=== PATIENT | female | born 1970 | race Caucasian/White ===

== ENCOUNTER → 2017-05-08 | Outpatient (CLI) | payer OTHER ==
[~2017-05-08] VITALS: Ht 167.6 cm; Wt 83.9 kg
[~2017-05-08] MED LIST: BUPROPION HCL150 M1 PO; DICLOFENAC-MIS1 EAC1 PO; HYDROCODONE-APA1 TA1 PO; HYSINGLA ER30 MG PO; MELATONIN5 M1 PO; NEURONTIN 300300 M1 PO; PEPCID20 MG PO; PRILOSEC 20 MG20 MG PO; VITAMIN D1000 UNI1 PO; XANAX 0.5 MG0.5 MG PO
[2017-05-08 08:46] VITALS: BP 133/94
== END | disposition home or self-care (01) ==
LOC: PAIN 06:49
DX: M25.561 Pain in right knee (principal); M25.562 Pain in left knee; K92.89 Other specified diseases of the digestive system; F32.89 Other specified depressive episodes; F11.20 Opioid dependence, uncomplicated; Z98.890 Other specified postprocedural states

== ENCOUNTER → 2017-06-05 | Outpatient (CLI) | payer OTHER ==
[~2017-06-05] VITALS: Ht 165.1 cm; Wt 80.7 kg
--- NOTE | ~2017-06-05 | HPC ---
[facility] [address] PAIN MANAGEMENT CONSULTATION Name: FREDERIC CA Room #: REG NIYAH Vitale.#: [id number] Admission: 06/05/17 Attend Phys: Angela Cardoza MD Discharge: Date of : 74 Report #: [id number] THIS REPORT FOR: //name// CC: HENNY Knight DATE OF SERVICE: 06/05/2017 FOLLOWUP COMPLAINT: The Hysingla is helpful. FOLLOWUP HISTORY: The patient is a 46-year-old female who has been seen in the pain clinic because of bilateral knee pain. She has seen her orthopedic surgeon. He does not feel that a knee replacement is in order given the patient's young age. She states she indicates the pain is because of the bone around the knee, but not the knee joint itself. She is scheduling a visit to the [facility] for evaluation and possible treatment. She has found the Hysingla (slow release hydrocodone) helpful. She is happy with the once a day dosing. She does still feel that there is some residual pain, which is there particularly after work. This limits her ability to engage in activities she would like to. She does not have any significant bowel or bladder dysfunction. IMPRESSION: 1. Knee pain bilaterally -- the patient will go to [place] for evaluation. 2. Chronic colon problems, stomach problems, and emotional problems, stable at this juncture. RECOMMENDATION: A renewal of her script for Hysingla has been written, 30 mg 1 p.o. every day. We may consider increasing the dose at the next visit if her pain continues to be problematic. We discussed tolerance with opioid medications as well as the possibility of dependence and addiction. The patient feels that things are going reasonably well, this medication has enabled her to engage in activities she would not be able to. She is able to continue with her job. She would like to continue with her current medical regimen. Her is in attendance today. We would like to thank you for letting us participate in her care. We hope she continues to improve. By: [id number] Angela Cardoza MD /nt
[2017-06-05 08:07] VITALS: BP 127/88
== END | disposition home or self-care (01) ==
LOC: PAIN 06:54
DX: M25.562 Pain in left knee (principal); M25.561 Pain in right knee; Z87.891 Personal history of nicotine dependence

== ENCOUNTER → 2017-06-19 | Outpatient (CLI) | payer OTHER ==
[~2017-06-19] VITALS: Ht 165.1 cm; Wt 80.9 kg
[~2017-06-19] MED LIST changes: +AMITRIPTYLINE H10 M3 PO; +HYSINGLA ER40 MG PO
--- NOTE | ~2017-06-19 | HPC ---
[facility] [place] [address] PAIN MANAGEMENT CONSULTATION Name: FREDERIC CA Room #: REG NIYAH MominEulaliaMary.#: [id number] Admission: 06/19/17 Attend Phys: Angela Cardoza MD Discharge: Date of : 74 Report #: [id number] THIS REPORT FOR: //name// CC: JEFFERY White Nurse Practitioner Angela Cardoza DATE OF SERVICE: 06/19/2017 FOLLOWUP COMPLAINT: The medicine is not working very well. FOLLOWUP HISTORY: The patient is a 46-year-old female who has pain and discomfort involving her knees bilaterally. She is awaiting evaluation and possible treatment at the [facility]. She works for [employer]. She finds that hydrocodone 30 mg times, using Hysingla which is a slow release hydrocodone is not as effective. She rates her pain as 8 out of 10. Notes pain is worse with walking, sitting and it is more problematic for her to engage in activities of daily living and maintain her job. She would like to have her medications evaluated and has returned to the pain clinic. PHYSICAL EXAMINATION: Height 5 feet 5 inches, weight 170 pounds, BMI is 29, blood pressure 128/86, pulse 84, respirations 16, room air saturation is 99%. IMPRESSION: 1. Knee pain -- the patient has pain and discomfort in her knees. She is experiencing pain bilaterally. 2. Chronic colon problems, stomach problems, and emotional problems, stable. RECOMMENDATIONS: We discussed the treatment options. We will increase her Hysingla from 30 mg daily to the next dose which is 40 mg 1 p.o. every day. She will also try Elavil 10 mg at bedtime. She has been having quite a bit of difficulty in sleeping. Hopefully, this medication in conjunction with the change in Hysingla will help and provide more comfort as well as improved sleep and mood. We would like to thank you for letting us participate in her care. We hope she continues to improve. By: [id number] Angela Cardoza MD /
[2017-06-19 08:27] VITALS: BP 128/86
== END ==
LOC: PAIN 06:58
DX: M25.562 Pain in left knee (principal); M25.561 Pain in right knee

== ENCOUNTER → 2017-07-17 | Outpatient (CLI) | payer OTHER ==
[~2017-07-17] VITALS: Ht 165.1 cm; Wt 80.7 kg
[~2017-07-17] MED LIST changes: +AMITRIPTYLINE H25 M2 PO; +MOBIC15 MG PO; +NEXIUM40 MG PO
--- NOTE | ~2017-07-17 | HPC ---
[facility] [place] [place] [address] PAIN MANAGEMENT CONSULTATION Name: FREDERIC CA Room #: REG NIYAH Mazariegos#: [id number] Admission: 07/17/17 Attend Phys: Angela Cardoza MD Discharge: Date of : 74 Report #: [id number] THIS REPORT FOR: //name// CC: JEFFERY Cardoza DATE OF SERVICE: 07/17/2017 FOLLOWUP COMPLAINT: I am doing okay. FOLLOWUP HISTORY: The patient is a 46-year-old female. As you recall, she has pain and discomfort which is quite problematic in both knees. She has had radicular genicular neurotomy on her knees. She felt that these had been beneficial, but feels that the affect is beginning to wane at this juncture. She is hopefully to go to the [facility] for evaluation. She has sent her information to them and awaiting response. She feels that sleep is still somewhat problematic. She has had no problems with use of Elavil and finds that this medication is helpful. She feels that the slow release hydrocodone remains helpful, albeit it does not alleviate all of her pain. She continues to work. PHYSICAL EXAMINATION: Blood pressure 126/87, pulse 99, respiratory rate 14, room air saturation 100, height 5 feet 5 inches, weight 178 pounds, BMI 29. She has not fallen since we saw her last. She continues to remain gainfully employed. IMPRESSION: 1. Chronic knee pain, status post bilateral genicular neurotomy. 2. History of stomach problems. 3. History of emotional problems, stable. RECOMMENDATIONS: We discussed treatment options with the patient. We will continue with her current medical regimen of Hysingla ER 40 mg daily. She will also try Mobic 15 mg 1 p.o. every day. She will be mindful of the GI effects. She will try Elavil 25 mg at bedtime and if her pain and sleep remained problematic, she will increase this to 50 mg nightly. She will call us if she has any problems with her medications. We would like to thank you for letting us participate in her care. We hope she continues to improve. By: [id number] Angela Cardoza MD /RASHARD
[2017-07-17 08:14] VITALS: BP 126/87
== END | disposition home or self-care (01) ==
LOC: PAIN 06:53
DX: M25.569 Pain in unspecified knee (principal); Z87.891 Personal history of nicotine dependence

== ENCOUNTER → 2017-11-06 | Outpatient (CLI) | payer OTHER ==
[~2017-11-06] VITALS: Ht 167.6 cm; Wt 85.3 kg
[~2017-11-06] MED LIST changes: +AMITRIPTYLINE H75 M1 PO; +AMITRIPTYLINE100 MG PO; +HYDROCODONE-AP1 EAC6 PO; +HYSINGLA ER60 MG PO; +MAGOX 400400 MG PO; +OXYCODONE HCL10 MG PO; +PERCOCET 10-321 EACH PO; +TOPICAL CREAM TOP; +VITAMIN C1000 MG PO
--- NOTE | ~2017-11-06 | HPC ---
[facility] [address] [address] PAIN MANAGEMENT CONSULTATION Name: FREDERIC CA Room #: REG NIYAH Delilah#: [id number] Admission: 11/06/17 Attend Phys: Angela Cardoza MD Discharge: Date of : 74 Report #: [id number] THIS REPORT FOR: //name// CC: JEFFERY Cardoza ____ ____ DATE OF SERVICE: 11/06/2017 CHIEF COMPLAINT: "Pain in both knees when walking. I went to the [facility] and they think they could be helpful." FOLLOWUP HISTORY: The patient is a 47-year-old female who has been seen in the pain clinic because of chronic pain and discomfort involving her knees bilaterally. She finds that ambulation during the course of the day is quite problematic. She worked for the [employer]. There is a significant amount of walking involved. She finds at end of the day, her pain is quite problematic. She looked into treatment options. She was granted a visit to the [facility]. She recently went to the [facility]. She saw one of the orthopedic physicians. They stated that they have seen patients with pain condition similar to hers. They have a procedure where they drill holes into the affected bones. This has improved treatment in a number of patients. She states that 3 out of 4 patients have improved from this procedure. She feels that this might be a reasonable alternative. She would like to lessen the use of chronic medications. They stated that this is not a cure, but can be helpful in decreasing the chronic pain, which she continues to experience. ALLERGIES: No known drug allergies. CURRENT MEDICATIONS: Nexium 40 mg daily, melatonin 5 mg at bedtime, vitamin D, alprazolam 0.5 mg p.r.n. anxiety, bupropion 150 mg b.i.d., gabapentin 300 mg b.i.d., meloxicam 15 mg, Elavil 75 mg daily, Hysingla 40 mg daily. PHYSICAL EXAMINATION: VITAL SIGNS: Blood pressure 137/95, pulse 98, respiratory rate 14, room air saturation 100%. Height 5 feet 6 inches, weight 188 pounds, BMI is 30. The patient has not fallen since we saw her last. She is continuing to stay as active as possible. HEENT: Nontraumatic ear, eyes and nose unremarkable. Buccal membranes wet/moist. NECK: Nontender. CHEST: Clear. Nonlabored. ABDOMEN: Not problematic. BACK: No complaints. EXTREMITIES: The patient continues to have pain and discomfort in her knees bilaterally. Describes it as a pressure sensation, stabbing sensation, some [address] [address] PAIN MANAGEMENT CONSULTATION Name: FREDERIC CA Room #: REG CL Winifred.#: [id number] Admission: 11/06/17 Attend Phys: Angela Cardoza MD Discharge: Date of : 74 Report #: [id number] aching, rates it as a 2-3 with her current medical regimen. Exacerbated with walking, sitting and tripping. Muscle strength is judged to be 5/5 for the major muscle groups of lower extremities. ASSESSMENT: 1. Chronic bilateral knee pains, status post bilateral genicular neurotomy. 2. Chronic treatment with opioid therapy and gabapentin, which is helpful. 3. History of stomach problems. The patient is taking Mobic. She will monitor GI system for complications associated with nonsteroidals. 4. History of emotional problems, stable at this juncture. Orientation: Alert and oriented. Affect seems appropriate. RECOMMENDATIONS: We will continue with the patient's current medical regimen. She seems a bit more at ease today. She is hopeful that a treatment at the [facility] would be helpful. She states that the outcome looks promising. They have not promise or any unreal expectations. She and her are happy that there are options. They states that the folks at the [facility] said that this is the only option that they know of. They are contemplating taking it. They are trying to figure out when it would be most convenient for them to undergo the treatment given his and her work schedule. We would like to thank you for letting us participate in her care. She has noticed that her pain still is present. Feels that she is sleeping a little less at night and feels that an increase in her Elavil might be helpful. We will increase her Elavil from 75 mg per night to 100. We will continue with Mobic 15 mg daily. We will continue with Hysingla 40 mg daily. We would like to thank you for letting us participate in her care. We hope she continues to improve. <ELECTRONICALLY SIGNED> By: Angela Cardoza MD 11/27/17 1332 [id number] Angela Cardoza MD /RASHARD
[2017-11-06 08:33] VITALS: BP 137/95
== END ==
LOC: PAIN 06:53
DX: G89.29 Other chronic pain (principal); M25.561 Pain in right knee; M25.562 Pain in left knee; F11.90 Opioid use, unspecified, uncomplicated

== ENCOUNTER → 2018-02-10 | Outpatient (CLI) | payer OTHER ==
[~2018-02-10] VITALS: Ht 165.1 cm; Wt 85.7 kg
[~2018-02-10] MED LIST changes: -HYSINGLA ER60 MG PO; -OXYCODONE HCL10 MG PO; -PERCOCET 10-321 EACH PO; -TOPICAL CREAM TOP; -VITAMIN C1000 MG PO
--- NOTE | ~2018-02-10 | HPC ---
[facility] [address] [place] [address] PAIN MANAGEMENT CONSULTATION Name: FREDERIC CA Room #: REG NIYAH Winifred.#: [id number] Admission: 02/10/18 Attend Phys: Angela Cardoza MD Discharge: Date of : 74 Report #: [id number] THIS REPORT FOR: //name// CC: JEFFERY Cardoza DATE OF SERVICE: 02/10/2018 FOLLOWUP COMPLAINT: Here for medications. FOLLOWUP HISTORY: The patient is a 47-year-old female who has been seen in the pain clinic because of pain. As you recall, she has pain and discomfort involving her knees. This has been problematic for the past few years. She was walking and fell and injured her knee a few years ago. Since that time, she has seen a number of orthopedic physicians. She has been seen at the [facility]. 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 She has had injections in her knees. She has had nerve procedures around her need to help decrease the pain, but finds that it continues to be problematic. At this juncture, she is slated to go on vacation. After she goes on vacation, she will go to the [facility] at which time she will undergo a special procedure to help with her pain. She states that they will drill holes in the affected bones with a hope that as things continue to improve. This pain would help. States that there has been about 3 x 75% likelihood of improvement. She is going to go on vacation at this juncture. She has elected to go on vacation before trying this procedure. I would like to have her medications renewed at this juncture. She has had no complication from their use. Finds that they continue to be helpful. Continues to work at [employer] and her capacity with use of these medications. There is no confusing or confusion or alteration in her sensorium. She finds that she is able to work with good vigor using these medications. ALLERGIES: No known drug allergies. MEDICATIONS: Nexium 40 mg, melatonin 5 mg at bedtime, vitamin D, alprazolam 0.5 mg p.r.n. anxiety, bupropion 150 mg b.i.d., gabapentin 300 mg b.i.d., Meloxicam 15 mg, Elavil 75 mg, Hysingla 40 mg daily (slow release fentanyl). PAIN CLINIC ASSESSMENT: 1. History of osteoarthritis involving her knees. 2. Height 5 feet 5 inches, weight 189 pounds, BMI is 31.5. 3. Vital Signs: Blood pressure 158/89. Pulse 88, respiratory rate 16, room air saturation 98%. 4. Pain intensity /10. 5. Fall risk. The patient has not fallen in the last 3 months. 6. Blood thinner. The patient is [place] [address] PAIN MANAGEMENT CONSULTATION Name: FREDERIC CA Room #: REG NIYAH Mazariegos#: [id number] Admission: 02/10/18 Attend Phys: Angela Cardoza MD Discharge: Date of : 74 Report #: [id number] 7. Hypertension. The patient has not been treated for hypertension. 8. Opioid therapy. The patient is receiving her opioid medications through one source here at the pain clinic. 9. Risk assessment tool . 10. Functional assessment tool. 11. Recreational drug use. The patient denies use of recreational drug use. 12. Former tobacco smoker. 13. The patient denies use of alcoholic beverages. PHYSICAL EXAMINATION: GENERAL: The patient is a well-developed white female, appears her stated age. She is alert and oriented x 3. Affect is appropriate. Speech is fluent. HEENT: Normocephalic, atraumatic. Extraocular muscles intact. Sclerae nonicteric. Hearing is within normal limits. Mucous membranes are moist. NECK: Good range of motion in her neck, nontender. CHEST: Clear to auscultation without rhonchi or rales. HEART: Regular rate with normal S1, S2. ABDOMEN: Nontender. BACK: Without significant kyphosis, scoliosis, lordosis. EXTREMITIES: The patient has upper extremities, which are 5/5 with some symmetry without sensory changes. Muscle strength is judged to be 5/5. Lower extremities, the patient has some pain and discomfort with stabbing sensation in the area of her knees. Rates it as a 2-3. Exacerbated by walking, standing. Muscle strength is judged to be 5/5, but has pain and discomfort in the knee areas. IMPRESSION: 1. Chronic bilateral knee pain, status post genicular neurotomy. 2. Chronic treatment of opioid therapy and gabapentin, which is helpful. 3. History of stomach problems. 4. The patient is on Mobic. She will continue to monitor her GI tract because of use of nonsteroidals. 5. History of emotional problems, stable at this juncture. Alert, oriented. Mood and affect is appropriate. RECOMMENDATIONS: We discussed treatment options with the patient. A script for her medications of hydrocodone 5/325 mg one p.o. b.i.d. and hydrocodone using Hysingla has been released. The patient states that she is going to go to [place]. Hopefully, she has a great time. After she returned. She will then schedule her appointment and procedure at [facility]. She will call us if she has any problems with her medications. We would like to thank you for letting us participate in her care. We hope she continues to improve. <ELECTRONICALLY SIGNED> By: Angela Cardoza MD 02/16/18 0823 1420 51 Angela Cardoza MD /[facility]
[2018-02-10 12:32] VITALS: BP 158/89
== END ==
LOC: PAIN 07:11
DX: G89.29 Other chronic pain (principal); M25.562 Pain in left knee; M25.561 Pain in right knee; Z79.899 Other long term (current) drug therapy

== ENCOUNTER → 2018-04-07 | Outpatient (CLI) | payer OTHER ==
[~2018-04-07] VITALS: Ht 167.6 cm; Wt 84.4 kg
[~2018-04-07] MED LIST changes: +VITAMIN C1000 MG PO
--- NOTE | ~2018-04-07 | HPC ---
[facility] [place] [address] PAIN MANAGEMENT CONSULTATION Name: FREDERIC CA Room #: REG NIYAH Winifred.#: [id number] Admission: 04/07/18 Attend Phys: Angela Cardoza MD Discharge: Date of : 74 Report #: [id number] THIS REPORT FOR: //name// CC: JEFFERY Cardoza Physician staff DATE OF SERVICE: 04/07/2018 FOLLOWUP COMPLAINT: "I am going to [place] and I going consider having my knee surgery. When I get back. FOLLOWUP HISTORY: The patient is a 47-year-old female who has been seen in the pain clinic because of chronic pain. As you know, she has pain and discomfort involving her knees. She has been to the [facility]. They have given her the option of surgery that might be helpful in decreasing the pain and discomfort she is experiencing. She is using opioid medications to help with her pain. She has some avascular changes in her knee. She has undergone injections as well as some ablations of nerves around her knee without any long-term benefit. States that she is going to go to [facility]. She states that there is a procedure where they will do some drilling of holes in her knee with a hope that this will improve the pain. She is going on a vacation to [facility]. She would like to have her medications release prior to going to [facility]. She has had no complications with use of her medications. Feels that her sensorium stays clear. Finds that these medications are efficacious. Has heard of the problems with opioid medications that in 2016 about 45,000 people as a result of opioid medications. She feels her medications are helpful, takes them as prescribed. Keeps them in a guarded area. ALLERGIES: No known drug allergies. MEDICATIONS: Nexium 40 mg, melatonin 5 mg at bedtime, vitamin D, alprazolam 0.5 mg p.r.n. anxiety, buspirone 150 mg b.i.d., gabapentin 300 mg b.i.d., Meloxicam 15 mg, Elavil 75 mg, slow release hydrocodone 40 mg, Hysingla daily, hydrocodone 5 mg 1 p.o. t.i.d. PAIN CLINIC ASSESSMENT: 1. History of osteoarthritis involving her knees bilaterally. The patient is not being treated for rheumatoid arthritis. 2. Height 5 feet 6 inches, weight 186 pounds, BMI is 30. 3. Vital signs: Blood pressure 135/83, pulse 94, respiratory rate 16, room air saturation is 98%. 4. Pain intensity 7/10. 5. Fall risk. The patient has not fallen in the last 3 months. 6. Blood thinner. The patient is not on a blood thinning medication. [address] [address] PAIN MANAGEMENT CONSULTATION Name: FREDERIC CA [facility] #[facility] [id number] Admission: 04/07/18 Attend Phys: Angela Cardoza MD Discharge: Date of : 74 Report #: [id number] 7. History of hypertension. The patient is not being treated for hypertension. 8. Opioid therapy greater than 6 weeks. The patient gets her medications from 1 pain source. 9. Risk assessment tool is low for opioid use. 10. Functional assessment tool 40/70 showing moderate problems with activities of daily living secondary to pain. 11. Recreational drug use, greater than 3 months. The patient denies use of opioid medications or recreational drugs other than those prescribed by her physicians. 12. Tobacco: The patient is a former smoker. 13. Alcohol. The patient has used alcohol in the past that was not drink on a regular basis. PHYSICAL EXAMINATION: GENERAL: The patient is a well-developed white female. She appears her stated age. She is alert and oriented x 3. Affect is appropriate. Speech is fluent. HEENT: Normocephalic, atraumatic. Extraocular eye muscles intact. Sclerae nonicteric. Mucous membranes are moist. NECK: Without adenopathy or JVD. Good range of motion, nontender. CHEST: Clear to auscultation without rhonchi or rales. HEART: Regular rate, normal S1, S2. ABDOMEN: Nontender. BACK: Without significant kyphosis, scoliosis, or lordosis. EXTREMITIES: The upper area judged to be 5/5 with symmetry without sensory changes. Muscular strength is judged to be 5/5. Lower extremity muscle strength judged to be 5/5 with the patient having pain and discomfort in her knees bilaterally. Pain is exacerbated with walking and standing. The patient has some discomfort in her knees and rates it as a 7/10. IMPRESSION: 1. Chronic bilateral knee pain status post genicular neurotomy. 2. Chronic opioid therapy and gabapentin helpful for pain. 3. History of stomach problems. 4. Continues to use Mobic and monitors her GI tract regarding use of nonsteroidal anti-inflammatory medication. 5. History of emotional problems -- stable at this point. Alert and oriented. Mood and affect is appropriate. The patient is excited about going to [place]. RECOMMENDATIONS: We discussed treatment options with the patient. Risks and benefits of hydrocodone were again discussed. She feels that these medications are helpful. She is going to [place]. They are going to leave in April on about . We will make her medications available on 05/04/2018, so she can take them with her. She will call us if she has any problems with her medications. Hopefully, things continue to improve. States that she is going to [facility] for her surgery after return from her vacation in [place]. Hopefully, things [facility] [address] [place] [address] PAIN MANAGEMENT CONSULTATION Name: FREDERIC CA Room #: REG [facility] Lon.#: [id number] Admission: 04/07/18 Attend Phys: Angela Cardoza MD Discharge: Date of : 74 Report #: [id number] will continue to improve. We would like to thank you for letting us participate in her care. We hope she continues to improve. By: [id number] Angela Cardoza MD /RASHARD
[2018-04-07 08:27] VITALS: BP 135/83
== END ==
LOC: PAIN 07:07
DX: M25.561 Pain in right knee (principal); M25.562 Pain in left knee; G89.29 Other chronic pain; Z79.891 Long term (current) use of opiate analgesic

== ENCOUNTER → 2018-06-09 | Outpatient (CLI) | payer OTHER ==
[~2018-06-09] VITALS: Ht 165.1 cm; Wt 81.6 kg
[~2018-06-09] MED LIST changes: +PERCOCET 10-321 EACH PO
--- NOTE | ~2018-06-09 | HPC ---
[facility] [place] [address] PAIN MANAGEMENT CONSULTATION Name: FREDERIC CA Room #: REG NIYAH Winifred.#: [id number] Admission: 06/09/18 Attend Phys: Angela Cardoza MD Discharge: Date of : 74 Report #: [id number] THIS REPORT FOR: //name// CC: JEFFERY Cardoza Physician staff DATE OF SERVICE: 06/09/2018 FOLLOWUP COMPLAINT: Here for followup. "I had my surgery. Things are going well." FOLLOWUP HISTORY: The patient is a 47-year-old female who has been followed in the pain clinic because of chronic pain involving her knees bilaterally. She has a unique pain syndrome. She has gone to [facility]. She underwent a special procedure to try to improve the pain in her knees. States there was a number of holes drilled. Bone marrow was placed. She has been feeling reasonably well. Still has her sites covered and stitches are in. The patient was told that she should come to a physician in another week and have the stitches removed. She is not having any signs of infection. No real concerns. She is feeling that there may be some improvements in her knees at this juncture. She is still completely nonweightbearing for a number of months. She did go on her trip to [place] with her family. They had a great time. ALLERGIES: No known drug allergies. MEDICATIONS: Nexium 40 mg, melatonin 5 mg at bedtime, vitamin D, alprazolam 0.5 mg, buspirone 150 mg b.i.d., gabapentin 300 mg b.i.d., Meloxicam 15 mg, Elavil 75 mg slow release, hydrocodone (Hysingla) 5 mg t.i.d. PAIN CLINIC ASSESSMENT: 1. The patient does have osteoarthritic changes involving her knees and she has not been treated for rheumatoid arthritis. 2. Height 5 feet 5 inches, weight 180 pounds, BMI is 30. 3. Vital signs: Blood pressure 122/73, pulse 95, respiratory rate 16, room air saturation 97%. Pain intensity 04/04. 4. Fall risk. The patient has not fallen, but is unable to weightbear for the next number of months. 5. Blood thinner. The patient is not on blood thinning medication. 6. Hypertension. The patient is not be true for hypertension. 7. Opioid therapy greater than 6 weeks. The patient is on opioid therapy through the pain clinic. 8. Risk assessment tool, low for opioid use. 9. Functional assessment tool 40/70. 10. Recreational drug use. The patient denies use of recreational drugs. 11. Tobacco: The [place] [address] PAIN MANAGEMENT CONSULTATION Name: FREDERIC CA Room #: REG CLElise Vitale.#: [id number] Admission: 06/09/18 Attend Phys: Angela Cardoza MD Discharge: Date of : 74 Report #: [id number] 12. Alcohol: The patient denies frequent alcohol use. PHYSICAL EXAMINATION: GENERAL: The patient is a well-developed, well-nourished white female, appears her stated age. She is alert and oriented x 3. Affect is appropriate. Speech is fluent. HEENT: Normocephalic, atraumatic. Extraocular muscles intact. Sclerae nonicteric. Mucous membranes are moist. NECK: Without adenopathy or JVD. Good range of motion, nontender. CHEST: Clear to auscultation without rhonchi or rales. HEART: Regular rate. S1, S2. ABDOMEN: Nontender. BACK: Without significant scoliosis, kyphosis or lordosis. EXTREMITIES: Upper extremities strength is judged to be 5/5 with symmetry and without sensory changes. Strength is judged to be 5/5. Lower extremity muscle strength is difficult to assess secondary to patient's recent surgery. There is some swelling in the lower extremity as one would expect because of the patient constantly being in a dependent position. The patient has not noticed any signs of infection. She still has bandages still in place. IMPRESSION: 1. Chronic bilateral knee pain status post surgery at [facility] with bandages still in place. 2. Chronic opioid therapy and gabapentin, helpful. 3. History of stomach problems. 4. The patient will continue to monitor use of anti-inflammatory medications. The patient will continue with aspirin to lessen the chance of a DVT. 5. Emotional problems. The patient is stable at this juncture. Mood and affect is appropriate. RECOMMENDATIONS: We discussed treatment options with the patient. We will continue with her current medical regimen. She will return in the pain clinic in a week. At that time, we will remove the bandages. We will then continue to direct her pain medications. She will call us if she has any concerns. We would like to thank you for letting us participate in her care. We hope she continues to improve. By: [id number] Angela Cardoza MD /niya
[2018-06-09 08:17] VITALS: BP 122/73
== END ==
LOC: PAIN 06:51
DX: M25.561 Pain in right knee (principal); M25.562 Pain in left knee; G89.29 Other chronic pain; F98.9 Unspecified behavioral and emotional disorders with onset usually occurring in childhood and adolescence; Z79.891 Long term (current) use of opiate analgesic

== ENCOUNTER → 2018-06-16 | Outpatient (CLI) | payer OTHER ==
[~2018-06-16] VITALS: Ht 165.1 cm; Wt 81.6 kg
[~2018-06-16] MED LIST changes: +TOPICAL CREAM TOP
--- NOTE | ~2018-06-16 | HPC ---
[facility] [place] [address] PAIN MANAGEMENT CONSULTATION Name: FREDERIC CA Room #: REG NIYAH Delilah#: [id number] Admission: 06/16/18 Attend Phys: Angela Cardoza MD Discharge: Date of : 74 Report #: [id number] THIS REPORT FOR: //name// CC: JEFFERY Cardoza Physician staff DATE OF SERVICE: 06/16/2018 CHIEF COMPLAINT: "I am here to have the stitches taken out of my knees and sides. FOLLOWUP HISTORY: The patient is a 47-year-old female who has been followed in the pain clinic because of chronic pain. She has had pain, which involves her knees bilaterally. She has a unique pain syndrome, which is quite problematic. It is difficult to treat. The patient was seen at the [facility]. A series of drilling areas in her knees were performed. This was then filled with bone marrow. The patient is unable to bear weight for the next number of months. She returns today to have the stitches removed. Overall, things are going well. Has not had any problems with fevers or chills. No signs of swelling in the knees, left or right hip area. Overall, things are going reasonably well. She does note some increased pain. The patient did reflex least start to stand last night after she hurt her dogs barking. ALLERGIES: No known drug allergies. MEDICATIONS: Nexium 40 mg, melatonin 5 mg at bedtime, vitamin D, alprazolam 0.5 mg, buspirone 150 mg b.i.d., gabapentin 300 mg b.i.d., Meloxicam 15 mg, Elavil 75 mg slow release, hydrocodone (Hysingla) 5 mg t.i.d. PAIN CLINIC ASSESSMENT: 1. The patient does have osteoarthritic changes involving her knees. She has been treated by orthopedic doctors in the [facility]. 2. Height 5 feet 5 inches, weight 180 pounds, BMI is 30. 3. Vital signs: Blood pressure 144/95, pulse 100, respiratory rate 16, room air saturation 97%. Pain intensity 04/04. 4. Fall risk. The patient has not fallen. She does need assistance with standing. She is not to weightbear for the next couple of months. 5. Blood thinner. The patient is on a blood thinning medication. 6. History of hypertension. The patient has not been treated for hypertension. 7. Opiate therapy greater than 6 weeks. The patient is on a chronic opioid medication because of her chronic pain. 8. Risk assessment tool, low for use of opioid medication. 9. Functional assessment tool 40/70. 10. Recreational drug use. The patient denies use of recreational drugs over the last [address] [address] PAIN MANAGEMENT CONSULTATION Name: FREDERIC CA Room #: REG CL Delilah#: [id number] Admission: 06/16/18 Attend Phys: Angela Cardoza MD Discharge: Date of : 74 Report #: [id number] 11. Tobacco: The patient is a former smoker. 12. Alcohol: The patient denies use of alcoholic beverages. PHYSICAL EXAMINATION: GENERAL: The patient is a well-developed, well-nourished white female. She is alert and oriented x 3. Affect is appropriate. Mucous membranes are moist. HEENT: Normocephalic, atraumatic. Extraocular eye muscles intact. Sclerae nonicteric. Mucous membranes are moist. NECK: With good range of motion without JVD or bruits. HEART: Regular rate. S1, S2. LUNGS: Clear to auscultation without rhonchi or rales. ABDOMEN: Nontender. The patient is without significant scoliosis, kyphosis or lordosis. The patient has a well-healed areas on the left than the right iliac crest area in the anterior portion. Sutures are in place on both sides. Lower extremity, the patient has some pain in her knees bilaterally. Notes some swelling. Her sites were covered with bandages. IMPRESSION: Chronic knee pain status post surgery at [facility] to improve pain. RECOMMENDATION: 1. We discussed treatment options with the patient. We will remove the sutures. The patient has had no problems with signs of infection. 2. Chronic opioid use and gabapentin. 3. History of stomach problems. 4. Aspirin medications paperwork, the patient will continue this to decrease the chance of deep venous thrombosis. 5. Emotional problems. We discussed at our intentions. They are to remove the sutures. PROCEDURE NOTE: The patient was in a wheelchair. Left and right iliac areas were sterilely prepped with a chlorhexidine solution. Left and right knees were both sterilely prepped at the sites in the medial as well as lateral areas. This was allowed to dry. A sterile technique was used to remove the sutures on the left iliac area, right iliac area, right lateral knee, left medial sutures right sutures. Total of 10 sutures were removed, none had signs of infection. The patient will continue with her treatment, advise provided by the doctors at the [facility]. She will follow up with us as needed to renew her opioid medications. We would like to thank you for letting us participate in her care. We hope she continues to improve. By: [id number] Angela Cardoza MD /niya
[2018-06-16 14:15] VITALS: BP 144/95
== END ==
LOC: PAIN 08:01
DX: M25.561 Pain in right knee (principal); M25.562 Pain in left knee; G89.29 Other chronic pain; Z79.899 Other long term (current) drug therapy

== ENCOUNTER → 2018-07-16 | Outpatient (CLI) | payer OTHER ==
[~2018-07-16] VITALS: Ht 165.1 cm; Wt 85.8 kg
[~2018-07-16] MED LIST changes: +HYSINGLA ER60 MG PO; +OXYCODONE HCL10 MG PO
[2018-07-16 08:57] VITALS: BP 131/84
== END ==
LOC: PAIN 07:03
DX: M17.0 Bilateral primary osteoarthritis of knee (principal); Z79.899 Other long term (current) drug therapy

== ENCOUNTER → 2018-08-13 | Outpatient (CLI) | payer OTHER ==
[~2018-08-13] VITALS: Ht 165.1 cm; Wt 87.2 kg
[2018-08-13 08:26] VITALS: BP 145/97
== END ==
LOC: PAIN 06:46
DX: M25.561 Pain in right knee (principal); M25.562 Pain in left knee; Z79.891 Long term (current) use of opiate analgesic; Z79.899 Other long term (current) drug therapy; Z87.891 Personal history of nicotine dependence; Z72.89 Other problems related to lifestyle

== ENCOUNTER → 2018-09-10 | Outpatient (CLI) | payer OTHER ==
[~2018-09-10] VITALS: Ht 165.1 cm; Wt 83.9 kg
--- NOTE | ~2018-09-10 | HPC ---
[facility] [place] [address] [place] [address] PAIN MANAGEMENT CONSULTATION Name: FREDERIC CA Room #: REG NIYAH Winifred.#: [id number] Admission: 09/10/18 Attend Phys: Angela Cardoza MD Discharge: Date of : 74 Report #: [id number] THIS REPORT FOR: //name// CC: JEFFERY Cardoza Physician staff DATE OF SERVICE: 09/10/2018 FOLLOWUP COMPLAINT: The pain is better, I am back to work. FOLLOWUP HISTORY: The patient is a 47-year-old female who has been followed in the pain clinic. As you recall, she has a unique condition involving her knees. She has been seen in the past by the [facility]. She underwent a special surgery where her knees were prepared and bone marrow stem cells were injected. Overall, she feels that things are improving. She is up and walking now, she has returned to work. She feels that her pain is somewhat problematic, but states that she went to the zoo, walks about 5 mL. Notes some increased pain for about for a couple of days. Overall, things are going reasonably well, has not have any problem with her medications. She would like to continue with the Hysingla and oxycodone. She states that she is working with physical therapy. They are trying to strengthen her knee, her patellar area as well as the muscles around her kneecaps. MEDICATIONS: Nexium 40 mg, Meloxicam 15 mg at bedtime, vitamin D, alprazolam 0.5 mg, buspirone 150 mg b.i.d., gabapentin 300 mg b.i.d., Elavil 75 mg, hydrocodone/Hysingla 40 mg t.i.d. ALLERGIES: No known drug allergies. PAIN CLINIC ASSESSMENT/PQRS: 1. The patient does have osteoarthritic changes involving her knees. She is status post orthopedic surgery at [place]. 2. Rheumatoid arthritis. The patient has not been treated for rheumatoid arthritis. 3. Pain intensity 04/04. 4. Vital signs: Blood pressure 148/104, pulse 95, respiratory rate 14, room air saturation is 97%. 5. Height 5 feet 5 inches, weight 185 pounds, BMI is 30. 6. Fall risk. The patient has not fallen in the last 3 months. 7. Blood thinner. The patient is not on a blood thinning medication. 8. History of hypertension. The patient is not being treated for hypertension. 9. Opioid therapy for greater than 6 weeks. The patient receives her medication from one source, the pain clinic. 10. Risk assessment tool, low for opioid use. 11. [place] [address] PAIN MANAGEMENT CONSULTATION Name: FREDERIC CA KAREN Room #: REG NIYAH Mazariegos#: [id number] Admission: 09/10/18 Attend Phys: Angela Cardoza MD Discharge: Date of : 74 Report #: [id number] 12. Recreational drug use. The patient denies use of recreational drugs. 13. Tobacco. The patient is a former smoker. 14. Alcohol: The patient denies frequent use of alcoholic beverages. PHYSICAL EXAMINATION: GENERAL: The patient is a well-developed, well-nourished white female. Appears her stated age. She is alert and oriented x 3. Her affect is appropriate. Speech is fluent. HEENT: Normocephalic, atraumatic. Extraocular eye muscles intact. The patient's is with her. NECK: Good range of motion without JVD or bruits. HEART: Regular rate. S1, S2. LUNGS: Clear to auscultation without rhonchi or rales. ABDOMEN: Nontender. Bowel sounds are present. EXTREMITIES: The patient has with healing knees. She does have some pain and discomfort in the area of the patella bilaterally. States that there is some increased laxity secondary to decreased movement or use of them over the weeks where she was wheelchair bound. IMPRESSION: 1. Chronic knee pain, status post stem cell placement at [place]. 2. Depression. 3. Anxiety. RECOMMENDATIONS: We discussed treatment options with the patient. At this juncture, we will continue with her current medical regimen of oxycodone 1 p.o. q.i.d., total of 120 mg tablets have been provided. Hysingla 60 mg extended release 30 tablets. We would like to thank you for letting us participate in her care. We hope she continues to improve. By: [id number] Angela Cardoza MD /nt
[2018-09-10 08:13] VITALS: BP 148/104
== END ==
LOC: PAIN 07:09
DX: M25.569 Pain in unspecified knee (principal); G89.29 Other chronic pain; F32.9 Major depressive disorder, single episode, unspecified; F41.9 Anxiety disorder, unspecified

== ENCOUNTER → 2018-10-08 | Outpatient (CLI) | payer OTHER ==
[~2018-10-08] VITALS: Ht 165.1 cm; Wt 85.0 kg
--- NOTE | ~2018-10-08 | HPC ---
[facility] [place] [place] [address] PAIN MANAGEMENT CONSULTATION Name: FREDERIC CA Room #: REG NIYAH Winifred.#: [id number] Admission: 10/08/18 Attend Phys: Angela Cardoza MD Discharge: Date of : 74 Report #: [id number] THIS REPORT FOR: //name// CC: JEFFERY Cardoza Physician staff DATE OF SERVICE: 10/08/2018 FOLLOWUP HISTORY: "Things are going pretty well, I'm still working out in physical therapy." HISTORY: The patient is a 48-year-old female who has been followed in the pain clinic. As you recall, she has had a unique condition involving her knees. She has had pain and discomfort and has undergone special treatment at [facility]. She feels that things are going reasonably well. She has increase in the range of motion. She continues to exercise and is on a weightlifting program through the Physical Therapy Department. Overall, things are going reasonably well and she feels that her medications are helpful. She feels at this juncture, she is ready to decrease the opioid medications. She would like to continue to wean off of this medication that she is able to tolerate it. She has had no complications with the medications. She had no problems with GI upset as a result of the nonsteroidal anti-inflammatory medication. She feels that the Hysingla (hydrocodone), oxycodone are helpful. She has returned today for renewal for her medications. MEDICATIONS: Nexium 40 mg, Meloxicam 15 mg at bedtime, vitamin D, alprazolam 0.5 mg, buspirone 150 mg b.i.d., gabapentin 300 mg b.i.d., Elavil 75 mg, hydrocodone/Hysingla 40 mg t.i.d. ALLERGIES: No known drug allergies. PAIN CLINIC ASSESSMENT/PQRS: 1. The patient does have arthritic changes involving her knee. She is status post orthopedic surgery at the [facility]. She is not being treated for rheumatoid arthritis. 2. Pain intensity 02/02. 3. Fall history: The patient has not fallen. 4. Vital Signs: Blood pressure is 150/106, height 5 feet 5 inches, weight 187 pounds, BMI is 31. Room air saturation is 96%, pulse 88, respiratory rate 16. 5. Fall risk. The patient has not fallen in the last 3 months. 6. Blood thinner. The patient is not on a blood thinning medication. 7. Hypertension. The patient is hypertensive and is being evaluated by her primary for appropriate medications. 8. Opioid greater than 6 weeks. The patient is receiving opioid medications. 9. Risk assessment tool, low for opioid use. [address] [address] PAIN MANAGEMENT CONSULTATION Name: FREDERIC CA Room #: REG CLI [facility]#: [id number] Admission: 10/08/18 Attend Phys: Angela Cardoza MD Discharge: Date of : 74 Report #: [id number] 10. Functional assessment tool 40/70. 11. Recreational drug use. The patient denies use of recreational drugs. 12. Tobacco: The patient is a former smoker. Alcohol: The patient denies frequent use of alcoholic beverages. PHYSICAL EXAMINATION: GENERAL: The patient is a well-developed, well-nourished white female. Appears her stated age. She is alert and oriented x 3. Affect is appropriate. Speech is fluent. HEENT: Normocephalic, atraumatic. Extraocular eye muscles intact. Sclerae nonicteric. NECK: With good range of motion. HEART: Regular rate. S1, S2. LUNGS: Clear to auscultation without rales or rhonchi. ABDOMEN: Nontender. Bowel sounds are present. EXTREMITIES: Upper extremity muscle strength is 5/5 for the major muscle groups. Lower extremity muscle strength is increasing as the patient continues with physical therapy. The patient has some increased pain on the right side as opposed to the left. ASSESSMENT: 1. Chronic knee pain status post stem cell placement at [place]. 2. Depression. 3. Anxiety. RECOMMENDATIONS: We discussed treatment options with the patient. At this point, she has asked that we decrease her opioid medication somewhat. Feels that she is taking a bit more medication that she needs at this juncture and is interested in trying as she is able to decrease her medications and get off the medications. We will decrease her oxycodone from 4 times daily to 3 times daily. A script for 90 mg tablets have been written. She will also continue with the Hysingla and Mobic. She will call us if she has any concerns. We would like to thank you for letting us participate in her care. We hope she continues to improve. By: [id number] Angela Cardoza MD /niya
[2018-10-08 08:01] VITALS: BP 150/101
== END ==
LOC: PAIN 05:48
DX: G89.29 Other chronic pain (principal); M25.561 Pain in right knee; M25.562 Pain in left knee; I10 Essential (primary) hypertension; Z79.899 Other long term (current) drug therapy; Z87.891 Personal history of nicotine dependence

== ENCOUNTER → 2018-11-05 | Outpatient (CLI) | payer OTHER ==
[~2018-11-05] VITALS: Ht 165.1 cm; Wt 85.0 kg
--- NOTE | ~2018-11-05 | HPC ---
[facility] [address] [place] [address] PAIN MANAGEMENT CONSULTATION Name: FREDERIC CA Room #: REG NIYAH Winifred.#: [id number] Admission: 11/05/18 Attend Phys: Angela Cardoza MD Discharge: Date of : 74 Report #: [id number] THIS REPORT FOR: //name// CC: JEFFERY Cardoza Physician staff DATE OF SERVICE: 11/05/2018 CHIEF COMPLAINT: "Things are going pretty well. ____ to start decreasing the opioid medication." HISTORY: The patient is a 48-year-old female who has been followed in the pain clinic. As you recall, she has a unique problem with her knees. She was treated with stem cell placement at the [facility]. She has noticed that things have improved. She is up and able to exercise and do more weightbearing at this juncture. Overall, she feels that her procedure has been beneficial. She still does have pain and discomfort. Overall, she feels that at this time she is ready to start weaning from her medications. She has been using Elavil medication. She thought it was only for sleep. She has not been taking at night to help with the pain. We have explained the benefits of that to her. The patient does not have any GI problems with her nonsteroidal anti-inflammatory medications. Feels the Hysingla is helpful. Feels the oxycodone is helpful as well. We will consider a decrease of her medications at the next visit. MEDICATIONS: Nexium 40 mg, Meloxicam 15 mg at bedtime, vitamin D, alprazolam 0.5 mg, buspirone 150 mg b.i.d., gabapentin 300 mg b.i.d., Elavil 75 mg, hydrocodone/Hysingla 40 one p.o. t.i.d. ALLERGIES: No known drug allergies. PAIN CLINIC ASSESSMENT/PQRS: 1. The patient is not being treated for rheumatoid arthritis. She does have orthopaedic problems and has had special knee surgery at [facility] to help with the chronic knee pain. 2. Height 5 feet 5 inches, weight 187 pounds, BMI is 31.2. 3. Vital signs: Blood pressure 146/94, pulse 96, respiratory rate 16, room air saturation is 100%. 4. Pain intensity 12/05. 5. Fall risk. The patient has not fallen in the last 3 months. 6. Blood thinner. The patient is not on a blood thinning medication. 7. Hypertension. The patient is not being treated for hypertension. 8. Opioid greater than 6 weeks. The patient is receiving her medications from [facility] [place] [address] PAIN MANAGEMENT CONSULTATION Name: FREDERIC CA KAREN Room #: REG NIYAH Mazariegos#: [id number] Admission: 11/05/18 Attend Phys: Angela Cardoza MD Discharge: Date of : 74 Report #: [id number] 9. Risk assessment tool, low for opioid use. 10. Functional assessment tool 40/70. 11. Recreational drug use. The patient denies use of recreational drugs. 12. Tobacco: The patient denies use of tobacco. 13. Alcohol: The patient denies regular use of alcoholic beverages. PHYSICAL EXAMINATION: GENERAL: The patient is a well-developed, well-nourished white female. Appears her stated age. She is alert and oriented x 3. Affect is appropriate. Speech is fluent. HEENT: Normocephalic, atraumatic. Extraocular eye muscles intact. Sclerae nonicteric. The patient is wearing glasses. NECK: With good range of motion. HEART: Regular rate. S1, S2. LUNGS: Clear to auscultation without rhonchi or rales. ABDOMEN: Nontender. Bowel sounds present. EXTREMITIES: Upper extremity muscle strength 5/5 for the major muscle groups. Lower extremity muscle strength 5-/5 for the lower extremity. The patient does walk with caution because of her knee problems. ASSESSMENT: 1. Chronic knee pain status post stem cell replacement at the [facility], improved. 2. Depression. 3. Anxiety. RECOMMENDATIONS: We discussed treatment options with the patient. At this juncture, we will continue with her current medical regimen. A script for her medications of OxyIR 10 mg 1 p.o. t.i.d. have been written. When she returns, we will decrease the patient's dose to OxyIR 1 p.o. b.i.d. down from t.i.d. The risks and benefits of opioid medications were again discussed with the patient. They include possibility of dependence as well as possibility of less effectiveness secondary to tolerance. She is aware of that. Overall, things are going reasonably well. She will call us if she has any concerns. A script for meloxicam and Hysingla 60 mg have been written. By: [id number] Angela Cardoza MD /RASHARD
[2018-11-05 08:02] VITALS: BP 146/94
--- NOTE | 2018-11-05 08:09 | NUR ---
Pain Clinic Assessment: 1. History of Osteoarthritis: YES History of Rheumatoid Arthritis: Not Applicable 2. Height: 5 ft. 5 in. 165.1 cm. Weight: 187.4 lb. oz. 85.004 kg. Patient's BMI: 31.2 3. Vital Signs: BP: 146/94 Pulse: 96 Resp: 16 Temp: 02 Sat: 100 ECG Mon: 4. Pain Intensity: 4 5. Fall Risk: Dizziness: N Needs help standing or walking: N Fallen in the last 3 months: N Fall risk comments: 6. Patient on Blood Thinner: None 7. History of Hypertension: N 8. Opioid Therapy greater than 6 weeks: Y Opiate Contract Signed: 06/19/17 9. Risk Assessment Tool Provided: LOW 10. Functional Assessment Tool: 11. Recreational Drug Use: Past greater than 3 mos Drug Type: Tobacco Use: Former Smoker Tobacco Type: Amount or Packs/day: How Many Years: Alcohol Use: Past use Frequency: Quant:
== END ==
LOC: PAIN 06:44
DX: M25.561 Pain in right knee (principal); M25.562 Pain in left knee; F32.9 Major depressive disorder, single episode, unspecified; F41.9 Anxiety disorder, unspecified; Z79.899 Other long term (current) drug therapy

== ENCOUNTER → 2018-12-03 | Outpatient (CLI) | payer OTHER ==
[~2018-12-03] VITALS: Ht 165.1 cm; Wt 85.5 kg
[~2018-12-03] MED LIST changes: +COZAAR 25 MG TA25 M1 PO
[2018-12-03 08:05] VITALS: BP 133/85
--- NOTE | 2018-12-03 08:13 | NUR ---
Pain Clinic Assessment: 1. History of Osteoarthritis: YES History of Rheumatoid Arthritis: Not Applicable 2. Height: 5 ft. 5 in. 165.1 cm. Weight: 188.6 lb. oz. 85.548 kg. Patient's BMI: 31.4 3. Vital Signs: BP: 133/85 Pulse: 94 Resp: 14 Temp: 02 Sat: 98 ECG Mon: 4. Pain Intensity: 3 5. Fall Risk: Dizziness: N Needs help standing or walking: N Fallen in the last 3 months: Y Fall risk comments: 6. Patient on Blood Thinner: None 7. History of Hypertension: N 8. Opioid Therapy greater than 6 weeks: Y Opiate Contract Signed: 06/19/17 9. Risk Assessment Tool Provided: LOW 10. Functional Assessment Tool: 11. Recreational Drug Use: Past greater than 3 mos Drug Type: Tobacco Use: Former Smoker Tobacco Type: Amount or Packs/day: How Many Years: Alcohol Use: Past use Frequency: Quant:
--- NOTE | 2018-12-06 07:25 | HPC ---
[facility] [address] [address] PAIN MANAGEMENT CONSULTATION Name: FREDERIC CA Room #: REG NIYAH Vitale.#: [id number] Admission: 12/03/18 Attend Phys: Radha Sorensen Discharge: Date of : 74 Report #: [id number] THIS REPORT FOR: //name// CC: Radha HENDERSON Physician staff DATE OF SERVICE: 12/03/2018 CHIEF COMPLAINT: Left knee pain. HISTORY OF PRESENT ILLNESS: This is a 48-year-old female who is followed in the pain clinic for knee pain. Today, she states that she is slowly getting better. Her pain score today is 3/10. Most recently, she had 2 falls from this snowy weather and complaining of pain right below her kneecap today. She tells me that her medications are very helpful. She has been trying to wean down on these medicines and would like to continue to decrease them today. She would like to be off as soon as she is able. She does tell me that the pharmacy did not have her Hysingla and she did not have that for about 4 days. She tells me that she suffered from diarrhea and other flu-like symptoms during those 4 days, though she was able to take her short-acting oxycodone. Today, she feels that she is able to decrease some more on her medications. She had not been having any problems with constipation or daytime sleepiness. ALLERGIES: No known drug allergies. CURRENT LIST OF MEDICATIONS: Cozaar 25 mg daily, amitriptyline 100 mg at bedtime as needed, OxyIR 10 mg up to 3 times a day, Hysingla ER 60 mg tablets daily, meloxicam 15 mg daily, ascorbic acid daily, Mag-Ox 400 daily, Nexium 40 mg tablets daily, melatonin 5 mg at bedtime, vitamin D 1000 units daily, Xanax as needed, bupropion 150 mg twice a day and gabapentin 600 mg twice a day. PQRS: She is being treated for arthritic knee issues for bilateral knees. She does not have any rheumatoid arthritis. Height is 5 feet 5 inches, weight 188, BMI is 31.4. Vital signs 123/85, pulse is 94, respirations 14, oxygen sat is 98. Pain score is 3/10. Fall risk: She denies dizziness, does not need help walking and standing, but has fallen in the last 3 months. The patient is not on any blood thinners nor hypertensive medicines. She does take opioids greater than 6 weeks; therefore, no opiate signed contract is on the chart. Her risk assessment tool is low. Her functional assessment is 40/70. Recreational drug use in the past. She is a former smoker and does not drink alcohol. Did check the prescription monitoring system. The patient is filling appropriately home medications, only they are off slightly on dates due to her fill times. The pharmacy not having her medications. She does get her alprazolam from her other provider. [address] [address] PAIN MANAGEMENT CONSULTATION Name: ROBYFREDERIC KAREN Room #: REG NIYAH Mazariegos#: [id number] Admission: 12/03/18 Attend Phys: Radha Sorensen Discharge: Date of : 74 Report #: [id number] PHYSICAL EXAMINATION: GENERAL: This is a well-developed, well-nourished, well-hydrated female, who appears her stated age. She is alert and orientated. Affect is appropriate. HEENT: Normocephalic, atraumatic. Extraocular eye muscles are intact. EXTREMITIES: Upper extremity strength judged to be 5/5 in the major muscle groups. Lower extremity judged to be 5/5 in the lower extremities. Does complain of left knee pain. Ecchymosis area noted on her left knee today. ASSESSMENT: 1. Chronic knee pain status post stem cell replacement at [facility]. 2. Depression. 3. Anxiety. We reviewed the fact that opiate medications are being used to provide analgesia adequate to support activities of daily living, not attempting to achieve a specific pain score on the 0-10 Visual Analog Scale. The current opiate medications are providing sufficient analgesia to allow the patient to participate in activities of daily living. The patient is not exhibiting any aberrant behavior suggestive of drug diversion. The patient is not having any adverse reactions to medications. The patient is not suffering from daytime somnolence or mental acuity changes. The patient is managing opiate-induced constipation with appropriate jfom-ftk-kzgagrs agents and dietary considerations. The patient was counseled on concern for caution with operating a motor vehicle while using opiate medications. A physical exam was performed and the patient's functional status was evaluated. All patients with back pain were advised against the bed rest greater than 4 days and were advised to return to normal activities. Pain score assessment was noted and the treatment plan was reviewed with the patient. All current medications, both prescribed and OTC were reviewed and reconciled on the electronic medical record. Tobacco screening was accomplished and smoking cessation was advised when indicated. BMI was noted and diet/exercise modification was recommended for all patients following outside normal parameters. I reviewed with the patient today their responsibilities to safeguard prescription medications, reviewed their responsibility to utilize medications only as prescribed by the physician. They are to seek and receive pain medications only from 1 physician group ([facility]). They are to use 1 pharmacy and keep the clinic informed if they change pharmacies. Their responsibilities include making followup visits in a timely fashion and to avoid abrupt discontinuation of medication usage. Their responsibilities further include bringing their medications (bottles from the pharmacy with residual pills) to the visit for possible confirmation of pill counts and the patient understands it is their responsibility to submit to random drug screens to ensure both that the medications prescribed are present, and that no other [facility] [address] [place] [address] PAIN MANAGEMENT CONSULTATION Name: ROBYFREDERIC KAREN Room #: REG NIYAH Mazariegos#: [id number] Admission: 12/03/18 Attend Phys: Radha Sorensen Discharge: Date of : 74 Report #: [id number] controlled substances are present. All prescriptions provided today were generated electronically. PLAN: 1. We discussed treatment options. Today, the patient tells me overall she is doing well. Her pain score is a 3. She would like to continue to try and decrease her medications. She tells me that she has been taking her Hysingla and about 2 of her breakthrough pain pills a day. It was originally planned to decrease her breakthrough, but the patient is willing to try to decrease her long-acting and continue at about her 2 to 3 of her breakthrough. 2. Scripts given today for Hysingla 40 mg 1 p.o. daily for 1 month, second medication is OxyIR 10 mg. The patient was given quantity 90 to try to decrease and take only 2 a day and if need be on bad days to take 3. 3. The patient will return in 5 weeks for an appointment. The patient has enough medicines to last this long and will bring her oxycodone scripts and pills with her, so we are able to simulation developer how many we should give her for the next month after that. At that time, we will consider decreasing again to Hysingla 30s or decreasing her breakthrough medicine. The patient is agreeable with this plan of care. This patient is seen today in collaboration with Dr. Ralph Cardoza. <ELECTRONICALLY SIGNED> By: Radha Sorensen 12/06/18 0725 [id number] Radha Sorensen /nt
== END ==
LOC: PAIN 07:09
DX: M25.562 Pain in left knee (principal); F32.9 Major depressive disorder, single episode, unspecified; F41.9 Anxiety disorder, unspecified; Z79.899 Other long term (current) drug therapy

== ENCOUNTER → 2019-02-04 | Outpatient (CLI) | payer OTHER ==
[~2019-02-04] VITALS: Ht 167.6 cm; Wt 84.0 kg
[~2019-02-04] MED LIST changes: +MEDROLDOSEPACK PO; +OMEPRAZOLE40 MG PO
[2019-02-04 08:00] VITALS: BP 131/79
--- NOTE | 2019-02-04 08:09 | NUR ---
Pain Clinic Assessment: 1. History of Osteoarthritis: YES History of Rheumatoid Arthritis: Not Applicable 2. Height: 5 ft. 6 in. 167.6 cm. Weight: 185.2 lb. oz. 84.006 kg. Patient's BMI: 29.9 3. Vital Signs: BP: 131/79 Pulse: 99 Resp: 16 Temp: 02 Sat: 97 ECG Mon: 4. Pain Intensity: 5-6 5. Fall Risk: Dizziness: N Needs help standing or walking: N Fallen in the last 3 months: N Fall risk comments: 6. Patient on Blood Thinner: None 7. History of Hypertension: Y 8. Opioid Therapy greater than 6 weeks: Y Opiate Contract Signed: 06/19/17 9. Risk Assessment Tool Provided: mod-5 10. Functional Assessment Tool: 11. Recreational Drug Use: Past greater than 3 mos Drug Type: Tobacco Use: Former Smoker Tobacco Type: Amount or Packs/day: How Many Years: Alcohol Use: Past use Frequency: Quant:
--- NOTE | 2019-02-07 07:15 | HPC ---
[facility] [address] [place] [address] PAIN MANAGEMENT CONSULTATION Name: FREDERIC CA Room #: REG Elise Vitale.#: [id number] Admission: 02/04/19 ������������������ Attend Phys: Radha Sorensen Discharge: ������������������ Date of : 74 Report #: [id number] THIS REPORT FOR: //name// CC: Radha HENDERSON Physician staff DATE OF SERVICE: 02/04/2019 CHIEF COMPLAINT: Bilateral knee pain. HISTORY OF PRESENT ILLNESS: The patient returns to the pain clinic today very tearful telling me that her pain is getting worse in her knees. She feels like the procedure that she had done was not helpful. She said she was better initially after her procedure at [facility], but now, she is back to where she was before. She is wondering if she could go back to Hysingla 60 mg tablets. She said she is not sleeping at night. She does not feel that the Elavil is helping her. She has been taking her Xanax that her primary care doctor gives her to help her sleep, but she knows she should not take that every day. She rates her pain score at 5-6 today, mostly an achy, tender, sore, throbbing feeling, worse when she is walking. She tells me that she has been trying to get ready for her daughter's graduation and helping out in the yard, but she can only do that 1 day before then she is at home with her legs elevated trying to decrease her pain. She has had another recent MRI. She has sent that to [facility], but has not heard back from them. She would like changes in her medicine or something to help her. ALLERGIES: No known drug allergies. MEDICATIONS: Amitriptyline 100 mg at bedtime, meloxicam 15 mg daily, OxyIR 10 mg p.r.n., Hysingla 40 mg daily, omeprazole 40 mg daily, losartan 25 mg 1-2 daily, ascorbic acid 1000 mg daily, Mag-Ox 400 daily, melatonin 5 at bedtime, vitamin D daily, Xanax 0.5 mg b.i.d. p.r.n., bupropion 150 mg b.i.d., gabapentin 600 mg b.i.d. PQRS: 1. She is treated for arthritic knees bilaterally. Denies any rheumatoid arthritis. 2. Height is 5 feet 6 inches, weight is 185, BMI is 29. 3. Vital signs: Blood pressure 131/79, pulse is 99, respirations 16, oxygen sat is 97%. 4. Pain score is 5-6. 5. Does not have any dizziness, does not need help walking, has not fallen in the last 3 months. 6. The patient is not on any blood thinners. Does have a history of hypertension. [address] [address] PAIN MANAGEMENT CONSULTATION Name: FREDERIC CA [id number] Admission: 02/04/19 ������������������ Attend Phys: Radha Sorensen Discharge: ������������������ Date of : 74 Report #: [id number] 7. Opiate therapy is greater than 6 weeks, therefore, an opioid signed contract is on the chart. Risk assessment tool is moderate. Her functional assessment is 42/70. 8. Recreational drug use, she denies. She is not a smoker and does not drink alcohol. We did check the prescription monitoring system. The patient is not due for her fills today, did bring in her pain medicine bottles and appears to have greater than half a month left of that. Breakthrough medicine, I explained that we need to keep her closer to her time for appointments and to make her next visit closer to the time she will be out of her oxycodone. PHYSICAL EXAMINATION: GENERAL: This is a well-developed, well-nourished, well-hydrated female who appears her stated age. She is tearful and depressed today. She is alert and oriented. HEENT: Normocephalic, atraumatic. Extraocular eye muscles are intact. EXTREMITIES: Upper extremity strength judged to be 5/5 in all major muscle groups. Lower extremity judged to be 5/5 bilaterally. She complains of knee achy pain, especially in her left leg today. No swelling noted. She does walk with a slightly antalgic gait. ASSESSMENT: 1. Knee pain, status post stem cell replacement done at [facility]. 2. Depression. 3. Anxiety. 4. Complex medication management under terms of written opioid agreement. We reviewed the fact that opiate medications are being used to provide analgesia adequate to support activities of daily living, not attempting to achieve a specific pain score on the 0-10 Visual Analog Scale. The current opiate medications are providing sufficient analgesia to allow the patient to participate in activities of daily living. The patient is not exhibiting any aberrant behavior suggestive of drug diversion. The patient is not having any adverse reactions to medications. The patient is not suffering from daytime somnolence or mental acuity changes. The patient is managing opiate-induced constipation with appropriate cjzt-tsm-amhskml agents and dietary considerations. The patient was counseled on concern for caution with operating a motor vehicle while using opiate medications. A physical exam was performed and the patient's functional status was evaluated. All patients with back pain were advised against the bed rest greater than 4 days and were advised to return to normal activities. Pain score assessment was noted and the treatment plan was reviewed with the patient. All current medications, both prescribed and OTC were reviewed and reconciled on the electronic medical record. Tobacco screening was accomplished and smoking cessation was advised when indicated. BMI was noted and diet/exercise [facility] [address] [place] [address] PAIN MANAGEMENT CONSULTATION Name: FREDERIC CA Room #: REG [facility] M..#: [id number] Admission: 02/04/19 ������������������ Attend Phys: Radha Sorensen Discharge: ������������������ Date of : 74 Report #: [id number] modification was recommended for all patients following outside normal parameters. I reviewed with the patient today their responsibilities to safeguard prescription medications, reviewed their responsibility to utilize medications only as prescribed by the physician. They are to seek and receive pain medications only from 1 physician group ( [facility]). They are to use 1 pharmacy and keep the clinic informed if they change pharmacies. Their responsibilities include making followup visits in a timely fashion and to avoid abrupt discontinuation of medication usage. Their responsibilities further include bringing their medications (bottles from the pharmacy with residual pills) to the visit for possible confirmation of pill counts and the patient understands it is their responsibility to submit to random drug screens to ensure both that the medications prescribed are present, and that no other controlled substances are present. All prescriptions provided today were generated electronically. PLAN: 1. I discussed treatment options with the patient and Dr. Cardoza today. Since the patient is having increased pain, we decided to keep her Hysingla at 40 mg daily, prescriptions given for that of #30 and we decided to increase her OxyIR 10 mg to take q.i.d. I encouraged the patient to take this medicine as needed allowing up to at least 4 times a day. 2. We will see what the [facility] says about her recent MRI. We do not have those reports in front of us today. 3. We did talk about her inability to sleep at night. She does complain of some dry mouth. Dr. Cardoza decided to increase her Elavil to 125 mg. If this is not helpful, after 2 weeks, she could increase it to 150 mg at bedtime. The patient tells me that she has not seen her psychologist or psychiatrist that we asked her to go see for her depression. I encouraged her to do that this month. 4. The patient tells me also that her Medrol Dosepak did help that we gave her to help reduce some of her pain at the last visit, but I explained to her that we cannot keep her on that medication halfway. 5. Dr. Cardoza collaborated on care today. We will see the patient in 1-month time. ��������������������������������������������� <ELECTRONICALLY SIGNED> ���������������������������������������� By: Radha Sorensen ��������������������������������������������� 02/07/19 0715 58 Radha Sorensen /niya
== END ==
LOC: PAIN 06:43
DX: M25.561 Pain in right knee (principal); M25.562 Pain in left knee; F41.9 Anxiety disorder, unspecified; F32.9 Major depressive disorder, single episode, unspecified; Z79.891 Long term (current) use of opiate analgesic; Z79.899 Other long term (current) drug therapy

== ENCOUNTER → 2019-03-11 | Outpatient (CLI) | payer OTHER ==
[~2019-03-11] VITALS: Ht 167.6 cm; Wt 83.6 kg
[2019-03-11 08:17] VITALS: BP 112/78
--- NOTE | 2019-03-11 08:44 | NUR ---
Pain Clinic Assessment: 1. History of Osteoarthritis: YES History of Rheumatoid Arthritis: Not Applicable 2. Height: 5 ft. 6 in. 167.6 cm. Weight: 184.2 lb. oz. 83.553 kg. Patient's BMI: 29.7 3. Vital Signs: BP: 112/78 Pulse: 89 Resp: 16 Temp: 02 Sat: 97 ECG Mon: 4. Pain Intensity: 8-9 5. Fall Risk: Dizziness: N Needs help standing or walking: N Fallen in the last 3 months: N Fall risk comments: 6. Patient on Blood Thinner: None 7. History of Hypertension: Y 8. Opioid Therapy greater than 6 weeks: Y Opiate Contract Signed: 06/19/17 9. Risk Assessment Tool Provided: mod-5 10. Functional Assessment Tool: 11. Recreational Drug Use: Past greater than 3 mos Drug Type: Tobacco Use: Former Smoker Tobacco Type: Amount or Packs/day: How Many Years: Alcohol Use: Past use Frequency: Quant:
--- NOTE | 2019-03-14 12:46 | HPC ---
[facility] [place] [address] PAIN MANAGEMENT CONSULTATION Name: FREDERIC CA Room #: REG [facility] Winifred.#: [id number] Admission: 03/11/19 ������������������ Attend Phys: Radha Sorensen Discharge: ������������������ Date of : 74 Report #: [id number] THIS REPORT FOR: //name// CC: Radha HENDERSON Physician staff DATE OF SERVICE: 03/11/2019 CHIEF COMPLAINT: Bilateral knee pain. HISTORY OF PRESENT ILLNESS: This is a pleasant 48-year-old female who returned to the pain clinic for a refill of her medications for her ongoing bilateral knee pain. She is tearful through part of this visit today. She tells me that her pain score is an 8 or 9. Yesterday, she was up on a chair, cleaning, working with drapes where she stepped down hard on her left knee, which caused increased pain. She tells me that some days, she has better pain control days than others and she keeps doing things to flare it up. Her medication has been helpful, though she does not take all of her oxycodone that is allowed to her in the day. The patient tells me that she did talk to the [facility] doctors regarding her previous MRI. They told her there were no significant changes that her knees were stable. As far as that goes, but they wanted her to see an tractor drill operator at [facility], named Dr. Andre Padilla. The patient has not made an appointment at this time. It takes about a month to get in and she needs to build up some vacation time before she can travel to [place] to make that appointment. He believes that there may be some endocrine system issues that are causing her avascular necrosis issues and degeneration, so he would like the patient to see this specialist that is at [facility]. ALLERGIES: No known drug allergies. MEDICATIONS: Amitriptyline 100 mg at night, oxycodone IR 10 mg p.r.n., Hysingla 40 mg daily, meloxicam 15 mg daily, omeprazole 40 mg daily, losartan 25 mg daily, topical cream as needed, vitamin C daily, Mag-Ox 400 daily, melatonin 5 mg at bedtime, vitamin D, Xanax p.r.n., bupropion 150 twice a day, Neurontin 600 mg twice a day. PQRS: She has osteoarthritis in her knees bilaterally. She denies any rheumatoid arthritis. Her height is 5 feet 6 inches, her weight is 184 pounds, BMI is 29. Vital signs: Blood pressure 112/78, pulse is 89, respirations 16, oxygen sat is 97, pain score is 8-9. Fall risk: Denies dizziness. Does not need help walking or standing. Has not fallen in the last 3 months. The patient is not on any blood thinners, but does take medicine for hypertension. Her opioid therapy is greater than six weeks; therefore, an opioid signed [address] [address] PAIN MANAGEMENT CONSULTATION Name: ROBYFREDERIC KAREN Room #: REG NIYAH Mazariegos#: [id number] Admission: 03/11/19 ������������������ Attend Phys: Radha Sorensen Discharge: ������������������ Date of : 74 Report #: [id number] contract is on the chart. Risk assessment tool is moderate. Functional assessment is 42/70. She states recreational drug use in the past. She is a former smoker and does not drink alcohol. We did check the prescription monitoring system. The patient is filling appropriately for her medications, though they were off about a week and a half for fills with no apparent abuse. She does fill them and keep them safeguarded and locked up. PHYSICAL EXAMINATION: GENERAL: This is a well-developed, well-nourished, well-hydrated female who appears her stated age. She is tearful and depressed again today. She is alert, placing her pain score at 8-9/10 today. HEENT: Normocephalic, atraumatic. Extraocular eye muscles are intact. Mucous membranes are moist. EXTREMITIES: Lower extremity strength judged to be 5/5 bilaterally. She does complain of knee achy pain, left knee is greater than the right of a throbbing. No swelling noted in her knees today. She walks with an antalgic gait. ASSESSMENT: 1. Knee pain, status post stem cell replacement done at [place]. 2. Depression. 3. Anxiety. 4. Complex medical management in terms of an opioid agreement. We reviewed the fact that opiate medications are being used to provide analgesia adequate to support activities of daily living, not attempting to achieve a specific pain score on the 0-10 Visual Analog Scale. The current opiate medications are providing sufficient analgesia to allow the patient to participate in activities of daily living. The patient is not exhibiting any aberrant behavior suggestive of drug diversion. The patient is not having any adverse reactions to medications. The patient is not suffering from daytime somnolence or mental acuity changes. The patient is managing opiate-induced constipation with appropriate kbrz-zgv-[id number] agents and dietary considerations. The patient was counseled on concern for caution with operating a motor vehicle while using opiate medications. A physical exam was performed and the patient's functional status was evaluated. All patients with back pain were advised against the bed rest greater than 4 days and were advised to return to normal activities. Pain score assessment was noted and the treatment plan was reviewed with the patient. All current medications, both prescribed and OTC were reviewed and reconciled on the electronic medical record. Tobacco screening was accomplished and smoking cessation was advised when indicated. BMI was noted and diet/exercise modification was recommended for all patients following outside normal parameters. [facility] [address] [place] [address] PAIN MANAGEMENT CONSULTATION Name: FREDERIC CA Room #: REG [facility]..#: [id number] Admission: 03/11/19 ������������������ Attend Phys: Radha Sorensen Discharge: ������������������ Date of : 74 Report #: [id number] I reviewed with the patient today their responsibilities to safeguard prescription medications, reviewed their responsibility to utilize medications only as prescribed by the physician. They are to seek and receive pain medications only from 1 physician group ( [facility]). They are to use 1 pharmacy and keep the clinic informed if they change pharmacies. Their responsibilities include making followup visits in a timely fashion and to avoid abrupt discontinuation of medication usage. Their responsibilities further include bringing their medications (bottles from the pharmacy with residual pills) to the visit for possible confirmation of pill counts and the patient understands it is their responsibility to submit to random drug screens to ensure both that the medications prescribed are present, and that no other controlled substances are present. All prescriptions provided today were generated electronically. PLAN: 1. We discussed treatment options with the patient today. The patient has been very active, getting ready for her daughter's graduation. She has had several recent flares when she has overdone her work getting ready for graduation. I encouraged her to use her tools that we have given her that are in her toolbox. She has not been utilizing her pain medicine as she is able. She does take the Hysingla every day with the OxyIR, she tries to limit it to 2-[address] Cardoza has enabled her to take 4 a day if she needs to. I encouraged the patient to do that, especially over the weekend while she will be more active and being on her feet with graduation exercises and family in time. We want her to be able to enjoy it and not suffer because she does not want to take her pain pills. 2. The patient will be seeing an tractor drill operator at [facility]. Appointment has not been set up yet to discuss if there is something going on within her body that is increasing this knee pain since the [place] doctors told her that per the MRI, nothing had changed or gotten worse since her surgery. 3. The patient denies any constipation or daytime sleepiness. She tells me she does sometimes have problems sleeping at night. She takes Elavil 100 mg, I encouraged her to take the [address] Cardoza had given her last month as well as her melatonin. She is allowed to take all those at one time. Script is given today for Hysingla 40 mg daily, #30 and OxyIR 10 mg q.i.d. This places the patient's morphine milliequivalent at 100 if she takes all of her oxycodone in a day. 4. Dr. Cardoza collaborated care today and saw the patient. The patient will return in 1 month for followup. ��������������������������������������������� <ELECTRONICALLY SIGNED> ���������������������������������������� By: Radha Sorensen ��������������������������������������������� 03/14/19 1246 41 Radha Sorensen /niya
== END ==
LOC: PAIN 06:52
DX: M17.0 Bilateral primary osteoarthritis of knee (principal); F32.9 Major depressive disorder, single episode, unspecified; F41.9 Anxiety disorder, unspecified; Z79.899 Other long term (current) drug therapy; Z79.891 Long term (current) use of opiate analgesic; Z87.891 Personal history of nicotine dependence

== ENCOUNTER → 2019-04-08 | Outpatient (CLI) | payer OTHER ==
[~2019-04-08] VITALS: Ht 167.6 cm; Wt 81.5 kg
[2019-04-08 08:18] VITALS: BP 117/78
--- NOTE | 2019-04-08 08:37 | NUR ---
Pain Clinic Assessment: 1. History of Osteoarthritis: YES History of Rheumatoid Arthritis: Not Applicable 2. Height: 5 ft. 6 in. 167.6 cm. Weight: 179.6 lb. oz. 81.466 kg. Patient's BMI: 29.0 3. Vital Signs: BP: 117/78 Pulse: 95 Resp: 16 Temp: 02 Sat: 97 ECG Mon: 4. Pain Intensity: 4-5 5. Fall Risk: Dizziness: N Needs help standing or walking: N Fallen in the last 3 months: N Fall risk comments: 6. Patient on Blood Thinner: None 7. History of Hypertension: Y 8. Opioid Therapy greater than 6 weeks: Y Opiate Contract Signed: 06/19/17 9. Risk Assessment Tool Provided: mod-5 10. Functional Assessment Tool: 11. Recreational Drug Use: Past greater than 3 mos Drug Type: Tobacco Use: Former Smoker Tobacco Type: Amount or Packs/day: How Many Years: Alcohol Use: Past use Frequency: Quant:
--- NOTE | 2019-04-11 09:27 | HPC ---
[facility] [place] [address] PAIN MANAGEMENT CONSULTATION Name: FREDERIC CA Room #: REG NIYAH Mazariegos#: [id number] Admission: 04/08/19 ������������������ Attend Phys: Radha Sorensen Discharge: ������������������ Date of : 74 Report #: [id number] THIS REPORT FOR: //name// CC: Radha HENDERSON Physician staff DATE OF SERVICE: 04/08/2019 CHIEF COMPLAINT: Bilateral knee pain. HISTORY OF PRESENT ILLNESS: This is a very pleasant 48-year-old female who returns to the pain clinic today for refill of her medications for her ongoing knee pain. She tells me overall, she feels like she is doing quite well, rating her pain at 4/5 today. She tells me she is finally learning to realize what she can and cannot do that causes an increase in her knee pain as a result of her avascular necrosis. She tells me it is an aching, tender pain in her left knee, especially though she does have some pain in her right as well. It is worse usually after walking or prolonged activity. The medications are very helpful. She denies any problems with constipation or daytime sleepiness. The patient tells the nurse and myself that she has had to pay out of pocket quite a bit for her Hysingla that the savings cards are no longer working and that her oxycodone she is having to pay wolf at the insurance is not covering. We did not receive any phone calls from her insurance company. We will attempt to get new savings cards to pass on to her. She does not want to change her medications. She tells me that she is able to pay out of pocket for these, though she wishes she did not have to pay quite as much for her Hysingla. ALLERGIES: No known drug allergies. CURRENT LIST OF MEDICATIONS: OxyIR 10 mg up to 4 times a day, Hysingla 40 mg daily, amitriptyline 125 mg daily, meloxicam 15 mg daily, omeprazole 40 mg daily, losartan 25 mg daily, vitamin C, magnesium, melatonin, vitamin D, Xanax p.r.n., bupropion 150 mg b.i.d. and Neurontin 600 mg b.i.d. PQRS: 1. She has osteoarthritis in her knees bilaterally. Denies any rheumatoid arthritis. 2. Height is 5 feet 6 inches, weight is 179, BMI is 29. 3. Vital signs: Blood pressure 117/78, pulse is 95, respirations 16, oxygen sat is 97%. Pain score is 4/5. 4. Fall risk. Denies dizziness. Does not need help walking or standing. Has not fallen in the last 3 months. The patient is not on any blood thinners, but does take medication for hypertension. Opioid therapy is greater than 6 weeks; therefore, an opiate signed contract is on the chart[place] [address] PAIN MANAGEMENT CONSULTATION Name: FREDERIC CA Room #: REG NIYAH Mazariegos#: [id number] Admission: 04/08/19 ������������������ Attend Phys: Radha Sorensen Discharge: ������������������ Date of : 74 Report #: [id number] is moderate. Functional assessment is 42/70. 5. Recreational drug use in the past. She denies smoking and does not drink alcohol. 6. We did check the prescription monitoring system. The patient is filling appropriately for her medications. We will check a drug screen on her in her next visit. She tells me she does safeguard her medications since she does have teenagers in the home. PHYSICAL EXAMINATION: GENERAL: This is a well-developed, well-nourished female who appears her stated age. She is alert and orientated, placing her pain score today at 4/5, appears less depressed today and tells me that she does not feel as depressed that she has in the past. HEENT: Normocephalic, atraumatic. Extraocular eye muscles are intact. Mucous membranes are moist. EXTREMITIES: Lower extremity strength judged to be 5/5 bilaterally. She has left knee tenderness below her patella that radiates into her right hawkins. No swelling noted in her leg today. She does walk with an antalgic gait. ASSESSMENT: 1. Knee pain, status post stem cell replacement at [facility] due to avascular necrosis. 2. Depression. 3. Anxiety. 4. Complex medical management under terms of written opioid agreement. We reviewed the fact that opiate medications are being used to provide analgesia adequate to support activities of daily living, not attempting to achieve a specific pain score on the 0-10 Visual Analog Scale. The current opiate medications are providing sufficient analgesia to allow the patient to participate in activities of daily living. The patient is not exhibiting any aberrant behavior suggestive of drug diversion. The patient is not having any adverse reactions to medications. The patient is not suffering from daytime somnolence or mental acuity changes. The patient is managing opiate-induced constipation with appropriate kect-qjb-gefbwwa agents and dietary considerations. The patient was counseled on concern for caution with operating a motor vehicle while using opiate medications. A physical exam was performed and the patient's functional status was evaluated. All patients with back pain were advised against the bed rest greater than 4 days and were advised to return to normal activities. Pain score assessment was noted and the treatment plan was reviewed with the patient. All current medications, both prescribed and OTC were reviewed and reconciled on the electronic medical record. Tobacco screening was accomplished and smoking cessation was advised when indicated. BMI was noted and diet/exercise modification was recommended for all patients following outside normal [facility] [address] [place] [address] PAIN MANAGEMENT CONSULTATION Name: FREDERIC CA Room #: REG [facility] M..#: [id number] Admission: 04/08/19 ������������������ Attend Phys: Radha Sorensen Discharge: ������������������ Date of : 74 Report #: [id number] parameters. I reviewed with the patient today their responsibilities to safeguard prescription medications, reviewed their responsibility to utilize medications only as prescribed by the physician. They are to seek and receive pain medications only from 1 physician group ( [facility]). They are to use 1 pharmacy and keep the clinic informed if they change pharmacies. Their responsibilities include making followup visits in a timely fashion and to avoid abrupt discontinuation of medication usage. Their responsibilities further include bringing their medications (bottles from the pharmacy with residual pills) to the visit for possible confirmation of pill counts and the patient understands it is their responsibility to submit to random drug screens to ensure both that the medications prescribed are present, and that no other controlled substances are present. All prescriptions provided today were generated electronically. PLAN: 1. We discussed treatment options with the patient today. The patient informed us that she has been having to pay out of pocket quite a large sum for her Hysingla since her saving cards are no longer working. We told her we will try to call our claims customer service representative and find out if we can help get a new card for her. She tells me that she wants to stay on her current medication and is able to pay the difference right now for her Hysingla out of pocket. Insurance does cover a portion of this. Prescription given today for her Hysingla 40 mg once a day, #30 and OxyIR 10 mg, #120 as well as meloxicam 15 mg, #30 with 2 additional refills. 2. The patient tells me she has not seen a psychologist yet, not able to get in to ones on her list. I encouraged her to check with her insurance company and see if there is one on her insurance that was closer to her house that she would be able to see to help her just talk through some issues she is having though she is feeling less depressed. I believe it is still a good thing to her to see a psychologist. 3. She is also trying to see property disposal manager at [facility]. She had called earlier this week to make an appointment there and she is waiting for a return phone call. 5. The patient will return in 1 month for followup. The patient seen in collaboration today with Dr. Eddi Arredondo who I discussed this case with and he is available by phone if I needed any further collaboration. ��������������������������������������������� <ELECTRONICALLY SIGNED> ���������������������������������������� By: Radha Sorensen ��������������������������������������������� 04/11/19 0927 [id number] Radha Sorensen /nt
== END ==
LOC: PAIN 06:47
DX: M25.561 Pain in right knee (principal); M25.562 Pain in left knee; F32.9 Major depressive disorder, single episode, unspecified; R41.9 Unspecified symptoms and signs involving cognitive functions and awareness; Z79.891 Long term (current) use of opiate analgesic

== ENCOUNTER → 2019-05-06 | Outpatient (CLI) | payer OTHER ==
[~2019-05-06] VITALS: Ht 167.6 cm; Wt 81.7 kg
--- NOTE | ~2019-05-06 | HPC ---
[facility] [place] [address] PAIN MANAGEMENT CONSULTATION Name: FREDERIC CA Room #: REG SARAHElise Mazariegos#: [id number] Admission: 05/06/19 ������������������ Attend Phys: Angela Cardoza MD Discharge: ������������������ Date of : 74 Report #: [id number] THIS REPORT FOR: //name// CC: Jaden Cardoza DATE OF SERVICE: 05/06/2019 CHIEF COMPLAINT: The pain has gotten worse. HISTORY: The patient is a pleasant 48-year-old female who has been followed in the pain clinic. As you recall, she has a very difficult situation. She has bilateral knee pain thought to be secondary to avascular necrosis. She has undergone treatment for this at the [facility]. Her pain continues to be problematic. She recently received a call from the surgeon at the [facility]. Maybe in the future there might a opportunity to perform the surgery again. At this juncture, he has asked that she see an imagery intelligence. It is felt that this imagery intelligence is one of the best in the field at this point. They reside in [place], [place]. She and her family are planning a vacation, visit to [place] [facility]. She has a cousin who is about to get . States that her pain is a 6-7. Left knee appears worse. 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 She has noticed worsening of her pain also associated with the 10-hour days, which she has been required to work. ALLERGIES: No known drug allergies. CURRENT MEDICATIONS: Oxy IR 10 mg up to 4 times daily, Hysingla 40 mg daily, amitriptyline 125 mg, meloxicam 15 mg, omeprazole 40 mg, losartan 25 mg, vitamin C, magnesium, melatonin, vitamin D, Xanax p.r.n., bupropion 150 mg b.i.d., and Neurontin 600 mg b.i.d. PAIN CLINIC ASSESSMENT AND PQRS: 1. The patient has osteoarthritic changes in her knees bilaterally. She is not being treated for rheumatoid arthritis. 2. Height 5 feet 6 inches, weight 180 pounds, BMI is 29.1. 3. Vital signs: Blood pressure 137/91, pulse 95, respiratory rate 16, saturation 95%. 4. Pain intensity 05/04. 5. Fall risk. The patient has not fallen in the last 3 months. 6. Blood thinner. The patient is not on a blood thinning medication. 7. Hypertension. The patient is being treated for hypertension. 8. Opioids greater than 6 weeks. The patient receives her medication from one source, the pain clinic. 9. Risk assessment tool, moderate for pain for opioid use ____. 10. Functional assessment tool 42/70. [address] [address] PAIN MANAGEMENT CONSULTATION Name: FREDERIC CA Room #: REG CL Delilah#: [id number] Admission: 05/06/19 ������������������ Attend Phys: Angela Cardoza MD Discharge: ������������������ Date of : 74 Report #: [id number] 11. Recreational drug use. The patient denies use of recreational drugs. 12. The patient is a former smoker. Alcohol: The patient denies frequent use of alcoholic beverages. PHYSICAL EXAMINATION: GENERAL: The patient is a well-developed, well-nourished white female. Appears her stated age. She is alert and oriented x 3. Affect is appropriate. Speech is fluent. HEENT: Normocephalic, atraumatic. Extraocular eye muscles intact. Sclerae nonicteric. Mucous membranes are moist. NECK: Without adenopathy or JVD. HEART: Regular rate. S1, S2. LUNGS: Clear to auscultation without rhonchi or rales. ABDOMEN: Nontender. Bowel sounds present. EXTREMITIES: Upper extremity muscle strength judged to be 5/5 for the major muscle groups in the upper extremity. The patient has pain and discomfort in her knees bilaterally, left more problematic than the right. Movement is problematic. The patient notes increased pain with prolonged standing. ASSESSMENT: 1. Chronic knee pain, status post stem cell replacement at [place]. 2. Avascular necrosis of the knees. 3. Depression. 4. Anxiety. RECOMMENDATIONS: We discussed treatment options with the patient. She is continuing to work. Finds her pain level has increased. We have discussed the risks and benefits of opioid medications. At this juncture, the patient is going on vacation. Feels that her pain is quite problematic and that her medications are not working as well as she would like. We will make adjustments to the patient's medication. She would like to go to her relatives wedding in [facility]. We will increase her OxyIR by 15 tablets. She will therefore use one tablet 4 times daily and a half tablet at bedtime. She feels that this is the time when her pain becomes "quite unrelenting." A script for Hysingla 40 mg has been rewritten. The patient will also continue with Mobic 15 mg every day. She will monitor her GI tract. Amitriptyline at 125 mg will be continued. The patient is trying to schedule an appointment to see the avascular necrosis specialist in [place]. She will call us if she has any pain concerns. We had conversation with the patient on numerous occasions the benefits and complications of opioid medication. She continues to be gainfully employed. She states she is taking the medications as prescribed. Her pain has increased. It initially improved after the surgery where as she was unable to walk and bear weight for a number of weeks. She is contemplating options. [address] [place] [address] PAIN MANAGEMENT CONSULTATION Name: FREDERIC CA Room #: REG [facility].#: [id number] Admission: 05/06/19 ������������������ Attend Phys: Angela Cardoza MD Discharge: ������������������ Date of : 74 Report #: [id number] We would like to thank you for letting us participate in her care. We hope she continues to improve. ��������������������������������������������� ���������������������������������������� By: ��������������������������������������������� [id number] Angela Cardoza MD /nt
[2019-05-06 08:20] VITALS: BP 137/91
--- NOTE | 2019-05-06 08:27 | NUR ---
Pain Clinic Assessment: 1. History of Osteoarthritis: YES History of Rheumatoid Arthritis: Not Applicable 2. Height: 5 ft. 6 in. 167.6 cm. Weight: 180.2 lb. oz. 81.738 kg. Patient's BMI: 29.1 3. Vital Signs: BP: 137/91 Pulse: 95 Resp: 16 Temp: 02 Sat: 95 ECG Mon: 4. Pain Intensity: 7 5. Fall Risk: Dizziness: N Needs help standing or walking: N Fallen in the last 3 months: N Fall risk comments: 6. Patient on Blood Thinner: None 7. History of Hypertension: Y 8. Opioid Therapy greater than 6 weeks: Y Opiate Contract Signed: 06/19/17 9. Risk Assessment Tool Provided: mod-5 10. Functional Assessment Tool: 11. Recreational Drug Use: Past greater than 3 mos Drug Type: Tobacco Use: Former Smoker Tobacco Type: Amount or Packs/day: How Many Years: Alcohol Use: Past use Frequency: Quant:
== END ==
LOC: PAIN 06:39
DX: M17.0 Bilateral primary osteoarthritis of knee (principal); M87.059 Idiopathic aseptic necrosis of unspecified femur; F32.9 Major depressive disorder, single episode, unspecified; F41.9 Anxiety disorder, unspecified; Z79.899 Other long term (current) drug therapy; I10 Essential (primary) hypertension; Z79.891 Long term (current) use of opiate analgesic

== ENCOUNTER → 2019-06-08 | Outpatient (CLI) | payer OTHER ==
[~2019-06-08] VITALS: Ht 167.6 cm; Wt 80.8 kg
[~2019-06-08] MED LIST changes: +VASCEPA1 GM PO
--- NOTE | ~2019-06-08 | HPC ---
[facility] [place] [address] [place] [address] PAIN MANAGEMENT CONSULTATION Name: FREDERIC CA Room #: REG NIYAH Vitale.#: [id number] Admission: 06/08/19 Attend Phys: Angela Cardoza MD Discharge: Date of : 74 Report #: [id number] THIS REPORT FOR: //name// CC: Sheridan Cardoza DATE OF SERVICE: 06/08/2019 CHIEF COMPLAINT: Here for medication renewal and I am scheduled to have a conference with the physician from [place]. HISTORY: The patient is a 48-year-old female who has been followed in the Pain Clinic because of chronic pain. As you may recall, she has bilateral knee pain thought to be secondary to avascular necrosis. She has been treated in the [facility]. She has recently gone to [place] to see a specialist. The specialists has come up with some ideas for treatment. The patient and her feel somewhat encouraged that there might be something that can be done to help her with her current situation. She has returned today for renewal of her medications. She is scheduled to interview with the physician from [place] on 06/17/2019, by [place]. ALLERGIES: No known drug allergies. CURRENT MEDICATIONS: OxyIR up to 4 times daily, Hysingla 40 mg, amitriptyline 125 mg, meloxicam 15 mg, omeprazole 40 mg, losartan 25 mg, vitamin C, magnesium, melatonin, vitamin D, Xanax p.r.n., bupropion 150 mg b.i.d., Neurontin 600 mg b.i.d. Pain CLINIC ASSESSMENT/PQRS: 1. The patient has osteoarthritic changes in her knees bilaterally. She is not being treated for rheumatoid arthritis. 2. Height 5 feet 6 inches, weight 178 pounds, BMI is 28.8. 3. Vital signs: Blood pressure 120/80, heart rate is 102, respiratory rate 14, room air saturations 100%. 4. Pain intensity, 4/10. 5. Fall history: The patient has not fallen in the last 3 months. 6. Blood thinner. The patient is not on a blood thinning medication. 7. Hypertension. The patient is being treated for hypertension. 8. Opioids greater than 6 weeks. The patient receives medication from one source, the Pain Clinic. 9. Risk assessment tool, moderate/5. 10. Functional assessment tool 42/70. 11. Recreational drug use. The patient denies use of recreational drugs. 12. Tobacco: The patient is a former smoker. 13. Alcohol: The patient [place] [address] PAIN MANAGEMENT CONSULTATION Name: FREDERIC CA Room #: REG [facility]#: [id number] Admission: 06/08/19 Attend Phys: Angela Cardoza MD Discharge: Date of : 74 Report #: [id number] PHYSICAL EXAMINATION: GENERAL: The patient is a well-developed, well-nourished white female. Appears her stated age. She is alert and oriented x 3. Affect is appropriate. Speech is fluent. HEENT: Normocephalic, atraumatic. Extraocular eye muscles intact. Sclerae nonicteric. The patient is wearing glasses. HEART: Regular rate. S1, S2. LUNGS: Clear to auscultation without rhonchi or rales. ABDOMEN: Nontender. Bowel sounds present. EXTREMITIES: Upper extremity muscle strength is judged to be 5/5 for the major muscle groups in the upper extremity. Lower extremity, the patient has pain in her knees bilaterally. Rates it as a 4/10 today. Movement somewhat decreased because of the pain, increases with prolonged standing. ASSESSMENT: 1. Chronic pain, status post stem cell replacement at [place]. 2. Avascular necrosis of the knees. 3. Depression. 4. Anxiety. 5. New items are options being suggested by her physician. RECOMMENDATIONS: A script for her medications of oxycodone 10 mg 1 p.o. q.i.d., a total of 135 tablets have been written. The patient will continue with the Hysingla/hydrocodone slow release 40 mg dosage once daily, amitriptyline 125 mg total with a 25 mg tablet and 100 mg tablets of Elavil at bedtime. She also will continue with the meloxicam. She will call us if she has any concerns. We would like to thank you for letting us participate in her care. We hope she continues to improve. By: [id number] Angela Cardoza MD /nt
[2019-06-08 08:34] VITALS: BP 120/80
--- NOTE | 2019-06-08 08:49 | NUR ---
Pain Clinic Assessment: 1. History of Osteoarthritis: YES History of Rheumatoid Arthritis: Not Applicable 2. Height: 5 ft. 6 in. 167.6 cm. Weight: 178.2 lb. oz. 80.831 kg. Patient's BMI: 28.8 3. Vital Signs: BP: 120/80 Pulse: 102 Resp: 14 Temp: 02 Sat: 100 ECG Mon: 4. Pain Intensity: 4 5. Fall Risk: Dizziness: Y Needs help standing or walking: N Fallen in the last 3 months: N Fall risk comments: 6. Patient on Blood Thinner: None 7. History of Hypertension: Y 8. Opioid Therapy greater than 6 weeks: Y Opiate Contract Signed: 06/19/17 9. Risk Assessment Tool Provided: mod-5 10. Functional Assessment Tool: 11. Recreational Drug Use: Past greater than 3 mos Drug Type: Tobacco Use: Former Smoker Tobacco Type: Amount or Packs/day: How Many Years: Alcohol Use: Past use Frequency: Quant:
== END ==
LOC: PAIN 06-03 06:38
DX: G89.29 Other chronic pain (principal); F32.9 Major depressive disorder, single episode, unspecified; F41.9 Anxiety disorder, unspecified; Z79.899 Other long term (current) drug therapy

== ENCOUNTER → 2019-07-06 | Outpatient (CLI) | payer OTHER ==
[~2019-07-06] VITALS: Ht 167.6 cm; Wt 81.9 kg
[~2019-07-06] MED LIST changes: +LIPITOR40 MG PO; +XARELTO15 MG PO
[2019-07-06 08:36] VITALS: BP 144/98
--- NOTE | 2019-07-06 08:56 | NUR ---
Pain Clinic Assessment: 1. History of Osteoarthritis: KNEES History of Rheumatoid Arthritis: Not Applicable 2. Height: 5 ft. 6 in. 167.6 cm. Weight: 180.6 lb. oz. 81.920 kg. Patient's BMI: 29.2 3. Vital Signs: BP: 144/98 Pulse: 90 Resp: 16 Temp: 02 Sat: 97 ECG Mon: 4. Pain Intensity: 5 5. Fall Risk: Dizziness: N Needs help standing or walking: N Fallen in the last 3 months: N Fall risk comments: 6. Patient on Blood Thinner: XERALTO 7. History of Hypertension: Y 8. Opioid Therapy greater than 6 weeks: Y Opiate Contract Signed: 06/19/17 9. Risk Assessment Tool Provided: mod-5Y 10. Functional Assessment Tool: 11. Recreational Drug Use: Past greater than 3 mos Drug Type: Tobacco Use: Former Smoker Tobacco Type: Amount or Packs/day: How Many Years: Alcohol Use: Past use Frequency: Quant:
--- NOTE | 2019-07-07 13:25 | HPC ---
[facility] [address] [place] [address] PAIN MANAGEMENT CONSULTATION Name: FREDERIC CA Room #: REG [facility] Winifred.#: [id number] Admission: 07/06/19 ������������������ Attend Phys: Radha Sorensen Discharge: ������������������ Date of : 74 Report #: [id number] THIS REPORT FOR: //name// CC: Radha Singhdy Foreignrenzo DATE OF SERVICE: 07/06/2019 CHIEF COMPLAINT: Bilateral knee pain secondary to avascular necrosis. HISTORY OF PRESENT ILLNESS: This is a very pleasant 48-year-old female who returns to the pain clinic today for a refill of her medications. She does report a pain score of 5/10 today, again in her bilateral knees. It is a throbbing pain, worse with standing. Her medications are helpful and as well as staying off of her feet. The patient did see her doctor from [place] via telephone conference and was told that she has factor V Leiden mutation and was started on Xarelto 15 mg b.i.d. as well as Lipitor 40 mg daily. She is to continue this medication regimen for several months and hope that they will dissolve some clots that are affecting her knee pain and hopefully, her pain will be decreased. The patient is very encouraged by this and hopeful. She has been on her medicine for 13 days currently. The patient is reporting that she is not sleeping as well. She does have panic attacks and has had her bupropion increased as well and has not been able to have her alprazolam filled the last week. She is wondering about a change in her amitriptyline to help her sleep and wondering if we would be willing to write her alprazolam. CURRENT ALLERGIES: No known drug allergies. CURRENT LIST OF MEDICATIONS: Xarelto 15 mg b.i.d., Lipitor 40 mg daily, oxycodone IR 4-1/2 tablets a day, Hysingla 40 mg daily, amitriptyline 125 mg, Vascepa, omeprazole, Cozaar, vitamin C, Mag-Ox, melatonin, vitamin D, bupropion 300 mg b.i.d., gabapentin 300 mg b.i.d., and Xanax 0.5 two times a day. PQRS: 1. She has arthritic changes in her knees bilaterally. She is not being treated for rheumatoid arthritis. 2. Height is 5 feet 6 inches, weight is 180, BMI is 29. 3. Vital signs 144/98, pulse is 90, respirations 16, oxygen sat is 97. 4. Pain score is 5/10. 5. Denies dizziness, does not need help walking or standing, has not fallen in the last 3 months. 6. The patient is on Xarelto and [place] [address] PAIN MANAGEMENT CONSULTATION Name: FREDERIC CA KAREN Room #: REG NIYAH Mazariegos#: [id number] Admission: 07/06/19 ������������������ Attend Phys: Radha Sorensen Discharge: ������������������ Date of : 74 Report #: [id number] 7. Opiate therapy is greater than 6 weeks; therefore, an opioid signed contract is on the chart. Risk assessment is moderate. Functional assessment is 42/70. 8. Recreational drug use in the past: She is a former smoker and has had alcohol use in the past, none currently. According to the prescription monitoring system, the patient is filling appropriately for her medications and is due for those medicines this week. We will check a random drug screen on this patient as well in the next visit. PHYSICAL EXAMINATION: GENERAL: This is a well-developed, well-nourished female who appears her stated age, placing her current pain score today at 5/10. Her affect is appropriate and her speech is fluent. HEENT: Normocephalic, atraumatic. Extraocular eye muscles are intact. HEART: Regular rate. LUNGS: Clear to auscultation without rhonchi. EXTREMITIES: Upper extremity strength judged to be 5/5 in all major muscle groups. She complains of tenderness in her bilateral knees. This is increased with prolonged standing. Her lower extremity strength judged to be 5/5. ASSESSMENT: 1. Chronic pain, status post stem cell replacement at [place]. 2. Avascular necrosis of the bilateral knees. 3. Factor V Leiden mutation. 4. Depression. 5. Anxiety. 6. Complex medical management under terms of written opioid agreement. We reviewed the fact that opiate medications are being used to provide analgesia adequate to support activities of daily living, not attempting to achieve a specific pain score on the 0-10 Visual Analog Scale. The current opiate medications are providing sufficient analgesia to allow the patient to participate in activities of daily living. The patient is not exhibiting any aberrant behavior suggestive of drug diversion. The patient is not having any adverse reactions to medications. The patient is not suffering from daytime somnolence or mental acuity changes. The patient is managing opiate-induced constipation with appropriate [id number] agents and dietary considerations. The patient was counseled on concern for caution with operating a motor vehicle while using opiate medications. A physical exam was performed and the patient's functional status was evaluated. All patients with back pain were advised against the bed rest greater than 4 days and were advised to return to normal activities. Pain score assessment was noted and the treatment plan was reviewed with the patient. All current medications, both prescribed and OTC were reviewed and reconciled on the electronic medical record. Tobacco screening was accomplished and smoking [facility] [address] [place] [address] PAIN MANAGEMENT CONSULTATION Name: FREDERIC CA Room #: REG [facility]..#: [id number] Admission: 07/06/19 ������������������ Attend Phys: Radha Sorensen Discharge: ������������������ Date of : 74 Report #: [id number] cessation was advised when indicated. BMI was noted and diet/exercise modification was recommended for all patients following outside normal parameters. I reviewed with the patient today their responsibilities to safeguard prescription medications, reviewed their responsibility to utilize medications only as prescribed by the physician. They are to seek and receive pain medications only from 1 physician group ( [facility]). They are to use 1 pharmacy and keep the clinic informed if they change pharmacies. Their responsibilities include making followup visits in a timely fashion and to avoid abrupt discontinuation of medication usage. Their responsibilities further include bringing their medications (bottles from the pharmacy with residual pills) to the visit for possible confirmation of pill counts and the patient understands it is their responsibility to submit to random drug screens to ensure both that the medications prescribed are present, and that no other controlled substances are present. All prescriptions provided today were generated electronically. PLAN: 1. We discussed treatment options with the patient today. We reminded the patient since now she is on a blood thinner, she is not to take any nonsteroidal anti-inflammatories, so we will no longer be prescribing her meloxicam, which she had already stopped, but we reminded her not to take ibuprofen, Aleve, naproxen, any [id number] anti-inflammatories as well. The patient verbalizes understanding. 2. I explained to the patient that we are not able to take over writing her alprazolam that needs to come from her doctor that has been continuing to write for this. Since they have not been returning her phone calls, I encouraged her to go by the office today to see if she was able to get a prescription. 3. The patient does complain that she has not been sleeping as well. I consulted with Dr. Cardoza. He encouraged her to take Elavil 150 mg, which is a slight increase, to try this for 2-3 weeks. If this is still not helpful, we will rotate the patient to Remeron 7.5 mg at bedtime with the possibility of increasing to 15 mg. No scripts needed for her increase in amitriptyline today due to the patient having significant amount at home. 4. Scripts given for Hysingla 40 mg, #30 and OxyIR 10 mg, #135. 5. The patient is seen in collaboration with Dr. Ralph Cardoza today. The patient will return in 1 month. ��������������������������������������������� <ELECTRONICALLY SIGNED> ���������������������������������������� By: Radha Sorensen ��������������������������������������������� 07/07/19 1325 [id number] Radha Sorensen /nt
== END ==
LOC: PAIN 06:48
DX: M25.562 Pain in left knee (principal); M25.561 Pain in right knee; F32.9 Major depressive disorder, single episode, unspecified; F41.9 Anxiety disorder, unspecified; G89.29 Other chronic pain; D68.51 Activated protein C resistance; Z79.899 Other long term (current) drug therapy; Z79.891 Long term (current) use of opiate analgesic

== ENCOUNTER → 2019-08-03 | Outpatient (CLI) | payer OTHER ==
[~2019-08-03] VITALS: Ht 167.6 cm; Wt 83.9 kg
[~2019-08-03] MED LIST changes: +AMITRIPTYLINE150 MG PO; +NARCAN4 MG NARES; +XARELTO20 MG PO
[2019-08-03 08:22] VITALS: BP 141/88
--- NOTE | 2019-08-03 08:38 | NUR ---
Pain Clinic Assessment: 1. History of Osteoarthritis: PILAR MORTENSEN SAYS NONE IN KNEES History of Rheumatoid Arthritis: Not Applicable 2. Height: 5 ft. 6 in. 167.6 cm. Weight: 185.0 lb. oz. 83.916 kg. Patient's BMI: 29.9 3. Vital Signs: BP: 141/88 Pulse: 104 Resp: 16 Temp: 02 Sat: 97 ECG Mon: 4. Pain Intensity: 5 5. Fall Risk: Dizziness: N Needs help standing or walking: N Fallen in the last 3 months: N Fall risk comments: 6. Patient on Blood Thinner: XERALTO 7. History of Hypertension: Y 8. Opioid Therapy greater than 6 weeks: Y Opiate Contract Signed: 06/19/17 9. Risk Assessment Tool Provided: mod-5Y 10. Functional Assessment Tool: 11. Recreational Drug Use: Never Drug Type: Tobacco Use: Current Every Day Smoker Tobacco Type: E-Cigarettes Amount or Packs/day: 1/2 PACK How Many Years: Alcohol Use: No Frequency: Quant:
--- NOTE | 2019-09-12 19:25 | HPC ---
[facility] [place] [address] PAIN MANAGEMENT CONSULTATION Name: FREDERIC CA Room #: REG NIYAH Delilah#: [id number] Admission: 08/03/19 Attend Phys: Angela Cardoza MD Discharge: Date of : 74 Report #: [id number] THIS REPORT FOR: //name// CC: Sheridan Cardoza DATE OF SERVICE: 08/03/2019 CHIEF COMPLAINT: Here for evaluation. HISTORY: The patient is a 48-year-old female who has been followed in the pain clinic because of chronic pain. She has chronic knee pain. She has been found to have avascular necrosis of the knees. She has been seen at the [facility]. She is also being followed by a specialist in [place]. She feels that her pain overall is a little bit better, but not moving at the rate that she would like. She feels that the current medical regimen is helpful. She is able to stay gainfully employed. She does do a lot of walking and standing at her job. She has returned today for renewal of her medications. She rates her pain as a 5/10. Finds that her left leg is most uncomfortable today. ALLERGIES: No known drug allergies. CURRENT MEDICATIONS: Xarelto 20 mg, amitriptyline 100 mg total of 150 mg daily, Lipitor 40 mg, OxyIR 10 mg tablets q.i.d., hydrocodone/Hysingla ER 40 mg daily, omeprazole 40 mg, losartan 25 mg, ascorbic acid 100 mg, magnesium 400 mg, vitamin D 1000 mg, Xanax 0.5 mg b.i.d. p.r.n., bupropion SR 150 mg b.i.d., and gabapentin 600 mg b.i.d. PAIN CLINIC ASSESSMENT AND PQRS: 1. The patient has pain in her knees. She is not being treated for rheumatoid arthritis. 2. Height 5 feet 6 inches, weight 185 pounds, BMI is 29.9. 3. Vital signs: Blood pressure 141/88, pulse 104, respiratory rate 16, and room air saturation 97%. 4. Pain intensity 5/10. 5. Fall history: The patient has not fallen in the last 3 months. 6. Blood thinner. The patient is on Xarelto. 7. Hypotension. The patient is being treated for hypertension. 8. Opioids greater than 6 weeks. The patient received medication from one source the pain clinic. 9. Risks assessment tool 5/moderate. 10. Functional assessment tool 42/70. 11. Recreational drug use: The patient denies. 12. Tobacco: The patient does smoke E-cigarettes/vapes. 13. History of one-half pack of cigarettes for many years. 14. Alcohol. The patient denies. [address] [address] PAIN MANAGEMENT CONSULTATION Name: FREDERIC CA Room #: [facility]alia[facility]ul[facility] [id number] Admission: 08/03/19 Attend Phys: Angela Cardoza MD Discharge: Date of : 74 Report #: [id number] PHYSICAL EXAMINATION: GENERAL: The patient is a well-developed, well-nourished white female. Appears her stated age. She is alert and oriented x 3. Her affect is appropriate. Speech is fluent. She is unaccompanied. HEENT: Normocephalic, atraumatic. Extraocular eye muscles intact. Sclerae nonicteric. Mucous membranes are moist. NECK: Without adenopathy or JVD. HEART: Regular rate. S1, S2. LUNGS: Clear to auscultation without rales or rhonchi. ABDOMEN: Nontender. EXTREMITIES: Upper extremity muscle strength judged to be 5/5 for the major muscle groups in the upper extremity. The patient has pain and discomfort in her knees bilaterally. Notes that movement and prolonged standing exacerbates her discomfort. IMPRESSION: 1. Chronic knee pain, status post stem cell replacement at [place]. 2. History of avascular necrosis of the knees. 3. Depression. 4. Anxiety. RECOMMENDATIONS: We discussed treatment options with the patient. At this juncture, we will continue with her medications. We have rewritten her medications. She feels that the medications are helpful. She is aware that opioid medications can become less effective over time because of the tolerance, which could develop. She is keeping her medications in a guarded area. Overall, she feels that the Mobic medicine, amitriptyline and her other medications all come together to help with her pain control. She will follow up in the near future. She continues to work. We would like to thank you for letting us participate in her care. A script for her medications of hydrocodone/Hysingla ER 40 mg has been rewritten. She will continue with naloxone spray at home for emergencies. She will continue with OxyIR 10 mg 1 p.o. q.i.d. She will also continue with amitriptyline to help with pain as well as help augment sleep. <ELECTRONICALLY SIGNED> By: Angela Cardoza MD 09/12/19 1925 [id number] Alberto Cardoza MD /nt
== END ==
LOC: PAIN 06:56
DX: G89.29 Other chronic pain (principal); M25.561 Pain in right knee; M25.562 Pain in left knee; F32.9 Major depressive disorder, single episode, unspecified; F41.9 Anxiety disorder, unspecified; Z79.899 Other long term (current) drug therapy

== ENCOUNTER → 2019-09-02 | Outpatient (CLI) | payer OTHER ==
[~2019-09-02] VITALS: Ht 167.6 cm; Wt 81.6 kg
[2019-09-02 14:10] VITALS: BP 149/95
--- NOTE | 2019-09-02 14:13 | NUR ---
Pain Clinic Assessment: 1. History of Osteoarthritis: PILAR MORTENSEN SAYS NONE IN KNEES History of Rheumatoid Arthritis: DENIES 2. Height: 5 ft. 6 in. 167.6 cm. Weight: 180.0 lb. oz. 81.648 kg. Patient's BMI: 29.1 3. Vital Signs: BP: 149/95 Pulse: 110 Resp: 16 Temp: 02 Sat: 95 ECG Mon: 4. Pain Intensity: 3 5. Fall Risk: Dizziness: N Needs help standing or walking: N Fallen in the last 3 months: N Fall risk comments: 6. Patient on Blood Thinner: XERALTO 7. History of Hypertension: Y 8. Opioid Therapy greater than 6 weeks: Y Opiate Contract Signed: 06/19/17 9. Risk Assessment Tool Provided: mod-5Y 10. Functional Assessment Tool: 11. Recreational Drug Use: Never Drug Type: Tobacco Use: Former Smoker Tobacco Type: Amount or Packs/day: How Many Years: Alcohol Use: No Frequency: Quant:
--- NOTE | 2019-09-12 19:26 | HPC ---
[facility] [place] [address] PAIN MANAGEMENT CONSULTATION Name: FREDERIC CA Room #: REG NIYAH MominEulaliaMaryEulalia#: [id number] Admission: 09/02/19 Attend Phys: Angela Cardoza MD Discharge: Date of : 74 Report #: [id number] THIS REPORT FOR: //name// CC: Sheridan Cardoza DATE OF SERVICE: 09/02/2019 CHIEF COMPLAINT: Here for evaluation. HISTORY: The patient is a 48-year-old female who has been followed in the pain clinic. As you recall, she has a complicated history. She has been to the [facility]. She was found to have what appeared to be avascular necrosis involving her knees. She is being followed by a specialist in [place]. It is felt that there might be some blood clotting issues in her knees. She is being treated with Xarelto. She feels that her medications continued to be helpful. Again, they are not as helpful as she would like, but they do help decrease her pain and discomfort. She rates her pain today as a 3/10. She notes that walking, standing, and other activities can exacerbate her pain. Does work for the [employer]. There is quite a bit of walking involved in her job. She has returned today with the hopes of having a renewal of her medication. She has had no complications from their use. ALLERGIES: No known drug allergies. CURRENT MEDICATIONS: OxyIR 4 times daily, Hysingla 40 mg, amitriptyline 150 mg, Meloxicam 15 mg, omeprazole 40 mg, losartan 25 mg, vitamin C, magnesium, melatonin, vitamin D, Xanax, bupropion 150 mg, Neurontin 600 mg b.i.d., and Xarelto 20 mg daily. PAIN CLINIC ASSESSMENT/PQRS: 1. History of osteoarthritis with changes in her knees bilaterally. 2. Rheumatoid arthritis. The patient is not being treated for rheumatoid arthritis. 3. Height 5 feet 6 inches, weight 180 pounds, BMI is 29.1. 4. Vital signs: Blood pressure 149/95, pulse 110, respiratory rate 16, room air saturation is 95%. 5. Pain intensity 01/02. 6. Fall history: The patient has not fallen in the last 3 months. 7. Blood thinner. The patient is on a blood thinning medication, Xarelto. 8. Hypertension. The patient is being treated for hypertension. 9. Opioids greater than 6 weeks. The patient received medication from one source, pain clinic. 10. Risk assessment tool felt to be 5/moderate for opioid use. 11. Functional assessment tool 42/70. [place] [address] PAIN MANAGEMENT CONSULTATION Name: FREDERIC CA KAREN Room #: REG CL Winifred.#: [id number] Admission: 09/02/19 Attend Phys: Angela Cardoza MD Discharge: Date of : 74 Report #: [id number] 12. Recreational drug use: The patient denies. 13. Tobacco: The patient is a former smoker, does vaping at this juncture. Has smoked one-half pack of cigarettes per day in the past. 14. Alcohol. The patient denies frequent use of alcoholic beverages. PHYSICAL EXAMINATION: GENERAL: The patient is a well-developed, well-nourished white female. Appears her stated age. She is alert and oriented x 3. Her affect is appropriate. Speech is fluent. HEENT: Normocephalic, atraumatic. Extraocular eye muscles intact. Sclerae nonicteric. Mucous membranes are moist. NECK: Without adenopathy or JVD. HEART: Regular rate. LUNGS: Clear, without rhonchi. ABDOMEN: Nontender. Bowel sounds present. EXTREMITIES: Upper extremity muscle strength judged to be 5/5 for the major muscle groups in the upper extremity. Lower extremity muscle strength judged to be 5-/5 for the major muscle groups. The patient has pain and discomfort in this area secondary to chronic knee pain. Notes increased pain with prolonged standing. ASSESSMENT: 1. Chronic pain, status post stem cell replacement at [place]. 2. Avascular necrosis of the knees. 3. Use of Xarelto to help with the avascular necrosis per her physician in [place]. 4. Depression. 5. Anxiety. RECOMMENDATIONS: We discussed treatment options with the patient. At this juncture, we will continue with her current medical regimen. She feels that the medications are helpful. We have rewritten her medications. She will continue with the Hysingla ER 40 mg 1 p.o. daily. She also will continue with naloxone at home p.r.n. for emergency use. The patient will continue with OxyIR ____ daily to max 1 tablet q.4-6 hours p.r.n., and amitriptyline 150 mg daily. The patient will call us if she has any concerns. We would like to thank you for letting us participate in her care. We hope she continues to improve. <ELECTRONICALLY SIGNED> By: Angela Cardoza MD 09/12/19 1926 [id number] Angela Cardoza MD /PMT
== END ==
LOC: PAIN 08-31 06:48
DX: Z09 Encounter for follow-up examination after completed treatment for conditions other than malignant neoplasm (principal); G89.29 Other chronic pain; F41.9 Anxiety disorder, unspecified; F32.9 Major depressive disorder, single episode, unspecified

== ENCOUNTER → 2019-09-30 | Outpatient (CLI) | payer OTHER ==
[~2019-09-30] VITALS: Ht 165.1 cm; Wt 83.7 kg
[2019-09-30 08:31] VITALS: BP 149/83
--- NOTE | 2019-09-30 08:35 | NUR ---
Pain Clinic Assessment: 1. History of Osteoarthritis: PILAR MORTENSEN SAYS NONE IN KNEES History of Rheumatoid Arthritis: DENIES 2. Height: 5 ft. 5 in. 165.1 cm. Weight: 184.6 lb. oz. 83.734 kg. Patient's BMI: 30.7 3. Vital Signs: BP: 149/83 Pulse: 99 Resp: 16 Temp: 02 Sat: 98 ECG Mon: 4. Pain Intensity: 8-9 5. Fall Risk: Dizziness: N Needs help standing or walking: N Fallen in the last 3 months: N Fall risk comments: 6. Patient on Blood Thinner: XERALTO 7. History of Hypertension: Y 8. Opioid Therapy greater than 6 weeks: Y Opiate Contract Signed: 06/19/17 9. Risk Assessment Tool Provided: mod-5 10. Functional Assessment Tool: 11. Recreational Drug Use: Never Drug Type: Tobacco Use: Former Smoker Tobacco Type: Cigarettes Amount or Packs/day: 1 PPD How Many Years: 25 Alcohol Use: No Frequency: Quant:
--- NOTE | 2019-10-25 14:24 | HPC ---
[facility] [place] [place] [address] PAIN MANAGEMENT CONSULTATION Name: FREDERIC CA Room #: REG NIYAH LonMary.#: [id number] Admission: 09/30/19 Attend Phys: Angela Cardoza MD Discharge: Date of : 74 Report #: [id number] THIS REPORT FOR: //name// CC: Sheridan Cardoza DATE OF SERVICE: 09/30/2019 CHIEF COMPLAINT: Here for medications. HISTORY: The patient is a 49-year-old female who has been followed in the Pain Clinic. She has a history of chronic pain. Follow up in the [facility] indicated some possibility of avascular necrosis process is ongoing. This involves her knee. She also states it involves her hip. She has been placed on an anticlotting agent by a specialist in [place]. The hope is that the Xarelto would decrease the problem. She thought that there might be development of some blood clotting affecting the vasculature of the knee. She rates her pain today as an 8-9. Weather has changed. It has made walking more problematic and bit more difficult. ALLERGIES: No known drug allergies. CURRENT MEDICATIONS: OxyIR 10 mg 4 times daily, Hysingla 40 mg, amitriptyline 150 mg, meloxicam 15 mg, omeprazole 40 mg, losartan 25 mg, vitamin C, magnesium, melatonin, vitamin D, Xanax, bupropion 150 mg, Neurontin 600 mg b.i.d., and Xarelto 20 mg daily. PAIN CLINIC ASSESSMENT/PQRS: 1. The patient does have some arthritic changes involving her knees. She states that she is having some discomfort in her hips as well. The patient is not being treated for rheumatoid arthritis. 2. Height 5 feet 6 inches, weight 184 pounds, BMI 30, blood pressure 149/83, pulse 99, respiratory rate 16, room air saturation 98%. 3. Pain intensity 7-8/10. 4. Fall history: The patient has not fallen in the last 3 months. 5. Blood thinner. The patient is on Xarelto. 6. Hypertension. The patient is being treated for hypertension. 7. Opioids greater than 6 weeks. The patient received medication from [facility]. 8. Risk assessment tool, moderate for opioid use. 9. Functional assessment tool 42/. 10. Recreational drug use: The patient denies. 11. Tobacco: The patient is a former smoker. She does vape. 12. Alcohol. The patient denies frequent use of alcoholic beverages. [address] [address] PAIN MANAGEMENT CONSULTATION Name: FERDERIC CA Room #: REG [facility]#: [id number] Admission: 09/30/19 Attend Phys: Angela Cardoza MD Discharge: Date of : 74 Report #: [id number] PHYSICAL EXAMINATION: GENERAL: The patient is a well-developed, well-nourished white female. Appears her stated age. She is alert and oriented x 3. Her affect is appropriate. Speech is fluent. HEENT: Normocephalic, atraumatic. Extraocular eye muscles intact. Sclerae nonicteric. Mucous membranes are moist. NECK: Without adenopathy or JVD. HEART: Regular rate. LUNGS: Clear to auscultation. ABDOMEN: Nontender. Bowel sounds present. EXTREMITIES: Upper extremity muscle strength judged to be 5/5 for the major muscle groups in the upper extremity. Lower extremity muscle strength judged to be 5-/5. The patient complains of pain and discomfort in her knees, left and right. Also, complains of some pain and discomfort in her hips. The left hip is more problematic than the right. IMPRESSION: 1. Chronic pain, status post stem cell replacement at [place]. 2. Thought of avascular necrosis of the knees. 3. Use of Xarelto to help with the avascular necrosis prescribed by her physician in [place]. 4. Depression. 5. Anxiety. RECOMMENDATIONS: We discussed treatment options with the patient. At this juncture, we will continue with her medications. It occurred to us that she was vaping. She has been using nicotine. We explained the problems with the nicotine causing vasoconstriction. We would recommend that she stop vaping with the hopes that this would continue to improve her treatment with the Xarelto. The patient has been given naloxone to keep at home for emergency. She will continue with her medications of OxyIR 10 mg q. 4-6 hours p.r.n. She will also continue with amitriptyline 150 mg daily. The patient will call us if she has any concerns. Hopefully, she will continue to improve as time goes on. We would like to thank you for letting us participate in her care. We hope she continues to improve. <ELECTRONICALLY SIGNED> By: Angela Cardoza MD 10/25/19 1424 [id number] [id number] Angela Cardoza MD /nt
== END ==
LOC: PAIN 06:49
DX: Z76.0 Encounter for issue of repeat prescription (principal); G89.29 Other chronic pain; F32.9 Major depressive disorder, single episode, unspecified; F41.9 Anxiety disorder, unspecified; Z79.891 Long term (current) use of opiate analgesic; Z79.899 Other long term (current) drug therapy

== ENCOUNTER → 2019-10-28 | Outpatient (CLI) | payer OTHER ==
[~2019-10-28] VITALS: Ht 167.6 cm; Wt 84.8 kg
--- NOTE | ~2019-10-28 | HPC ---
[facility] [address] [place] [address] PAIN MANAGEMENT CONSULTATION Name: FREDERIC CA Room #: REG NIYAH Delilah#: [id number] Admission: 10/28/19 Attend Phys: Angela Cardoza MD Discharge: Date of : 74 Report #: [id number] THIS REPORT FOR: //name// CC: Sheridan Cardoza DATE OF SERVICE: 10/28/2019 CHIEF COMPLAINT: The pain is still bad. The Medrol Dosepak helped. HISTORY: The patient is a 49-year-old female who has been followed in the pain clinic. As you may recall, she has a history of pain in her knees. It is presumed to be avascular necrosis in etiology. She has been treated with an anticoagulant Xarelto. She feels that her pain is helped with the Medrol Dosepak. She notes that her pain has somewhat controlled, has somewhat plateaued. She has spoken with her surgeon at the [facility]. There is possibility of her having to undergo the process again. She does not want to. She hopes that things will continue to improve as time goes on. She has found the use of opioid medications continue to be helpful. She is aware that opioid medications as time goes on can become less effective secondary to development of tolerance. ALLERGIES: No known drug allergies. CURRENT MEDICATIONS: OxyIR 10 mg 4 times daily, Hysingla 40 mg, amitriptyline 150 mg, meloxicam 15 mg, omeprazole 40 mg, losartan 25 mg, vitamin C, magnesium, melatonin, vitamin D, Xanax, bupropion 150 mg, Neurontin 600 mg b.i.d., Xarelto 20 mg daily. PAIN CLINIC ASSESSMENT/PQRS: 1. The patient does have some arthritic changes involving her knees. She states that she is having some discomfort in her hips as well. The patient is not being treated for rheumatoid arthritis. 2. Height 5 feet 6 inches, weight 187 pounds, BMI is 30. 3. Vital signs: Blood pressure 129/80, pulse 89, respiratory rate 18, room air saturation is 96%. 4. Pain intensity: 5-6/10. 5. Fall history: The patient has not fallen in the last 3 months. 6. Blood thinner: The patient is on Xarelto. 7. Hypertension: The patient is being treated for hypertension. 8. Opioids greater than 6 weeks: The patient received medication from [facility]. 9. Risk assessment tool: Moderate for opioid use. 10. Functional assessment tool: 42/70. 11. Recreational drug use: The patient denies. 12. The patient states that she is no longer using [place] [address] PAIN MANAGEMENT CONSULTATION Name: FREDERIC CA KAREN Room #: REG CL Delilah#: [id number] Admission: 10/28/19 Attend Phys: Angela Cardoza MD Discharge: Date of : 74 Report #: [id number] 13. Alcohol: The patient denies frequent use of alcoholic beverages. PHYSICAL EXAMINATION: GENERAL: The patient is a well-developed, well-nourished white female. She appears her stated age. She is alert and oriented x 3. Affect is appropriate. Speech is fluent. She is accompanied by her . HEENT: Normocephalic, atraumatic. Extraocular eye muscles intact. Sclerae nonicteric. The patient is wearing glasses. NECK: Without adenopathy or JVD. HEART: Regular rate. ABDOMEN: Nontender. LUNGS: Generally clear to auscultation. EXTREMITIES: Upper extremity muscle strength judged to be 5/5 for the major muscle groups in the upper extremity. The patient has some pain and discomfort in her hips bilaterally. Has some pain and discomfort in her knees. Movement is somewhat problematic. The patient notes increased pain with prolonged standing. ASSESSMENT: 1. Chronic pain status post stem cell placement at [facility]. 2. Avascular necrosis in the knees. 3. Left and right hip pain. 4. Depression. 5. Anxiety. RECOMMENDATIONS: We discussed treatment options with the patient. At this juncture, we will continue with her medications. She feels that she would like to try the Hysingla 60 mg daily. She would like to limit the amount of opioid medication that she is taking. She is aware that the use of opioid medications can become less fruitful as time goes on secondary to development of tolerance. She has taken her medication as prescribed. She has not shown any signs of addiction. She keeps her medications in a guarded area. She is hopeful that she will not have to undergo the procedure again. It involves 6-8 weeks of nonweightbearing. She was in a wheelchair. She is also under the auspices of the physician in [place]. She has monitored her regarding the avascular necrosis component of her pain. A script for a Medrol Dosepak has been provided. The patient will take this should her pain become quite problematic. She will also continue with her Xarelto. She will continue with Hysingla 60 mg daily up from 40 mg daily. Hope is that she can decrease the amount of OxyIR medication that she is taking. [address] [address] PAIN MANAGEMENT CONSULTATION Name: FREDERIC CA Room #: REG NIYAH Vitale.#: [id number] Admission: 10/28/19 Attend Phys: Angela Cardoza MD Discharge: Date of : 74 Report #: [id number] We would like to thank you for letting us participate in her care. We hope she continues to improve. By: [id number] Angela Cardoza MD /RASHARD
[2019-10-28 08:18] VITALS: BP 129/80
== END ==
LOC: PAIN 06:47
DX: G89.29 Other chronic pain (principal); M25.551 Pain in right hip; M25.552 Pain in left hip; F41.9 Anxiety disorder, unspecified; F32.9 Major depressive disorder, single episode, unspecified

== ENCOUNTER → 2019-11-25 | Outpatient (CLI) | payer OTHER ==
[~2019-11-25] VITALS: Ht 167.6 cm; Wt 85.7 kg
[2019-11-25 08:33] VITALS: BP 159/90
--- NOTE | 2019-11-25 08:38 | NUR ---
Pain Clinic Assessment: 1. History of Osteoarthritis: PILAR MORTENSEN SAYS NONE IN KNEES History of Rheumatoid Arthritis: DENIES 2. Height: 5 ft. 6 in. 167.6 cm. Weight: 189.0 lb. oz. 85.730 kg. Patient's BMI: 30.5 3. Vital Signs: BP: 159/90 Pulse: 97 Resp: 18 Temp: 02 Sat: 99 ECG Mon: 4. Pain Intensity: 5 5. Fall Risk: Dizziness: N Needs help standing or walking: N Fallen in the last 3 months: N Fall risk comments: 6. Patient on Blood Thinner: XERALTO 7. History of Hypertension: Y 8. Opioid Therapy greater than 6 weeks: Y Opiate Contract Signed: 06/19/17 9. Risk Assessment Tool Provided: mod-5 10. Functional Assessment Tool: 11. Recreational Drug Use: Never Drug Type: Tobacco Use: Current Every Day Smoker Tobacco Type: Cigarettes Amount or Packs/day: How Many Years: Alcohol Use: No Frequency: Quant:
--- NOTE | 2019-11-28 16:09 | HPC ---
[facility] [place] [address] PAIN MANAGEMENT CONSULTATION Name: FREDERIC CA Room #: REG NIYAH Vitale.#: [id number] Admission: 11/25/19 Attend Phys: Radha Sorensen Discharge: Date of : 74 Report #: [id number] THIS REPORT FOR: cc: Sheridan White Cindy RNP Hocker, Radha MALLORY ~ THIS REPORT FOR: //name// DATE OF SERVICE: 11/25/2019 CHIEF COMPLAINT: Chronic pain as a result of avascular necrosis in her knee. HISTORY OF PRESENT ILLNESS: This is a very pleasant 49-year-old female who returns to the pain clinic today for a refill of her Hysingla that she uses to help treat her avascular necrosis in her knees. She reports that her left knee is the worst pain, though she has been trying to be more active and started walking in a resistance swimming pool. She feels that this has been beneficial. She also does experience some left hip pain, rating her pain score today at 5/10. It is an achy, sharp pain, but occasionally she does have some tingly in her thighs. She feels that the increase in her Hysingla was slightly beneficial, she is unsure at this point how beneficial, she was able to decrease her short acting medicine from 1-1/2 pills to 1 pill at a time and she has also recently stopped her gabapentin, though she reports she does have some increased pain since stopping that. ALLERGIES: No known drug allergies. CURRENT LIST OF MEDICATIONS: Hysingla 60 mg daily, OxyIR 10 mg q.i.d., amitriptyline 150 mg at bedtime, Narcan as needed, Xarelto 20 mg daily, Lipitor, Vascepa, omeprazole, vitamin C, Mag-Ox, melatonin, vitamin D, alprazolam p.r.n., and bupropion. PQRS: 1. She does have arthritic changes involving her knees and hips. Denies any rheumatoid arthritis. 2. Height is 5 feet 6 inches, weight is 189, BMI is 30. 3. Vital signs 159/90, pulse is 97, respirations 18, oxygen sat is 99. 4. Pain score is 5/10. 5. Denies dizziness, does not need help walking, has not fallen in the last 3 months. The patient is on Xarelto as well as taking medicines for hypertension. 6. Her opioid therapy is greater than 6 weeks; therefore, an opioid signed contract is on the chart. Risk assessment is moderate. Functional assessment is 42/70. 7. Recreational drug use, she denies. She is a current smoker and does not drink alcohol. [address] [address] PAIN MANAGEMENT CONSULTATION Name: ROBYFREDERIC KAREN Room #: REG NIYAH Mazariegos#: [id number] Admission: 11/25/19 Attend Phys: Radha Sorensen Discharge: Date of : 74 Report #: [id number] According to the prescription monitoring system, the patient is filling appropriately for her medications. She is due to fill those early next week. Her morphine mEq per day is 120, therefore she does have a prescription of Narcan that is available in case of an emergency though we do not forsee this patient of having issues with an overdose. PHYSICAL EXAMINATION: GENERAL: This is a well-developed, well-nourished white female who appears her stated age. She is alert and orientated. Her pain score today she rates as 5/10. HEENT: Normocephalic, atraumatic. Extraocular eye muscles are intact. She is wearing glasses. NECK: Without adenopathy or JVD. MUSCULOSKELETAL: The patient has discomfort in her knees bilaterally, greater on the left than the right, complains of numbness and tingling in her bilateral thighs, movement increases her pain. Lower extremity strength judged to be 5/5 in all major muscle groups. ASSESSMENT: 1. Chronic pain, status post stem cell placement at [place]. 2. Avascular necrosis in her bilateral knees. 3. Bilateral hip pain. 4. Depression. 5. Anxiety. We reviewed the fact that opiate medications are being used to provide analgesia adequate to support activities of daily living, not attempting to achieve a specific pain score on the 0-10 Visual Analog Scale. The current opiate medications are providing sufficient analgesia to allow the patient to participate in activities of daily living. The patient is not exhibiting any aberrant behavior suggestive of drug diversion. The patient is not having any adverse reactions to medications. The patient is not suffering from daytime somnolence or mental acuity changes. The patient is managing opiate-induced constipation with appropriate vsgn-sus-wgglonu agents and dietary considerations. The patient was counseled on concern for caution with operating a motor vehicle while using opiate medications. PLAN: 1. We discussed treatment options with the patient today. The patient is unsure how much pain relief she received from increasing Hysingla from 40 to 60 mg. We will trial this 1 more month. If she does not notice any significant improvement in her pain, we will decrease her back to 40 mg of Hysingla and we discussed lowest most effective dose. We will rewrite that medicine for 1 month today. 2. The patient has been able to decrease her OxyIR to 4 tablets a day, down [address] [address] PAIN MANAGEMENT CONSULTATION Name: FREDERIC CA Room #: REG [facility]#: [id number] Admission: 11/25/19 Attend Phys: Radha Sorensen Discharge: Date of : 74 Report #: [id number] from . We will write a prescription for 120 pills for this medication. 3. The patient reports that she recently stopped her gabapentin though she has been complaining of some numbness and tingling in her bilateral thighs. We encouraged her to restart 1 gabapentin in the morning. If this is beneficial in decreasing that feeling, she is to continue it; if it does make no difference, she may continue to 2 a day. If again no difference, then she may stop this medicine altogether. The patient verbalizes understanding. 4. The patient will return in 1 month for an appointment. The patient denies any problems with constipation or daytime sleepiness from her medicines. <ELECTRONICALLY SIGNED> By: Radha Sorensen 11/28/19 1609 [id number] [id number] Radha Sorensen /niya
== END ==
LOC: PAIN 06:45
DX: G89.4 Chronic pain syndrome (principal); M25.552 Pain in left hip; M25.551 Pain in right hip; F41.9 Anxiety disorder, unspecified; F32.9 Major depressive disorder, single episode, unspecified; Z79.891 Long term (current) use of opiate analgesic

== ENCOUNTER → 2019-12-23 | Outpatient (CLI) | payer OTHER ==
[~2019-12-23] VITALS: Ht 167.6 cm; Wt 84.0 kg
[~2019-12-23] MED LIST changes: +FLEXERIL PO
[2019-12-23 08:37] VITALS: BP 134/87
--- NOTE | 2019-12-23 08:43 | NUR ---
Pain Clinic Assessment: 1. History of Osteoarthritis: KNEES History of Rheumatoid Arthritis: DENIES 2. Height: 5 ft. 6 in. 167.6 cm. Weight: 185.2 lb. oz. 84.006 kg. Patient's BMI: 29.9 3. Vital Signs: BP: 134/87 Pulse: 94 Resp: 16 Temp: 02 Sat: 97 ECG Mon: 4. Pain Intensity: 4 5. Fall Risk: Dizziness: N Needs help standing or walking: N Fallen in the last 3 months: N Fall risk comments: 6. Patient on Blood Thinner: XARELTO 7. History of Hypertension: Y 8. Opioid Therapy greater than 6 weeks: Y Opiate Contract Signed: 06/19/17 9. Risk Assessment Tool Provided: mod-5 10. Functional Assessment Tool: 11. Recreational Drug Use: Never Drug Type: Tobacco Use: Former Smoker Tobacco Type: Amount or Packs/day: How Many Years: Alcohol Use: No Frequency: Quant:
--- NOTE | 2019-12-23 10:48 | HPC ---
[facility] [address] [place] [address] PAIN MANAGEMENT CONSULTATION Name: FREDERIC CA Room #: REG Elise M.Mary.#: [id number] Admission: 12/23/19 Attend Phys: Radha Sorensen Discharge: Date of : 74 Report #: [id number] THIS REPORT FOR: cc: Sheridan White Cindy RNP Hocker,Radha MALLORY ~ DATE OF SERVICE: 12/23/2019 CHIEF COMPLAINT: Chronic pain as a result of avascular necrosis of her knee. HISTORY OF PRESENT ILLNESS: This is a pleasant 49-year-old female who returns to the pain clinic today for refill of her medications. She takes Hysingla as her baseline medication and OxyIR for her short-acting medication. Last month, we decreased this medication by half a pill a day, decreasing her monthly usage from 135-120. The patient is here requesting to go back up slightly on this medication, feels that some days she is having significant pain and needing that extra half a pill. The patient does report a pain score 4/10 today in her knees, is worse with standing and walking, especially after a day of work. She does report that she recently restarted her gabapentin and feels that has been beneficial in some nerve pain that she was experiencing in her thighs. She also reports that she has been walking in the pool 3 times a week against resistance. She feels that this has been beneficial and has actually lost 4 pounds since our last visit. Today, she would like refills of her medications. ALLERGIES: No known drug allergies. CURRENT LIST OF MEDICATIONS: Flexeril, OxyIR, Hysingla 60, Elavil, Xarelto, Lipitor, Vascepa, omeprazole, vitamin C, Mag-Ox, melatonin, vitamin D, alprazolam and bupropion. PQRS: 1. She has osteoarthritis in her bilateral knees. Denies rheumatoid arthritis. 2. Height is 5 feet 6 inches, weight is 185, BMI is 29. 3. Vital signs 134/87, pulse is 94, respirations 16, oxygen sat is 97. 4. Pain score is 4/10. 5. Denies dizziness, does not need any help walking or standing, has not fallen in the last 3 months. The patient is on Xarelto as well as medicines for hypertension. Opioid therapy is greater than 6 weeks; therefore, opioid signed contract is on the chart. Risk assessment tool is moderate. Functional assessment is 42/70. 6. Recreational drug use, she denies. She is not a smoker and does not drink alcohol. According to the prescription monitoring system, the patient is filling appropriately. She is not due to fill her medications for about 10 [place] [address] PAIN MANAGEMENT CONSULTATION Name: FREDERIC CA Room #: REG CLElies Mazariegos#: [id number] Admission: 12/23/19 Attend Phys: Radha Sorensen Discharge: Date of : 74 Report #: [id number] has had an issue with the pharmacy not having her medications in a timely fashion. Her current morphine mEq per day is 112. There is a recent drug screen on the chart. PHYSICAL EXAMINATION: GENERAL: This is alert and orientated, well-developed, well-nourished female who appears her stated age, placing her current pain score at 4/10. HEENT: Normocephalic, atraumatic. Extraocular eye muscles are intact. Mucous membranes are moist. She does wear glasses. MUSCULOSKELETAL: She has discomfort in her knees bilaterally, greater on the left than the right. Numbness and tingling in her bilateral thighs. Lower extremity strength judged to be 5/5 in all major muscle groups. IMPRESSION: 1. Chronic pain, status post stem cell replacement at [place]. 2. Avascular necrosis of the bilateral knees. 3. Bilateral hip pain. 4. Depression. 5. Anxiety. We reviewed the fact that opiate medications are being used to provide analgesia adequate to support activities of daily living, not attempting to achieve a specific pain score on the 0-10 Visual Analog Scale. The current opiate medications are providing sufficient analgesia to allow the patient to participate in activities of daily living. The patient is not exhibiting any aberrant behavior suggestive of drug diversion. The patient is not having any adverse reactions to medications. The patient is not suffering from daytime somnolence or mental acuity changes. The patient is managing opiate-induced constipation with appropriate enlr-qlv-bzhlhkt agents and dietary considerations. The patient was counseled on concern for caution with operating a motor vehicle while using opiate medications. A physical exam was performed and the patient's functional status was evaluated. All patients with back pain were advised against the bed rest greater than 4 days and were advised to return to normal activities. Pain score assessment was noted and the treatment plan was reviewed with the patient. All current medications, both prescribed and OTC were reviewed and reconciled on the electronic medical record. Tobacco screening was accomplished and smoking cessation was advised when indicated. BMI was noted and diet/exercise modification was recommended for all patients following outside normal parameters. I reviewed with the patient today their responsibilities to safeguard prescription medications, reviewed their responsibility to utilize medications only as prescribed by the physician. They are to seek and receive pain medications only from 1 physician group ([facility]). They are to use [address] [address] PAIN MANAGEMENT CONSULTATION Name: FREDERIC CA Room #: REG [facility]#: [id number] Admission: 12/23/19 Attend Phys: Radha Sorensen Discharge: Date of : 74 Report #: [id number] pharmacy and keep the clinic informed if they change pharmacies. Their responsibilities include making followup visits in a timely fashion and to avoid abrupt discontinuation of medication usage. Their responsibilities further include bringing their medications (bottles from the pharmacy with residual pills) to the visit for possible confirmation of pill counts and the patient understands it is their responsibility to submit to random drug screens to ensure both that the medications prescribed are present, and that no other controlled substances are present. All prescriptions provided today were generated electronically. PLAN: 1. We discussed treatment options with the patient today. The patient has been exercising, walking against resistance in the pool 3 times a week. She has decreased her weight by 4 pounds since our last visit a month ago. She reports that she does feel better after she has exercised but then later in the day, she has increased pain after working and standing on concrete. 2. Last month, we did decrease her short-actings by 15 pills a month. She is wondering if we are able to increase this slightly. After much discussion, we decided to allow her to have her OxyIR 10 mg #125. This allows her to take 5 extra pills a month for the next month and hopefully will be able to decrease this back to 120 at her next visit. She verbalizes understanding. She will work towards that goal. 3. We will refill her Hysingla ER 60 mg, #30. These were written by Dr. Ralph Cardoza who saw the patient in collaboration today. The patient will return in 1 month for an appointment. The patient denies any problems with constipation or daytime sleepiness as a result of her medications. <ELECTRONICALLY SIGNED> By: Radha Sorensen 12/23/19 1048 [id number] [id number] Radha Sorensen /nt
== END ==
LOC: PAIN 06:47
DX: G89.29 Other chronic pain (principal); M25.551 Pain in right hip; M25.552 Pain in left hip; F32.9 Major depressive disorder, single episode, unspecified; F41.9 Anxiety disorder, unspecified

== ENCOUNTER → 2020-01-18 | Outpatient (CLI) | payer OTHER ==
[~2020-01-18] VITALS: Ht 167.6 cm; Wt 83.2 kg
[~2020-01-18] MED LIST changes: +METHADONE HCL 110 M1 PO; +NEURONTIN 300M300 M2 PO
[2020-01-18 08:03] VITALS: BP 114/90
--- NOTE | 2020-01-18 08:08 | NUR ---
Pain Clinic Assessment: 1. History of Osteoarthritis: KNEES HIP History of Rheumatoid Arthritis: DENIES 2. Height: 5 ft. 6 in. 167.6 cm. Weight: 183.4 lb. oz. 83.190 kg. Patient's BMI: 29.6 3. Vital Signs: BP: 114/90 Pulse: 97 Resp: 16 Temp: 02 Sat: 97 ECG Mon: 4. Pain Intensity: 8 5. Fall Risk: Dizziness: N Needs help standing or walking: N Fallen in the last 3 months: N Fall risk comments: 6. Patient on Blood Thinner: XARELTO 7. History of Hypertension: Y 8. Opioid Therapy greater than 6 weeks: Y Opiate Contract Signed: 06/19/17 9. Risk Assessment Tool Provided: mod-5 10. Functional Assessment Tool: 11. Recreational Drug Use: Never Drug Type: Tobacco Use: Former Smoker Tobacco Type: Amount or Packs/day: How Many Years: Alcohol Use: No Frequency: Quant:
--- NOTE | 2020-01-19 09:09 | HPC ---
[facility] [place] [address] PAIN MANAGEMENT CONSULTATION Name: FREDERIC CA Room #: REG [facility] M.Mary.#: [id number] Admission: 01/18/20 Attend Phys: Radha Sorensen Discharge: Date of : 74 Report #: [id number] THIS REPORT FOR: cc: Sheridan White Cindy RNP Hocker,Radha MALLORY ~ DATE OF SERVICE: 01/18/2020 CHIEF COMPLAINT: Chronic pain as a result of avascular necrosis of her knee. HISTORY OF PRESENT ILLNESS: This is a 49-year-old female who returns today to discuss her chronic knee pain. She has avascular necrosis of her left knee. She has been having ongoing treatment at [facility] as well as taking chronic pain medicines from Dr. Cardoza. She is here for her monthly refill. She is reporting that her pain continues to increase, rating at 8/10 today, it is a sharp, aching tenderness feeling in her left hip and left knee, worse with any walking, standing or prolonged activity. She feels the medications are not working as effectively as it had in the past. She had been working out at the pool and her nearby center, but since the , has closed all of the recreational centers and gyms. She is not able to exercise. She is here requesting again another increase in her opioid medications. ALLERGIES: No known drug allergies. CURRENT LIST OF MEDICATIONS: OxyIR 10 mg 4-1/2 tablets a day, Hysingla 60 mg daily, Flexeril, amitriptyline 150 mg, Narcan as needed, Xarelto, Lipitor 40 mg, Vascepa, omeprazole 40 mg, gabapentin 300 mg b.i.d., ascorbic acid, Mag-Ox, melatonin, vitamin D, Xanax, and bupropion. PQRS: 1. She has osteoarthritis in bilateral knees. Denies any rheumatoid arthritis. 2. Height is 5 feet 6 inches, weight is 183, BMI is 29. 3. Vital signs 114/90, pulse is 97, respirations 16, oxygen sat is 97. 4. Pain score is 8/10. 5. Denies dizziness, does not need help walking or standing, has not fallen in the last 3 months. 6. The patient is on Xarelto as well as hypertension medicines. 7. Opiate therapy is greater than 6 weeks; therefore, an opioid signed contract is on the chart. Risk assessment tool is moderate. Functional assessment is 42/70. 8. Recreational drug use, she denies. She is a former smoker and does not drink alcohol. According to the prescription monitoring system, the patient is filling in a timely fashion. She is due to fill her medicines in about 2 weeks, according to [address] [address] PAIN MANAGEMENT CONSULTATION Name: FREDERIC CA KAREN Room #: REG CLI Delilah#: [id number] Admission: 01/18/20 Attend Phys: Radha Sorensen Discharge: Date of : 74 Report #: [id number] the PDMP report and her morphine mEq according to the CDC guidelines is 120. There is a drug screen on the chart that is appropriate as well. PHYSICAL EXAMINATION: GENERAL: This is alert and orientated, slightly depressed 49-year-old female who appears her stated age, placing her current pain score at 8/10. HEENT: Normocephalic, atraumatic. Extraocular eye muscles are intact. Mucous membranes are moist. MUSCULOSKELETAL: She walks with a slightly antalgic gait. She has discomfort in her knees bilaterally, greater on the left than the right. Numbness and tingling in her bilateral thighs, worse on the left. IMPRESSION: 1. Chronic pain, status post stem cell replacement at [facility]. 2. Avascular necrosis of the bilateral knees. 3. Bilateral hip pain. 4. Depression. 5. Anxiety. 6. Management of opioid medications under written agreement. We reviewed the fact that opiate medications are being used to provide analgesia adequate to support activities of daily living, not attempting to achieve a specific pain score on the 0-10 Visual Analog Scale. The current opiate medications are providing sufficient analgesia to allow the patient to participate in activities of daily living. The patient is not exhibiting any aberrant behavior suggestive of drug diversion. The patient is not having any adverse reactions to medications. The patient is not suffering from daytime somnolence or mental acuity changes. The patient is managing opiate-induced constipation with appropriate qerc-swt-xwucofm agents and dietary considerations. The patient was counseled on concern for caution with operating a motor vehicle while using opiate medications. PLAN: 1. We discussed treatment options with the patient today. The patient is asking for an increase in her OxyIR tablets back to 135 pills per month. She reports that her pain continues to increase. She has not been able to exercise recently due to the COVID-19 closing all the gyms and she is not seeing her doctors at [facility] since they are no longer seeing patients during this time as well. I explained to the patient according to the CDC guidelines, her morphine mEq is already at 120, which is above the guidelines of 90 or below. We are unable to increase her medications, but we did discuss opioid rotation. The patient had been stable on Hysingla for quite some time. I discussed this case with Dr. Ralph Cardoza and we decided to do an opioid rotation to methadone titrating her slowly starting at 5 mg b.i.d., increasing to a max of 10 mg b.i.d., increasing 5 mg tablet every 5 days. I explained to the patient that she would be at 140 morphine mEq, if she does take a max of methadone at [address] [address] PAIN MANAGEMENT CONSULTATION Name: FREDERIC CA Room #: REG [facility]..#: [id number] Admission: 01/18/20 Attend Phys: Radha Sorensen Discharge: Date of : 74 Report #: [id number] mg per day. This would be an increase over all of her MMEs, if we continue at her OxyIR 4 times a day. The patient is agreeable to try this opioid rotation with the hopes of decreasing her overall pain control. 2. Scripts given for methadone 10 mg, #60 as well as OxyIR 10 mg, #120 and amitriptyline 150 mg at bedtime, quantity 30 with 2 refills. 3. The patient will follow up in 1 month for an appointment, but will call if any problems arise while titrating up on her methadone. The patient is seen today in collaboration with Dr. Ralph Cardoza. <ELECTRONICALLY SIGNED> By: Radha Sorensen 01/19/20 0909 0923 0949 Radha Sorensen /niya
== END ==
LOC: PAIN 06:47
DX: G89.29 Other chronic pain (principal); I96 Gangrene, not elsewhere classified; M25.552 Pain in left hip; M25.551 Pain in right hip; F41.8 Other specified anxiety disorders; F11.20 Opioid dependence, uncomplicated; Z79.84 Long term (current) use of oral hypoglycemic drugs; Z79.899 Other long term (current) drug therapy

== ENCOUNTER → 2020-02-15 | Outpatient (CLI) | payer OTHER ==
[~2020-02-15] VITALS: Ht 165.1 cm; Wt 84.4 kg
[2020-02-15 08:16] VITALS: BP 151/94
--- NOTE | 2020-02-15 08:22 | NUR ---
Pain Clinic Assessment: 1. History of Osteoarthritis: KNEES HIP History of Rheumatoid Arthritis: DENIES 2. Height: 5 ft. 5 in. 165.1 cm. Weight: 186.0 lb. oz. 84.369 kg. Patient's BMI: 31.0 3. Vital Signs: BP: 151/94 Pulse: 101 Resp: 18 Temp: 02 Sat: 96 ECG Mon: 4. Pain Intensity: 3-4 5. Fall Risk: Dizziness: N Needs help standing or walking: N Fallen in the last 3 months: N Fall risk comments: 6. Patient on Blood Thinner: XARELTO 7. History of Hypertension: Y 8. Opioid Therapy greater than 6 weeks: Y Opiate Contract Signed: 06/19/17 9. Risk Assessment Tool Provided: mod-5 10. Functional Assessment Tool: 11. Recreational Drug Use: Never Drug Type: Tobacco Use: Former Smoker Tobacco Type: Amount or Packs/day: How Many Years: Alcohol Use: No Frequency: Quant:
--- NOTE | 2020-02-15 14:28 | HPC ---
[facility] [address] [place] [address] PAIN MANAGEMENT CONSULTATION Name: FREDERIC CA Room #: REG [facility] M..#: [id number] Admission: 02/15/20 Attend Phys: Radha Sorensen Discharge: Date of : 74 Report #: [id number] THIS REPORT FOR: cc: Sheridan White Cindy RNP Hocker,Radha MALLORY ~ CC:Bryson Cardoza MD DATE OF SERVICE: 02/15/2020 CHIEF COMPLAINT: Chronic pain as a result of avascular necrosis of her knee. HISTORY OF PRESENT ILLNESS: This is a 49-year-old female who returns to the pain clinic today for refill of her opioid medications. At her last visit a month ago, we had an opioid rotation from Hysingla to methadone due to the decrease in efficacy of her medications. Today, she is reporting a significant decrease in her pain from a 10-3 today. She feels that the medication has been beneficial in decreasing her pain, though she does complain today of significant constipation that she is having troubles resolving. Today, she reports her pain is an aching tenderness, worse with any ambulation and prolonged standing on concrete. She feels that the medications as well as rest have been beneficial as in regards to her constipation, she has tried Metamucil with no results. Today, she would like refills of her medication and to discuss possible changes in how she is taking the medicines. ALLERGIES: No known drug allergies. CURRENT LIST OF MEDICATIONS: Gabapentin 300 mg b.i.d., amitriptyline 75 mg p.r.n., methadone 10 mg b.i.d., OxyIR 10 mg p.r.n., Flexeril 10 mg at bedtime, Xarelto, Lipitor, Vascepa, ascorbic acid, Mag-Ox, vitamin D, alprazolam and bupropion. PQRS: 1. She has osteoarthritis in her knees and hips. Denies any rheumatoid arthritis. 2. Height is 5 feet 5 inches, weight is 186, BMI is 31. 3. Vital signs 151/94, pulse is 101, respirations 18, oxygen sat is 96. 4. Pain score is 3-4. 5. Denies dizziness, does not need help walking or standing, has not fallen in the last 3 months. 6. The patient is on Xarelto as well as medicine for hypertension. 7. Opioid therapy is greater than 6 weeks; therefore, an opioid signed contract is on the chart. Risk assessment tool is moderate. Functional assessment is 42/70. 8. Recreational drug use, she denies. She is a former smoker [place] [address] PAIN MANAGEMENT CONSULTATION Name: FREDERIC CA AKREN Room #: REG [facility] Mazariegos#: [id number] Admission: 02/15/20 Attend Phys: Radha Sorensen Discharge: Date of : 74 Report #: [id number] drink alcohol. According to the prescription monitoring system, the patient is due to fill her methadone this week and her oxycodone and is due next week. According to the CDC guidelines with the adjustment in her medications, her morphine milliequivalent is 125 according to the CDC guidelines. PHYSICAL EXAMINATION: GENERAL: This is alert and orientated 49-year-old female who appears her stated age, placing her current pain score at 3/10 today. HEENT: Normocephalic, atraumatic. Extraocular eye muscles are intact. Mucous membranes are moist. MUSCULOSKELETAL: She has an antalgic gait. She has discomfort that radiates in her bilateral knees, greater on the left than the right. Numbness and tingling is present in her left thigh. IMPRESSION: 1. Chronic pain, status post stem cell replacement at [place]. 2. Avascular necrosis of her bilateral knees. 3. Bilateral hip pain. 4. Depression. 5. Anxiety. 6. Management of opioid medications. We reviewed the fact that opiate medications are being used to provide analgesia adequate to support activities of daily living, not attempting to achieve a specific pain score on the 0-10 Visual Analog Scale. The current opiate medications are providing sufficient analgesia to allow the patient to participate in activities of daily living. The patient is not exhibiting any aberrant behavior suggestive of drug diversion. The patient is not having any adverse reactions to medications. The patient is not suffering from daytime somnolence or mental acuity changes. The patient is managing opiate-induced constipation with appropriate kksr-uyq-ndepbnl agents and dietary considerations. The patient was counseled on concern for caution with operating a motor vehicle while using opiate medications. A physical exam was performed and the patient's functional status was evaluated. All patients with back pain were advised against the bed rest greater than 4 days and were advised to return to normal activities. Pain score assessment was noted and the treatment plan was reviewed with the patient. All current medications, both prescribed and OTC were reviewed and reconciled on the electronic medical record. Tobacco screening was accomplished and smoking cessation was advised when indicated. BMI was noted and diet/exercise modification was recommended for all patients following outside normal parameters. I reviewed with the patient today their responsibilities to safeguard prescription medications, reviewed their responsibility to utilize medications [address] [address] PAIN MANAGEMENT CONSULTATION Name: FREDERIC CA Room #: REG CLElise Vitale#: [id number] Admission: 02/15/20 Attend Phys: Radha Sorensen Discharge: Date of : 74 Report #: [id number] only as prescribed by the physician. They are to seek and receive pain medications only from 1 physician group ( [facility]). They are to use 1 pharmacy and keep the clinic informed if they change pharmacies. Their responsibilities include making followup visits in a timely fashion and to avoid abrupt discontinuation of medication usage. Their responsibilities further include bringing their medications (bottles from the pharmacy with residual pills) to the visit for possible confirmation of pill counts and the patient understands it is their responsibility to submit to random drug screens to ensure both that the medications prescribed are present, and that no other controlled substances are present. All prescriptions provided today were generated electronically. PLAN: 1. We discussed treatment options with the patient today. The patient feels that the overall rotation from Hysingla to methadone has been beneficial. She has significantly decreased her pain score from 8-3. She currently has been taking 10 mg of methadone in the morning and 5mg at bedtime, but occasionally she does need to take the extra 5 mg tablet. We discussed having her trial 10 mg morning, 5 mg in the middle of the day and 5 mg at night. This will also hopefully enable her to decrease some of her oxycodone use. Someday she is requiring 2 where other day she is requiring 4 tablets. Overall, we will try 3 OxyIR tablets and hopefully, she will find that she is needing less of this medication by using the long-acting medications throughout the day. Scripts given today for 1-month supply of methadone 10 mg #60 and OxyIR 10 mg #90. 2. The patient has been able to decrease her amitriptyline from 150 mg to 75 at bedtime. She feels that she is sleeping much better as a result of taking the methadone. 3. The patient is having significant constipation as a result of the opioid rotation. I explained to her that sometimes this does happen and her body will usually adjust to the new medicine and she will be back to her normal bowel movement regimen. In the meantime, I encouraged her to take MiraLax during the daytime hours and the Senokot in the evening. The patient verbalized understanding. We also encouraged her to drink plenty of liquids. 4. The patient is seen in collaboration today with Dr. Ralph Cardoza. The patient will return in 1 month for medication evaluation. <ELECTRONICALLY SIGNED> By: Radha Sorensen 02/15/20 1428 [id number] [id number] Radha Sorensen /niya
== END ==
LOC: PAIN 06:37
DX: I96 Gangrene, not elsewhere classified (principal); G89.29 Other chronic pain; F32.9 Major depressive disorder, single episode, unspecified; F41.9 Anxiety disorder, unspecified; Z76.0 Encounter for issue of repeat prescription; Z79.891 Long term (current) use of opiate analgesic; Z79.899 Other long term (current) drug therapy

== ENCOUNTER → 2020-03-14 | Outpatient (CLI) | payer OTHER ==
[~2020-03-14] VITALS: Ht 167.6 cm; Wt 84.6 kg
--- NOTE | 2020-03-14 08:13 | NUR ---
Pain Clinic Assessment: 1. History of Osteoarthritis: KNEES HIP History of Rheumatoid Arthritis: DENIES 2. Height: ft. in. cm. Weight: lb. oz. kg. Patient's BMI: 3. Vital Signs: BP: Pulse: Resp: Temp: 02 Sat: ECG Mon: 4. Pain Intensity: 3 5. Fall Risk: Dizziness: Needs help standing or walking: Fallen in the last 3 months: Fall risk comments: 6. Patient on Blood Thinner: XARELTO 7. History of Hypertension: Y 8. Opioid Therapy greater than 6 weeks: Y Opiate Contract Signed: 06/19/17 9. Risk Assessment Tool Provided: mod-5 10. Functional Assessment Tool: 11. Recreational Drug Use: Never Drug Type: Tobacco Use: Former Smoker Tobacco Type: Amount or Packs/day: How Many Years: Alcohol Use: No Frequency: Quant:
[2020-03-14 08:14] VITALS: BP 134/92
--- NOTE | 2020-03-14 08:15 | NUR ---
Pain Clinic Assessment: 1. History of Osteoarthritis: KNEES HIP History of Rheumatoid Arthritis: DENIES 2. Height: 5 ft. 6 in. 167.6 cm. Weight: 186.4 lb. oz. 84.551 kg. Patient's BMI: 30.1 3. Vital Signs: BP: 134/92 Pulse: 102 Resp: 18 Temp: 02 Sat: 99 ECG Mon: 4. Pain Intensity: 3 5. Fall Risk: Dizziness: N Needs help standing or walking: N Fallen in the last 3 months: N Fall risk comments: 6. Patient on Blood Thinner: XARELTO 7. History of Hypertension: Y 8. Opioid Therapy greater than 6 weeks: Y Opiate Contract Signed: 06/19/17 9. Risk Assessment Tool Provided: mod-5 10. Functional Assessment Tool: 11. Recreational Drug Use: Never Drug Type: Tobacco Use: Former Smoker Tobacco Type: Amount or Packs/day: How Many Years: Alcohol Use: No Frequency: Quant:
--- NOTE | 2020-03-14 11:40 | HPC ---
[facility] [address] [place] [address] PAIN MANAGEMENT CONSULTATION Name: FREDERIC CA Room #: REG [facility] M..#: [id number] Admission: 03/14/20 Attend Phys: Radha Sorensen Discharge: Date of : 74 Report #: [id number] THIS REPORT FOR: cc: Sheridan White Cindy RNP Hocker,Radha MALLORY ~ CC: Bryson Cardoza MD DATE OF SERVICE: 03/14/2020 CHIEF COMPLAINT: Avascular necrosis, bilateral knee pain. HISTORY OF PRESENT ILLNESS: This is a very pleasant 49-year-old female who returns to the pain clinic today for her ongoing pain management. She continues to have pain in her hips and left knee. She does report that the methadone has been very beneficial in controlling her pain. She is reporting a pain score of 3/10 today. At times, she is able to take 1-1/2 tablets total per day and less of her OxyIR 10 mg, other days since she is busy at work standing on concrete, which does increase her pain, She does require a total of 20 mg of methadone in all of her breakthrough pain medicine. She does continue to have issues with her constipation. She has been taking a stool softener and MiraLax on an as needed basis. The patient reports that it is an achy, tender feeling in her knee that is worse of course with ambulation. She feels that she has been needing the amitriptyline more at bedtime and has been taking her full dose of 150. This has been causing some dry mouth since she has increased her dose from 75. ALLERGIES: No known drug allergies. CURRENT LIST OF MEDICATIONS: OxyIR 10 mg p.r.n., methadone 10 mg b.i.d., gabapentin 300 b.i.d., amitriptyline 150 mg, Flexeril, Xarelto, Lipitor, Vascepa, omeprazole, vitamin C, Mag-Ox, melatonin, vitamin D, Xanax and bupropion. PQRS: 1. She has osteoarthritic changes in her knees and hips. Denies any rheumatoid arthritis. 2. Height is 5 feet 5 inches, weight is 186, BMI is 30. 3. Vital signs 134/92, pulse is 102, respirations 18, oxygen sat is 99. 4. Pain score is 3/10. 5. Denies dizziness, does not need help walking or standing, has not fallen in the last 3 months. The patient is on Xarelto as well as medicines for hypertension. 6. Her opioid therapy is greater than 6 weeks; therefore, an opioid signed contract is on the chart. Risk assessment is moderate. Functional assessment is 42/70. [address] [address] PAIN MANAGEMENT CONSULTATION Name: ROBYFREDERIC KAREN Room #: REG NIYAH Mazariegos#: [id number] Admission: 03/14/20 Attend Phys: Radha Sorensen Discharge: Date of : 74 Report #: [id number] 7. Recreational drug use, she denies. She is a former smoker and does not drink alcohol. According to the prescription monitoring system, she is due to fill her methadone today, filling her medicines in a timely fashion. She does continue to take alprazolam and has not had any problems with opioid, benzodiazepine combination as she has been on both for quite some time. According to the CDC guidelines, her morphine mEq is 100 MME per day. We have a current urine drug screen that is appropriate on the chart as well. PHYSICAL EXAMINATION: GENERAL: This is alert and orientated 49-year-old female who appears her stated age. She is a well-developed, well-nourished 49-year-old female, placing her current pain score at 3/10 today. HEENT: Normocephalic, atraumatic. Extraocular eye muscles are intact. She is wearing a mask. She reports dry mouth. MUSCULOSKELETAL: She has a slightly antalgic gait. Discomfort radiates from her hips to her knees, greater on the left than the right. Her bilateral thighs are tender to the touch. Her lower extremity strength judged to be 5/5 in all major muscle groups. IMPRESSION: 1. Chronic pain, status post stem cell replacement at [place]. 2. Avascular necrosis of the bilateral knees. 3. Bilateral hip pain. 4. Depression. 5. Anxiety. 6. Management of opioid medications under terms of written agreement. We reviewed the fact that opiate medications are being used to provide analgesia adequate to support activities of daily living, not attempting to achieve a specific pain score on the 0-10 Visual Analog Scale. The current opiate medications are providing sufficient analgesia to allow the patient to participate in activities of daily living. The patient is not exhibiting any aberrant behavior suggestive of drug diversion. The patient is not having any adverse reactions to medications. The patient is not suffering from daytime somnolence or mental acuity changes. The patient is managing opiate-induced constipation with appropriate dscx-rob-scwltjx agents and dietary considerations. The patient was counseled on concern for caution with operating a motor vehicle while using opiate medications. PLAN: 1. We discussed treatment options with the patient today. The patient finds the methadone very beneficial in controlling her pain. She is very happy with the switch, currently taking 1 tablet in the morning and half a tablet twice throughout the day, a total of 20 mg per day. We will refill this medicine for [facility] [address] [place] [address] PAIN MANAGEMENT CONSULTATION Name: FREDERIC CA Room #: REG NIYAH Delilah#: [id number] Admission: 03/14/20 Attend Phys: Radha Sorensen Discharge: Date of : 74 Report #: [id number] one additional month and continue her on her oxycodone 10 mg as well up to 3 tablets a day. This will be sent electronically by Dr. Ralph Cardoza. 2. The patient continues to have problems with constipation. We encouraged her to take Senokot on a daily basis and MiraLax in the morning. She has only been using a stool softener and we will see if this helps with her constipation issues. 3. The patient has been taking amitriptyline 75 mg at night, but prior dose was 150mg, which she has recently restarted. She has been experiencing increased dryness of her mouth. I encouraged use of Tic Tac and explained her hopefully her body will readjust to this higher dose of medication that she is taking at night. 4. The patient is seen in collaboration with Dr. Ralph Cardoza. We will discuss possible decreasing of her OxyIR to 2 tablets a day at her next visit, which will be in a month. <ELECTRONICALLY SIGNED> By: Radha Sorensen 03/14/20 1140 0837 [id number] Radha Sorensen /niya
== END ==
LOC: PAIN 06:57
DX: M25.551 Pain in right hip (principal); M25.552 Pain in left hip; G89.29 Other chronic pain; F32.9 Major depressive disorder, single episode, unspecified; F41.9 Anxiety disorder, unspecified; Z79.891 Long term (current) use of opiate analgesic

== ENCOUNTER → 2020-04-11 | Outpatient (CLI) | payer OTHER ==
[~2020-04-11] VITALS: Ht 160 cm; Wt 83.1 kg
[2020-04-11 08:15] VITALS: BP 127/93
--- NOTE | 2020-04-11 08:33 | NUR ---
Pain Clinic Assessment: 1. History of Osteoarthritis: KNEES HIP History of Rheumatoid Arthritis: DENIES 2. Height: 5 ft. 3 in. 160.0 cm. Weight: 183.2 lb. oz. 83.099 kg. Patient's BMI: 32.5 3. Vital Signs: BP: 127/93 Pulse: 109 Resp: 16 Temp: 02 Sat: 99 ECG Mon: 4. Pain Intensity: 3 5. Fall Risk: Dizziness: N Needs help standing or walking: N Fallen in the last 3 months: N Fall risk comments: 6. Patient on Blood Thinner: XARELTO 7. History of Hypertension: Y 8. Opioid Therapy greater than 6 weeks: Y Opiate Contract Signed: 06/19/17 9. Risk Assessment Tool Provided: mod-5 10. Functional Assessment Tool: 11. Recreational Drug Use: Never Drug Type: Tobacco Use: Former Smoker Tobacco Type: Amount or Packs/day: How Many Years: Alcohol Use: No Frequency: Quant:
--- NOTE | 2020-04-11 12:28 | HPC ---
[facility] [place] [address] PAIN MANAGEMENT CONSULTATION Name: FREDERIC CA Room #: REG [facility] M..#: [id number] Admission: 04/11/20 Attend Phys: Radha Sorensen Discharge: Date of : 74 Report #: [id number] THIS REPORT FOR: cc: Sheridan White Cindy RNP Hocker,Radha MALLORY ~ CC: Radha Cardoza MD DATE OF SERVICE: 04/11/2020 CHIEF COMPLAINT: Avascular necrosis with bilateral knee pain. HISTORY OF PRESENT ILLNESS: This is a pleasant 49-year-old female who returns to the pain clinic today for refills of her medication. She reports that she is feeling quite well. She is reporting a pain score 3/10. She believes that the methadone has been beneficial in decreasing her pain and she is hopeful that the Xarelto has also been helping decrease her pain as well in her knees. She believes that she is on the right path and finally feeling better. She is more upbeat in her appearance today. She states that she does have increased pain on days when she is more active and standing more on concrete. She states that her constipation is better controlled now since her body has adjusted to her medications and feels overall that she is improving. Today, she is requesting refills of all of her medications. ALLERGIES: No known drug allergies. CURRENT LIST OF MEDICATIONS: OxyIR 10 mg 3 times a day, methadone 10 mg b.i.d., gabapentin, amitriptyline, Flexeril, Xarelto, Lipitor, Vascepa, omeprazole topical cream, vitamin C, Mag-Ox, melatonin, vitamin D, alprazolam and bupropion. PQRS: 1. She has arthritic changes in her knees and hips. Denies any rheumatoid arthritis. 2. Height is 5 feet 3 inches, weight is 183, BMI is 32. Vital signs 127/93, pulse is 109, respirations 16, oxygen sat is 99. 3. Pain score is 3/10. 4. Denies dizziness, does not need help walking or standing, has not fallen in the last 3 months. 5. The patient is on Xarelto as well as medicine for hypertension. 6. Opioid therapy is greater than 6 weeks; therefore, an opioid signed contract is on the chart. Risk assessment is moderate. Functional assessment is 42/70. 7. Recreational drug use, she denies. She is a former smoker and does not drink alcohol. [facility] [address] [place] [address] PAIN MANAGEMENT CONSULTATION Name: FREDERIC CA Room #: REG [facility]#: [id number] Admission: 04/11/20 Attend Phys: Radha Sorensen Discharge: Date of : 74 Report #: [id number] According to the prescription monitoring system, the patient is filling appropriately for her medications. According to the CDC guidelines, her morphine mEq per day is 105. There is a recent drug screen on the chart that is appropriate as well. PHYSICAL EXAMINATION: GENERAL: This is a well-developed, well-nourished, well-hydrated 49-year-old female who is more upbeat today, placing her current pain score at 3/10. She is a good historian. HEENT: Normocephalic, atraumatic. Extraocular eye muscles are intact. She is wearing a mask. MUSCULOSKELETAL: She has pain and tingling that radiates from her hips into her bilateral knees, greater on the left than the right. Tenderness to the touch in her thighs. Her lower extremity strength judged to be 5/5 in all major muscle groups. She does deny any back pain. She has a slightly antalgic gait. IMPRESSION: 1. Chronic pain, status post stem cell replacement at [place]. 2. Avascular necrosis of the bilateral knees. 3. Bilateral hip pain. 4. Depression. 5. Anxiety. 6. Management of high risk medications under terms of written opioid agreement. We reviewed the fact that opiate medications are being used to provide analgesia adequate to support activities of daily living, not attempting to achieve a specific pain score on the 0-10 Visual Analog Scale. The current opiate medications are providing sufficient analgesia to allow the patient to participate in activities of daily living. The patient is not exhibiting any aberrant behavior suggestive of drug diversion. The patient is not having any adverse reactions to medications. The patient is not suffering from daytime somnolence or mental acuity changes. The patient is managing opiate-induced constipation with appropriate qrsj-fki-cujrgrj agents and dietary considerations. The patient was counseled on concern for caution with operating a motor vehicle while using opiate medications. PLAN: 1. We discussed treatment options with the patient today. The patient is doing quite well on her current regimen. She reports she takes methadone 10 mg in the morning and then at bedtime and at times she is able to decrease her OxyIR to 2 tablets a day. We had discussed at her last visit decreasing the amount of medicines that she does take. I believe that we will try that she will be able to decrease her breakthrough medicine to 2 tablets a day, but is apprehensive today. We discussed this and have agreed upon 75 tablets for 1 month. The patient allowed to take 2 tablets most days and then occasionally a third on painful days. We will trial this for 1 month and see how she does with her [address] [place] [address] PAIN MANAGEMENT CONSULTATION Name: FREDERIC CA Room #: REG [facility]..#: [id number] Admission: 04/11/20 Attend Phys: Radha Sorensen Discharge: Date of : 74 Report #: [id number] pain. Another option that I discussed with her is decreasing the strength of her oxycodone allowing her 3 tablets a day. 2. Dr. Cardoza will send electronically her methadone 10 mg b.i.d. and OxyIR 10 mg, #75. 3. I have taken the liberty of refilling her amitriptyline 150 mg, #30 with 2 additional refills. She finds this beneficial taking it at bedtime and has been taking it on a daily basis. She reports that she is sleeping well with her current regimen. 4. The patient did request a Medrol Dosepak. At this time, I encouraged her to hold off due to the coronavirus. If her pain does increase, she is encouraged to use topical cream on her knees and hips, but if it is that she does have a significant flare, we may call in a Medrol Dosepak. 5. The patient is seen in collaboration with Dr. Ralph Cardoza. The patient will return in 1 month. <ELECTRONICALLY SIGNED> By: Radha Sorensen 04/11/20 1228 0855 09 Radha Sorensen /niya
== END ==
LOC: PAIN 06:47
PROVIDERS: ATTEND Clinical Nurse Specialist Adult Health
DX: G89.29 Other chronic pain (principal); M25.551 Pain in right hip; M25.552 Pain in left hip; M87.059 Idiopathic aseptic necrosis of unspecified femur; F41.8 Other specified anxiety disorders; F11.20 Opioid dependence, uncomplicated; Z79.899 Other long term (current) drug therapy

== ENCOUNTER → 2020-05-09 | Outpatient (CLI) | payer OTHER ==
--- NOTE | 2020-05-09 15:27 | HPC ---
[facility] [place] [address] [address] PAIN MANAGEMENT CONSULTATION Name: FREDERIC CA Room #: REG [facility] M.R.#: [id number] Admission: 05/09/20 Attend Phys: Radha Sorensen Discharge: Date of : 74 Report #: [id number] THIS REPORT FOR: cc: Sheridan White Cindy RNP Hocker,Radha MALLORY ~ CC: Bryson Cardoza MD DATE OF SERVICE: 05/09/2020 This is a telemed appointment for this patient due to a diagnosis for her possible COVID. She is in isolation. She has agreed to this telemed appointment from 8:35-8:50 via the [employer] audiovisual. CHIEF COMPLAINT: Avascular necrosis with bilateral knee pain. HISTORY OF PRESENT ILLNESS: This is a very pleasant 49-year-old female who I am speaking with via the [employer] audiovisual for a telemed appointment due to the COVID outbreak. She is in isolation. She states to me that her pain score is a 3-4/10. At times, she feels that it is much better since her methadone therapy has been started. Today, she is stating that her left hip and left knee had been problematic. Overall, though she feels that she is doing better. Since she has been staying home, she has not been as active as she normally, and so that has made it difficult for her to describe her pain as well. She has been mostly sitting and usually her pain is worse when she is walking and standing on concrete for her job. She denies any problems with daytime somnolence or constipation as a result of her medication. Today, she feels that most days she is able to get by with oxycodone 10 mg 2 tablets a day, occasionally 1. She is hopeful that she will be able to decrease that medicine altogether and just take her methadone. She does continue to take her amitriptyline at bedtime to help with sleep. ALLERGIES: No known drug allergies. CURRENT LIST OF MEDICATIONS: OxyIR 10 mg p.r.n., methadone 10 mg b.i.d., gabapentin, amitriptyline, Flexeril, Xarelto, Lipitor, Vascepa, omeprazole, topical cream, vitamin C, Mag-Ox, melatonin, vitamin D, alprazolam and bupropion. PQRS: 1. She has arthritic changes in her hips and knees. She denies any rheumatoid arthritis. 2. Height, weight and vital signs were deferred due to a telemed appointment. 3. Pain score 3-4. 4. Complains of slight dizziness due to her possible COVID outbreak. She does [facility] [address] [place] [address] PAIN MANAGEMENT CONSULTATION Name: FREDERIC CA KAREN Room #: REG NIYAH Vitale.#: [id number] Admission: 05/09/20 Attend Phys: Radha Sorensen Discharge: Date of : 74 Report #: [id number] not need help walking or standing, has not fallen in the last 3 months. 5. The patient is on Xarelto as well as medicines for hypertension. 6. Opioid therapy is greater than 6 weeks; therefore, an opioid signed contract is on the chart. Risk assessment is moderate. Functional assessment is 42/70. 7. Recreational drug use, she denies. She is a former smoker and does not drink alcohol. According to the prescription monitoring system, the patient filled her oxycodone on 05/01/2020 and is due to fill her methadone on the . We will work on trying to get these medications filled on the same days. The patient feels like she could make her current oxycodone last to equal her methadone prescriptions. According to the CDC guidelines, her morphine mEq per day is 105. There is a recent drug screen on the chart. Physical examination is deferred. This is a review of systems. She is a well-developed, well-nourished female who is speaking with me via the telephone. She is alert and orientated, answering all my questions appropriately. I had her walk and she does have an antalgic gait, complaining of pain in her hip that radiates into her left knee. She does have a cough that is present, nonproductive today. IMPRESSION: 1. Chronic pain, status post stem cell replacement at [facility]. 2. Avascular necrosis of the bilateral knees. 3. Bilateral hip pain, right greater than left. 4. Depression and anxiety. 5. Possible COVID, one negative result, though remains symptomatic. 6. Management of high risk medications under terms of written opioid agreement. We reviewed the fact that opiate medications are being used to provide analgesia adequate to support activities of daily living, not attempting to achieve a specific pain score on the 0-10 Visual Analog Scale. The current opiate medications are providing sufficient analgesia to allow the patient to participate in activities of daily living. The patient is not exhibiting any aberrant behavior suggestive of drug diversion. The patient is not having any adverse reactions to medications. The patient is not suffering from daytime somnolence or mental acuity changes. The patient is managing opiate-induced constipation with appropriate fogc-msj-pynjghx agents and dietary considerations. The patient was counseled on concern for caution with operating a motor vehicle while using opiate medications. PLAN: 1. We discussed treatment options with the patient today. The patient finds her methadone very beneficial in controlling her pain. At days, she is able to take one breakthrough pain medicine, though some days, she does require 3. She [facility] [address] [address] PAIN MANAGEMENT CONSULTATION Name: FREDERIC CA Room #: REG Elise M.R.#: [id number] Admission: 05/09/20 Attend Phys: Radha Sorensen Discharge: Date of : 74 Report #: [id number] will continue to work towards decreasing that dose. We are attempting to get her medications on the same date. She will try to make her oxycodone script last through this whole methadone script, but we will provide her with a script in case she is unable to do this. 2. Dr. Cardoza will send electronically methadone 10 mg b.i.d., #60 as well as her OxyIR 10 mg, #75. 3. The patient will follow up in 1 month. At that time, hopefully, we will be able to decrease her oxycodone to 60 tablets and then see her bimonthly. The patient verbalizes this and is hopeful as well. 4. The patient is seen in collaboration via this telemed appointment with Dr. Cardoza today. <ELECTRONICALLY SIGNED> By: Radha Sorensen 05/09/20 1527 0900 1221 Radha Sorensen /niya
== END ==
LOC: PAIN 06:51 → TELEPC 06:51 → PAIN 09:30
PROVIDERS: ATTEND Clinical Nurse Specialist Adult Health
DX: I96 Gangrene, not elsewhere classified (principal); M25.561 Pain in right knee; M25.562 Pain in left knee; G89.29 Other chronic pain; M25.551 Pain in right hip; M25.552 Pain in left hip; F41.8 Other specified anxiety disorders; F11.20 Opioid dependence, uncomplicated; Z79.899 Other long term (current) drug therapy

== ENCOUNTER → 2020-06-13 | Outpatient (CLI) | payer OTHER ==
[~2020-06-13] MED LIST changes: +CYMBALTA30 MG PO; +LYRICA100 MG PO
--- NOTE | 2020-06-13 11:25 | HPC ---
[facility] [address] [address] PAIN MANAGEMENT CONSULTATION Name: SUJATA CA Room #: REG [facility] M..#: [id number] Admission: 06/13/20 Attend Phys: Radha Sorensen Discharge: Date of : 74 Report #: [id number] THIS REPORT FOR: cc: Sheridan White Cindy RNP Hocker,Radha MALLORY ~ CC: Bryson Cardoza MD DATE OF SERVICE: 06/13/2020 CHIEF COMPLAINT: Avascular necrosis with bilateral knee pain. This is a telemedicine appointment begin with the patient via the telephone today from 8:35-8:55 for her appointment. HISTORY OF PRESENT ILLNESS: This is a very pleasant 49-year-old female who I am speaking with via the telephone for her telemedicine appointment due to the patient unable to come to her visit today due to recent seizure activity. Sujata reports to us that on 05/29/2020, she was visiting with her after dinner, she started staring off into space, she fell. Per her 's report, she was kicking her arms and legs. She bit her tongue several times. He did call 911. The ambulance came and brought her to [facility]. She was postictal at that time. She has seen a neurologist there that has changed her medications discontinuing gabapentin and Wellbutrin starting her on Lyrica 100 mg as well as Cymbalta 30 mg. The patient reports to me today that she is feeling quite well since the change in medications. She has been having some swelling in her lower extremities and her weight is increased. She does report to me today that her pain score that we typically see her for in her bilateral knees and her thighs are slightly improved, rating her pain at 2-3 today. She thinks that maybe the Lyrica as being very beneficial despite the edema that she has in her lower extremities. The patient continues to have significant constipation issues. She has required Dulcolax suppository and has been taking Senokot every day to help with her constipation issues. Today, uSjata is requesting refills of her methadone and oxycodone. We have been trying to decrease her oxycodone to 2 tablets a day. She says most days she feels that she is able to do that, occasionally she does require 3 tablets. ALLERGIES: No known drug allergies. CURRENT LIST OF MEDICATIONS: Flexeril p.r.n., Xarelto, Lipitor, Vascepa, methadone 10 mg b.i.d., OxyIR 10 mg 2-3 times a day, Lyrica 100 mg daily, amitriptyline 150 mg at bedtime, Cymbalta 30 mg, alprazolam, Mag-Ox, omeprazole, ascorbic acid, vitamin D, melatonin. [address] [address] PAIN MANAGEMENT CONSULTATION Name: SUJATA CA Room #: REG [facility].#: [id number] Admission: 06/13/20 Attend Phys: Radha Sorensen Discharge: Date of : 74 Report #: [id number] PQRS: 1. She has arthritic changes in her hips and knees. Denies any rheumatoid arthritis. 2. Height is 5 feet 3, the patient's weight per her report is 190 today. Vital signs per the patient's report were 119/75, pulse was 100, pain score is 2-3. The patient denies dizziness, does not need help walking or standing. She has fallen when she had her seizure. The patient is on Xarelto as well as medicines for hypertension. Her opioid therapy is greater than 6 weeks; therefore, an opioid signed contract is on the chart. Risk assessment is moderate. Functional assessment is 42/70. 3. Recreational drug use, she denies. She is a former smoker and does not drink alcohol. According to the prescription monitoring system, she is filling appropriately for her medications. There is a recent drug screen on the chart that is appropriate. Her morphine mEq according to the CDC guidelines is 100. PHYSICAL EXAMINATION: GENERAL: This is a well-developed, well-nourished, well-hydrated 49-year-old female who I am speaking with via the telephone today, so we are doing a review of systems, she is rating her pain at 3/10. She is a good historian. MUSCULOSKELETAL: The patient reports less numbness and tingly in her thighs today. She does have edema in her lower extremities per her report, swelling around her ankles as well. She believes that her memory is not as clear as it has been earlier this year, forgetful at times. IMPRESSION: 1. Chronic pain, status post stem cell replacement at [place]. 2. Avascular necrosis of the bilateral knees. 3. Bilateral hip pain. 4. Depression and anxiety. 5. Recent seizure activity. 6. Management of high risk medications under terms of written opioid agreement. We reviewed the fact that opiate medications are being used to provide analgesia adequate to support activities of daily living, not attempting to achieve a specific pain score on the 0-10 Visual Analog Scale. The current opiate medications are providing sufficient analgesia to allow the patient to participate in activities of daily living. The patient is not exhibiting any aberrant behavior suggestive of drug diversion. The patient is not having any adverse reactions to medications. The patient is not suffering from daytime somnolence or mental acuity changes. The patient is managing opiate-induced constipation with appropriate vaou-orv-kznguui agents and dietary considerations. The patient was counseled on concern for caution with operating a motor vehicle while using opiate medications. [facility] [address] [place] [address] PAIN MANAGEMENT CONSULTATION Name: SUJATA CA Room #: REG [facility]..#: [id number] Admission: 06/13/20 Attend Phys: Radha Sorensen Discharge: Date of : 74 Report #: [id number] PLAN: 1. We discussed treatment options with the patient today. The patient feels that she is doing quite well despite her recent seizure. She is disappointed. She is not able to drive for 6 months; therefore, we are doing a telemedicine appointment with her today. She is also attempting to work with her employer to find a job that she is able to do at home temporarily. She had been working at home at the beginning of COVID and had recently returned after she had contracted COVID herself prior to her seizure. The patient believes that the Lyrica has been beneficial, though having swelling. I encouraged her to call her neurologist, keep an eye on her weight and discuss this with him at her next appointment. 2. We have continued to try and decrease her OxyIR usage. The pharmacy did fill her prescriptions earlier than she had requested. She has 51 tablets at home. We will give her a script sent electronically by Dr. Cardoza for 20 tablets today. This along with her 51 at home should get her to her next appointment in June. At that time, we will hopefully be able to decrease her to 60 tablets per month. 3. We will send methadone 10 mg b.i.d., #60 electronically to her pharmacy as well today. She believes that the change to methadone still continues to be beneficial, though she still has an issue with constipation taking Senokot or Dulcolax. I have encouraged her to possibly add even MiraLax on a daily basis to see if this is beneficial and encouraged her to drink more fluids. 4. The patient is not in need of her amitriptyline today. We will refill that at her next visit. The patent's case was discussed with Dr. Cardoza, who collaborated care today. <ELECTRONICALLY SIGNED> By: Radha Sorensen 06/13/20 1125 0917 1035 Radha Sorensen /niya
== END ==
LOC: TELEPC 06:49
PROVIDERS: ATTEND Clinical Nurse Specialist Adult Health
DX: M87.88 Other osteonecrosis, other site (principal); M25.552 Pain in left hip; G89.29 Other chronic pain; M25.551 Pain in right hip; R56.9 Unspecified convulsions; F41.9 Anxiety disorder, unspecified; F32.9 Major depressive disorder, single episode, unspecified; Z94.84 Stem cells transplant status

== ENCOUNTER → 2020-07-11 | Outpatient (CLI) | payer OTHER ==
[~2020-07-11] VITALS: Ht 165.1 cm; Wt 84.8 kg
[2020-07-11 08:00] VITALS: BP 119/83
--- NOTE | 2020-07-11 08:15 | NUR ---
Pain Clinic Assessment: 1. History of Osteoarthritis: KNEES HIP History of Rheumatoid Arthritis: DENIES 2. Height: 5 ft. 5 in. 165.1 cm. Weight: 187.0 lb. oz. 84.823 kg. Patient's BMI: 31.1 3. Vital Signs: BP: 119/83 Pulse: 91 Resp: 16 Temp: 02 Sat: 98 ECG Mon: 4. Pain Intensity: 6-7 5. Fall Risk: Dizziness: N Needs help standing or walking: N Fallen in the last 3 months: N Fall risk comments: 6. Patient on Blood Thinner: XARELTO 7. History of Hypertension: Y 8. Opioid Therapy greater than 6 weeks: Y Opiate Contract Signed: 06/19/17 9. Risk Assessment Tool Provided: mod-4 10. Functional Assessment Tool: 11. Recreational Drug Use: Never Drug Type: Tobacco Use: Former Smoker Tobacco Type: Amount or Packs/day: How Many Years: Alcohol Use: No Frequency: Quant:
--- NOTE | 2020-07-11 15:15 | HPC ---
[facility] [address] [place] [address] PAIN MANAGEMENT CONSULTATION Name: FREDERIC CA Room #: REG [facility]..#: [id number] Admission: 07/11/20 Attend Phys: Radha Sorensen Discharge: Date of : 74 Report #: [id number] THIS REPORT FOR: cc: Sheridan White Cindy RNP Hocker,Radha MALLORY ~ CC: Bryson Cardoza MD DATE OF SERVICE: 07/11/2020 CHIEF COMPLAINT: Avascular necrosis with bilateral knee pain. HISTORY OF PRESENT ILLNESS: This is a 49-year-old female who returns to the pain clinic today for refill of her opioid medications. She is here with her today since she is unable to drive due to a recent seizure. She has not experienced any further episodes. They believe it was possibly an interaction with medications, though they are unsure. So at this time, she is presently not driving and has not been able to work due to her job requires her to drive. She has been at home. She reports at times, her pain is increased because she is doing different activities than she normally would when she is at work. Her pain score today is a 6-7, located in her bilateral legs, especially her right knee. 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 She tells me that her knee is sore, aching feeling that is worse with activities. She feels that she has not been able to use the pool due to the COVID outbreak; therefore, she feels like she has gained some weight and the inactivity as well as the weight gain has increased her pain. The patient is requesting a refill of her medications today, but also is wondering about a possible increase in her oxycodone. She has recently stopped her amitriptyline because she felt that it was not beneficial. Therefore, she is not sleeping as well. She is also wondering if she may increase her Lyrica to help with some of her nerve pain. She has recently started seeing a psychiatrist in trying to help her deal with some anxiety she has been feeling with everything that has been going on in her life the past year. ALLERGIES: No known drug allergies. CURRENT LIST OF MEDICATIONS: OxyIR 10 mg p.r.n., methadone 10 mg b.i.d., Lyrica 100 mg twice a day, Cymbalta, Flexeril, Xarelto, Lipitor, Vascepa, omeprazole, ascorbic acid, magnesium, melatonin, vitamin D, and Xanax. PQRS: The patient has arthritic changes in her knees and hips. Denies rheumatoid arthritis. Height is 5 feet 5 inches, weight is 187, BMI is 31. Vital signs 119/83, pulse is 91, respirations 16, oxygen sat is 98%, pain score is 6-7. Fall risk. Denies dizziness, does not need help walking or standing, has not fallen in the last 3 months. The [place] [address] PAIN MANAGEMENT CONSULTATION Name: ROBYFREDERIC KAREN Room #: REG NIYAH Mazariegos#: [id number] Admission: 07/11/20 Attend Phys: Radha Sorensen Discharge: Date of : 74 Report #: [id number] medicines for hypertension. Her opioid therapy is greater than 6 weeks; therefore, an opioid signed contract is on the chart. Risk assessment tool is moderate. Functional assessment is 54/70. Recreational drug use, she denies. She is a former smoker and does not drink alcohol. According to the prescription monitoring system, the patient is filling appropriately. She is out of her oxycodone today due to the pharmacy not having methadone in a timely fashion. She was a few days without that medication and did take a few extra oxycodone. According to the prescription monitoring system, she is 105 MME currently. There is a drug screen on her chart that was appropriate for her medications. PHYSICAL EXAMINATION: GENERAL: This is alert and oriented, well-developed, well-nourished, slightly depressed 49-year-old female who appears her stated age, placing her current pain score at 7/10 today. HEENT: Normocephalic, atraumatic. Extraocular eye muscles are intact. She is wearing a mask. MUSCULOSKELETAL: She has pain and tingly sensation that radiates from her hips into her bilateral knees, greater on the left than the right. She has slight swelling behind her right knee today from a Canela's cyst that is tender to the touch. Her lower extremity strength is symmetrical at 5/5. She has a slightly antalgic gait. Pain is increased with prolonged standing. ASSESSMENT: 1. Chronic pain, status post stem cell placement. 2. Avascular necrosis in her bilateral knees. 3. Bilateral hip pain. 4. Depression and anxiety. 5. Recent seizure activity. 6. Management of high risk medications under terms of written opioid agreement. We reviewed the fact that opiate medications are being used to provide analgesia adequate to support activities of daily living, not attempting to achieve a specific pain score on the 0-10 Visual Analog Scale. The current opiate medications are providing sufficient analgesia to allow the patient to participate in activities of daily living. The patient is not exhibiting any aberrant behavior suggestive of drug diversion. The patient is not having any adverse reactions to medications. The patient is not suffering from daytime somnolence or mental acuity changes. The patient is managing opiate-induced constipation with appropriate yvsw-ggn-dilasrr agents and dietary considerations. The patient was counseled on concern for caution with operating a motor vehicle while using opiate medications. PLAN: 1. We discussed treatment options with the patient today. The patient is [facility] [address] [place] [address] PAIN MANAGEMENT CONSULTATION Name: ROBYFREDERIC KAREN Room #: REG NIYAH Mazariegos#: [id number] Admission: 07/11/20 Attend Phys: Radha Sorensen Discharge: Date of : 74 Report #: [id number] requesting an increase in her opioid medications. I explained to her based on the CDC guidelines, we are unable to increase her medications further. She is on a high dose based on the conversion factor of methadone. We will continue her on her 75 tablets of oxycodone a month and see if her pain does decrease slightly since she is back on her current regimen since she was without her methadone for several days. The patient verbalizes understanding. She reports that since she has been having increase, she was hopeful for an increase in her oxycodone, but understands. Today, we will have Dr. Ralph Cardoza send her methadone 10 mg b.i.d. for 1 month, quantity 60 as well as OxyIR 10 mg, #75. This enables her 2 tablets every day with several days, allowing 3 tablets a day. 2. We did decide to increase her Lyrica to 3 tablets a day. I explained to her that this may be beneficial in decreasing her pain. I encouraged the patient to take 1 tablet in the morning and 2 at night or if she finds it more beneficial, 1 tablet spaced 3 times throughout the day, quantity 90 will be sent of 100 mg Lyrica tablets. 3. The patient has recently stopped her amitriptyline. She felt that it was not beneficial, had been slowly decreasing her dose. I explained to her that taking the 2 Lyrica at bedtime may be beneficial in helping her with some sleep issues as well. 4. We did talk about her ongoing constipation issues. She does take MiraLax, apple cider vinegar and other zdkn-kza-zvlvxng medications as needed. I encouraged her to possibly try MiraLax twice a day and if this has not been beneficial, we may start her on an opioid-induced constipation medication at her next visit. 5. The patient is seen in collaboration with Dr. Ralph Cardoza. Her next visit will be a telemedicine appointment due to transportation issues and therefore, we will see her in-person in 2 months. <ELECTRONICALLY SIGNED> By: Radha Sorensen 07/11/20 1515 1031 1315 Radha Sorensen /niya
== END ==
LOC: PAIN 06:49
PROVIDERS: ATTEND Clinical Nurse Specialist Adult Health
DX: M87.852 Other osteonecrosis, left femur (principal); M87.851 Other osteonecrosis, right femur; G89.29 Other chronic pain; M25.551 Pain in right hip; M25.552 Pain in left hip; F41.8 Other specified anxiety disorders; R56.9 Unspecified convulsions; F11.20 Opioid dependence, uncomplicated; Z79.899 Other long term (current) drug therapy

== ENCOUNTER → 2020-08-08 | Outpatient (CLI) | payer OTHER ==
[~2020-08-08] MED LIST changes: +B12 ACTIVE1000 MCG PO; +CALCIUM + D3 E1 EACH PO; +FOLIC ACID1 MG PO; +VEGETABLE LAXA8.6 M1 PO
--- NOTE | 2020-08-08 14:49 | HPC ---
[facility] [address] [place] [address] PAIN MANAGEMENT CONSULTATION Name: FREDERIC CA Room #: REG NIYAH Winifred.#: [id number] Admission: 08/08/20 Attend Phys: Radha Sorensen Discharge: Date of : 74 Report #: [id number] CC: Radha Cardoza MD DATE OF SERVICE: 08/08/2020 CHIEF COMPLAINT: Avascular necrosis with bilateral knee pain. This is a telemedicine appointment due to the patient unable to drive due to recent seizure activity in regards to her COVID diagnosis. She has consented to this Telemed appointment. We have spoken with her from 8:40-10:00. HISTORY OF PRESENT ILLNESS: This is a pleasant 49-year-old that I am speaking with via the [facility] for a Telemed appointment regarding her opioid medications. Today, she is reporting her pain score at 3-4, doing quite well with her current regimen. She reports that most of her pain is in her left hip today. Occasionally, she may have some right leg pain. She does report some occasional back pain, but that has been worse since she has been gardening and working outside. She is unable to go to work currently for [employer] due to her seizure activity since she is not able to drive. She is at home off work for at least 4 more months unless she has another seizure. The patient reports she has not been having any seizure-type activities. The patient is reporting she is trying to walk and ride a stationary bike. She is not going to the pool, which she does find most beneficial, but is afraid to do that with the COVID outbreak. She also believes that the Lyrica increase from 2 tablets a day to 3 tablets a day has been beneficial in helping reduce some of her pain, though she continues to find sleep problematic at night. She is scheduled to see a psychologist on the of this month due to ongoing anxiety and depression issues. ALLERGIES: No known drug allergies. CURRENT LIST OF MEDICATIONS: OxyIR p.r.n., methadone 10 mg p.r.n., gabapentin 100 mg t.i.d., Cymbalta, Flexeril, Xarelto, Lipitor, Vascepa, omeprazole, ascorbic acid, Mag-Ox, melatonin, vitamin D, and alprazolam. PQRS: 1. She has osteoarthritic changes in her hips and knees bilaterally. She denies any rheumatoid arthritis. 2. Height and weight are deferred as well as vital signs due to a Telemed appointment. Pain score is 3 to 4. Fall risk. Denies dizziness, does not need help walking or standing, has not fallen in the last 3 months. The patient is on Xarelto as well as medicines for hypertension. Opioid therapy is greater than 6 weeks; therefore, an opioid signed contract is on the chart. Her risk assessment is moderate. Functional assessment is 54/70. 3. Recreational drug use, she denies. She is a former smoker and does not drink alcohol. According to the prescription monitoring system, the patient is filling appropriately in a timely fashion. She is due to fill her medications next week. She does take alprazolam and has been stable on that medication with her methadone for quite some time. We will check a random drug screen on this patient at her next visit. There is one currently on the chart. Physical exam is a review of systems due to this being a telemedicine appointment. This is alert and orientated 49-year-old, who is answering all my questions appropriately. She is rating her pain score at 3-4 today. She reports pain with ambulation and bending with no swelling in her legs. ASSESSMENT: 1. Chronic pain, status post stem cell replacement. 2. Avascular necrosis of the bilateral knees. 3. Bilateral hip pain. 4. Depression and anxiety. 5. Recent seizure disorder, off work currently. 6. Management of high risk medications under terms of written opioid agreement. PLAN: 1. We discussed treatment options with the patient today. She finds that the medication is beneficial, though some days she does have increasing pain. She believes that the increase in Lyrica from 2 tablets to 3 tablets has decreased some of her neuropathic symptoms in her legs. We will continue the Lyrica dose of 100 mg 1 in the morning and 2 at night. Script sent today by Dr. Cardoza for #90 with one additional refill. 2. We did discuss her methadone and OxyIR. The patient is satisfied with 75 tablets a month, though at times, she states she would like to take more, feels that does control her pain. She does feel that sometimes her methadone is not as beneficial as it was when she initially started it, but overall feels like she is doing quite well. I explained to her that we do need to keep her morphine mEq in consideration when prescribing her medications and currently she is at 105 morphine mEq, which is higher than the CDC recommends, but she has been stable on these meds for some time. We will continue on these medications, but encouraging her to take less oxycodone on her better days that enables her to take a slight increase on her worst days. The patient verbalizes understanding. Scripts will be sent electronically for 2 months of her methadone and oxycodone to her pharmacy. 3. The patient will return to the clinic in 2 months. At that time, we will obtain a urine drug screen on this patient. The patient is seen today in collaboration with Dr. Ralph Cardoza. <ELECTRONICALLY SIGNED> By: Radha Sorensen 08/08/20 1449 [id number] Radha Sorensen /niya
== END ==
LOC: TELEPC 06:44
PROVIDERS: ATTEND Clinical Nurse Specialist Adult Health
DX: M87.88 Other osteonecrosis, other site (principal); G89.29 Other chronic pain; M25.551 Pain in right hip; M25.552 Pain in left hip; F41.8 Other specified anxiety disorders; G40.909 Epilepsy, unspecified, not intractable, without status epilepticus; F11.20 Opioid dependence, uncomplicated; Z79.899 Other long term (current) drug therapy

== ENCOUNTER → 2020-10-10 | Outpatient (CLI) | payer OTHER ==
[~2020-10-10] VITALS: Ht 167.6 cm; Wt 84.8 kg
[~2020-10-10] MED LIST changes: +DIPHENHIST50 MG PO
[2020-10-10 08:23] VITALS: BP 118/81
--- NOTE | 2020-10-10 08:32 | NUR ---
Pain Clinic Assessment: 1. History of Osteoarthritis: KNEES HIP History of Rheumatoid Arthritis: DENIES 2. Height: 5 ft. 6 in. 167.6 cm. Weight: 187.0 lb. oz. 84.823 kg. Patient's BMI: 30.2 3. Vital Signs: BP: 118/81 Pulse: 82 Resp: 16 Temp: 02 Sat: 95 ECG Mon: 4. Pain Intensity: 7 5. Fall Risk: Dizziness: N Needs help standing or walking: N Fallen in the last 3 months: N Fall risk comments: 6. Patient on Blood Thinner: XARELTO 7. History of Hypertension: Y 8. Opioid Therapy greater than 6 weeks: Y Opiate Contract Signed: 06/19/17 9. Risk Assessment Tool Provided: mod-4 10. Functional Assessment Tool: 11. Recreational Drug Use: Never Drug Type: Tobacco Use: Former Smoker Tobacco Type: Amount or Packs/day: How Many Years: Alcohol Use: No Frequency: Quant:
--- NOTE | 2020-10-10 15:15 | HPC ---
[facility] [address] [place] [address] PAIN MANAGEMENT CONSULTATION Name: FREDERIC CA Room #: REG [facility] M..#: [id number] Admission: 10/10/20 Attend Phys: Radha Sorensen Discharge: Date of : 74 Report #: [id number] THIS REPORT FOR: cc: Sheridan White Cindy RNP Hocker,Radha MALLORY ~ DATE OF SERVICE: 10/10/2020 CHIEF COMPLAINT: Avascular necrosis with bilateral knee pain. HISTORY OF PRESENT ILLNESS: This is a pleasant 50-year-old female who returns to the pain clinic today for a refill of her medications. Today, she is reporting a pain score of 7/10 stating most of her pain is located in her bilateral knees, though she does occasionally have right hip pain. The patient states that her pain has been increasing behind her right knee. She believes this has to do with her Canela's cyst. She has been in contact with the [facility] and they are in the process of ordering an MRI of both of her knees for evaluation. The patient states her pain is worse with walking, standing and prolonged sitting, but she does find the medications beneficial in controlling most of her pain. She does report recently having difficulty sleeping at night and is wondering if we have any options to help assist with that. The patient reportS she has not had any seizure activity since her initial seizure in May. She is hopeful to return to work in another month. She has been off work since she is not able to drive and her job requires her to be able to drive. ALLERGIES: No known drug allergies. CURRENT LIST OF MEDICATIONS: Benadryl, calcium, OxyIR p.r.n., methadone 10 mg b.i.d., Lyrica 100 mg t.i.d., Senokot, vitamin B12, folic acid, Cymbalta, Flexeril, Xarelto, Lipitor, Vascepa topical cream, vitamin C, and alprazolam. PQRS: 1. She has arthritic changes in her hips and knees bilaterally. She denies any rheumatoid arthritis. 2. Height is 5 feet 6 inches, weight is 187, BMI is 30. 3. Vital signs 118/81, pulse is 82, respirations 16, oxygen sat is 95%. 4. Pain score 7/10. 5. Denies dizziness, does not need help walking or standing, has not fallen in the last 3 months. 6. The patient is on Xarelto and also on medications for hypertension. 7. Opioid therapy is greater than 6 weeks; therefore, an opioid signed contract is on the chart. Risk assessment is moderate. Functional assessment is 54/70. 8. Recreational drug use, she denies. She is a former smoker and does not drink alcohol. [facility] [address] [place] [address] PAIN MANAGEMENT CONSULTATION Name: FREDERIC CA Room #: REG NIYAH Mazariegos#: [id number] Admission: 10/10/20 Attend Phys: Radha Sorensen Discharge: Date of : 74 Report #: [id number] According to the prescription monitoring system, she is filling appropriately in a timely fashion. Her morphine milliequivalent is 98 MMEs per day. This has decreased, but still above the CDC recommendations. She is followed on a bimonthly basis and safeguards her meds at all times. We will collect a random drug screen on this patient today. She does take alprazolam on a very p.r.n. basis for her anxiety. PHYSICAL EXAMINATION: GENERAL: This is alert and orientated, very pleasant, well-developed, well-nourished, well-hydrated 50-year-old female who appears her stated age, placing her current pain score today at 7/10. HEENT: Normocephalic, atraumatic. Extraocular eye muscles are intact. She is wearing a mask. MUSCULOSKELETAL: She has pain that radiates from her hips into her bilateral knees, greater on the right today than left due to swelling behind her right knee today from a Canela's cyst that is tender to the touch and pain increases with ambulation. No swelling noted on her left knee. Lower extremity strength is symmetrical at 5/5. She has an antalgic gait. ASSESSMENT: 1. 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 2. Avascular necrosis in bilateral knees. 3. Bilateral hip pain. 4. Depression and anxiety. 5. Recent seizure activity. 6. Medication management under terms of written opioid agreement. We reviewed the fact that opiate medications are being used to provide analgesia adequate to support activities of daily living, not attempting to achieve a specific pain score on the 0-10 Visual Analog Scale. The current opiate medications are providing sufficient analgesia to allow the patient to participate in activities of daily living. The patient is not exhibiting any aberrant behavior suggestive of drug diversion. The patient is not having any adverse reactions to medications. The patient is not suffering from daytime somnolence or mental acuity changes. The patient is managing opiate-induced constipation with appropriate [id number]-[id number] agents and dietary considerations. The patient was counseled on concern for caution with operating a motor vehicle while using opiate medications. PLAN: 1. We discussed treatment options with the patient and spouse today. The patient is having increasing pain at this time, greater on her right knee than the left. She has been in contact with males. She is awaiting an MRI report order to have x-rays taken of both knees. She is asking for orthopedic surgeons here locally. We have provided her with Dr. Sathish Shi's name. He is at [address] [place] [address] PAIN MANAGEMENT CONSULTATION Name: FREDERIC CA Room #: REG NIYAH Mazariegos#: [id number] Admission: 10/10/20 Attend Phys: Radha Sorensen Discharge: Date of : 74 Report #: [id number] Rigoberto Laird for her to follow up with since she is unable to go to [place] at this time. I have also encouraged her to try some Voltaren gel on her knees. She is unable to take oral anti-inflammatories due to her Xarelto. This alternative of a topical anti-inflammatory may be beneficial in helping reduce some of her pain. 2. We will continue her on her methadone 10 mg twice a day. The patient does find this beneficial. Scripts will be sent electronically by Dr. Cardoza today for 60 tablets for 2-month supply along with her OxyIR, quantity #75. 3. We will continue her on her Lyrica. The patient takes 100 mg in the morning and 200 at night. Scripts sent for 2-month supply. 4. The patient is stating she is having more anxiety and at times is not being able to sleep at night due to her anxious state. I have encouraged her to talk to her physician that prescribes her Cymbalta. They may be able to increase that medication since she has leery to take her alprazolam due to her seizure activity, also encouraging her to take her Cymbalta in the evening to see if that is beneficial in helping her sleep. The patient verbalizes understanding. 5. The patient is seen in collaboration with Dr. Cardoza today. 6. We did collect a random drug screen and she will see him in 2 months. <ELECTRONICALLY SIGNED> By: Radha Sorensen 10/10/20 1515 [id number] Radha Sorensen /nt
== END ==
LOC: PAIN 06:51
PROVIDERS: ATTEND Clinical Nurse Specialist Adult Health
DX: G89.29 Other chronic pain (principal); M87.88 Other osteonecrosis, other site; M25.551 Pain in right hip; M25.552 Pain in left hip; F32.9 Major depressive disorder, single episode, unspecified; F41.9 Anxiety disorder, unspecified; Z79.891 Long term (current) use of opiate analgesic

== ENCOUNTER → 2020-12-07 | Outpatient (CLI) | payer OTHER ==
[~2020-12-07] VITALS: Ht 167.6 cm; Wt 84.2 kg
[~2020-12-07] MED LIST changes: +VITAMIN D250 MC1 PO
[2020-12-07 09:49] VITALS: BP 125/86
--- NOTE | 2020-12-07 09:57 | NUR ---
Pain Clinic Assessment: 1. History of Osteoarthritis: KNEES HIP History of Rheumatoid Arthritis: DENIES 2. Height: 5 ft. 6 in. 167.6 cm. Weight: 185.6 lb. oz. 84.188 kg. Patient's BMI: 30.0 3. Vital Signs: BP: 125/86 Pulse: 67 Resp: 14 Temp: 02 Sat: 98 ECG Mon: 4. Pain Intensity: 7-8 5. Fall Risk: Dizziness: N Needs help standing or walking: N Fallen in the last 3 months: N Fall risk comments: 6. Patient on Blood Thinner: XARELTO 7. History of Hypertension: Y 8. Opioid Therapy greater than 6 weeks: Y Opiate Contract Signed: 06/19/17 9. Risk Assessment Tool Provided: mod-4 10. Functional Assessment Tool: 11. Recreational Drug Use: Never Drug Type: Tobacco Use: Former Smoker Tobacco Type: Amount or Packs/day: How Many Years: Alcohol Use: No Frequency: Quant:
== END ==
LOC: PAIN 09:22
PROVIDERS: ATTEND Anesthesiology Pain Medicine
DX: Z76.0 Encounter for issue of repeat prescription (principal); G89.29 Other chronic pain; I96 Gangrene, not elsewhere classified; M25.551 Pain in right hip; M25.552 Pain in left hip; G40.909 Epilepsy, unspecified, not intractable, without status epilepticus; I10 Essential (primary) hypertension; F32.9 Major depressive disorder, single episode, unspecified; F41.9 Anxiety disorder, unspecified; Z79.891 Long term (current) use of opiate analgesic; Z87.891 Personal history of nicotine dependence; Z79.899 Other long term (current) drug therapy; Z88.8 Allergy status to other drugs, medicaments and biological substances

== ENCOUNTER → 2021-02-06 | Outpatient (CLI) | payer OTHER ==
[~2021-02-06] MED LIST changes: +CYMBALTA60 MG PO
--- NOTE | 2021-02-07 09:06 | HPC ---
[facility] [address] [place] [address] PAIN MANAGEMENT CONSULTATION Name: FREDERIC CA Room #: REG NIYAH Vitale.#: [id number] Admission: 02/06/21 Attend Phys: Radha Sorensen Discharge: Date of : 74 Report #: [id number] THIS REPORT FOR: cc: Sheridan White Cindy RNP Hocker,Radha MALLORY ~ DATE OF SERVICE: 02/06/2021 CHIEF COMPLAINT: Avascular necrosis, bilateral knee pain. This is a telemedicine appointment that I am speaking with patient from 13:08-13:23 that the patient has consented for. HISTORY OF PRESENT ILLNESS: This is a 50-year-old female who today is rating her pain score as 6/10, which is slightly higher than it had been recently. She has returned to work and is required to do some overtime. The patient reports when she works 10-hour days, she has more knee pain as a result. She reports it is a throbbing, aching, occasional stabbing pain. She is wondering today if she is able to increase her Lyrica dose. She finds that after working that her nerves are on fire and is wondering about increasing that medication. Overall, she believes the slight increase of oxycodone from 75-90 tablets was beneficial and continues on her methadone twice a day. She denies any constipation or daytime somnolence as a result of her opioids. The patient does report she recently had both of her COVID vaccines as well as the rest of her family has been vaccinated. ALLERGIES: BUPROPION. CURRENT LIST OF MEDICATIONS: Vitamin D, Lyrica, OxyIR 10 mg, methadone 10 mg b.i.d., Benadryl p.r.n., calcium, Senokot, B12, folic acid, Cymbalta, Flexeril p.r.n., Xarelto, atorvastatin, Vascepa, ascorbic acid and alprazolam. PATIENT'S PQRS: 1. She has osteoarthritic changes in her hips and knees. Denies any rheumatoid arthritis. 2. Height, weight and vital signs are deferred due to the Telemed appointment. The patient's pain score today is 6/10. 3. Fall risk. Denies dizziness, does not need help walking or standing, has not fallen in the last 3 months. The patient is on Xarelto and does not take medicine for hypertension. Her opioid therapy is greater than 6 weeks; therefore, an opioid signed contract is on the chart. Risk assessment is moderate. Functional assessment is 54/70. 4. The patient is not using any recreational drugs. She is a former smoker [place] [address] PAIN MANAGEMENT CONSULTATION Name: ROBYFREDERIC KAREN Room #: REG NIYAH Mazariegos#: [id number] Admission: 02/06/21 Attend Phys: Radha Sorensen Discharge: Date of : 74 Report #: [id number] According to the prescription monitoring system, the patient is filling appropriately in a timely fashion. She is due to fill her medications today. There is a recent drug screen on the chart, is appropriate for her medications. Her morphine milliequivalent according to the CDC guidelines is 105 MME. She is seen in our clinic every 2 months. PHYSICAL EXAMINATION: GENERAL: This is a review of systems due to a Telemed appointment. She is alert and oriented, answering all my questions appropriately. She is a good historian. MUSCULOSKELETAL: Has tenderness in her knees bilaterally, greater on the left than the right today. Pain radiates from her hips into her legs bilaterally. IMPRESSION: 1. 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 2. Avascular necrosis in bilateral knees. 3. Bilateral hip pain. 4. Depression and anxiety. 5. History of seizure disorders. 6. Complex medical management utilizing scheduled opioid medications. PLAN: 1. We discussed treatment options with the patient today. The patient finds the slight increase in oxycodone beneficial knowing that she is able to take 3 tablets occasionally though according to the records, she has been greater than 30 days since her last fill. We will continue her OxyIR 10 mg, #90, for today and again in [address] Ralph Cardoza will send these electronically. The patient will also continue on her methadone 10 mg tablets, #60 for today and 4-week release. 2. We did discuss her Lyrica. The patient wants an increase in this medication due to increasing pain and her nerves, especially after working long days. We, instead of increasing this medicine, discussed altering how she takes this medicine. She is not in very much pain upon awakening in the morning. She will adjust the morning dose until later in the day and continue to at bedtime. If she finds this is not beneficial, then she may alter the doses, one in the morning, one at midday and one at bedtime. She will try this for the next few months. If it is not helpful, we will adjust at her next visit. Time spent in patient consultation, reviewing pertinent imaging, clinical notes, correlation of physical findings and medical documentation to determine treatment, 15 minutes. Time spent in preparation for appointment, reviewing prescription monitoring reports, reviewing previous records and previous treatment options, reviewing current medications was [address] [address] PAIN MANAGEMENT CONSULTATION Name: FREDERIC CA Room #: [facility] NIYAH Mazariegos#: [id number] Admission: 02/06/21 Attend Phys: Radha Sorensen Discharge: Date of : 74 Report #: [id number] Time spent in preparation and sending electronic prescriptions with collaborating physician, Dr. Ralph Cardoza and documentation of treatment and plan of care is 5 minutes. Total time spent 25 minutes on this Telemed appointment. <ELECTRONICALLY SIGNED> By: Radha Sorensen 02/07/21 0906 1333 13 Radha Sorensen /niya
== END ==
LOC: PAIN 10:26 → TELEPC 10:51
PROVIDERS: ATTEND Clinical Nurse Specialist Adult Health
DX: M87.88 Other osteonecrosis, other site (principal); M25.551 Pain in right hip; M25.552 Pain in left hip; F32.9 Major depressive disorder, single episode, unspecified; F41.9 Anxiety disorder, unspecified; Z88.8 Allergy status to other drugs, medicaments and biological substances; Z79.899 Other long term (current) drug therapy

== ENCOUNTER → 2021-04-09 | Outpatient (CLI) | payer OTHER ==
[~2021-04-09] VITALS: Ht 167.6 cm; Wt 83.6 kg
[2021-04-09 08:31] VITALS: BP 131/84
--- NOTE | 2021-04-09 08:54 | NUR ---
Pain Clinic Assessment: 1. History of Osteoarthritis: KNEES HIP History of Rheumatoid Arthritis: DENIES 2. Height: 5 ft. 6 in. 167.6 cm. Weight: 184.2 lb. oz. 83.553 kg. Patient's BMI: 29.7 3. Vital Signs: BP: 131/84 Pulse: 78 Resp: 14 Temp: 02 Sat: 100 ECG Mon: 4. Pain Intensity: 8 AVG 5. Fall Risk: Dizziness: N Needs help standing or walking: N Fallen in the last 3 months: N Fall risk comments: 6. Patient on Blood Thinner: XARELTO 7. History of Hypertension: Y 8. Opioid Therapy greater than 6 weeks: Y Opiate Contract Signed: 06/19/17 9. Risk Assessment Tool Provided: mod-4 10. Functional Assessment Tool: 11. Recreational Drug Use: Never Drug Type: Tobacco Use: Former Smoker Tobacco Type: Amount or Packs/day: How Many Years: Alcohol Use: No Frequency: Quant:
--- NOTE | 2021-04-10 08:38 | HPC ---
[facility] [address] [address] PAIN MANAGEMENT CONSULTATION Name: FREDERIC CA Room #: REG [facility] M..#: [id number] Admission: 04/09/21 Attend Phys: Radha Sorensen Discharge: Date of : 74 Report #: [id number] THIS REPORT FOR: cc: Sheridan White,Radha Baldwin ~ DOC #: [id number] cc: Sheridan White NP, MD Radha Barton NP DATE OF SERVICE: 04/09/2021 CHIEF COMPLAINT: Avascular necrosis, bilateral leg pain. HISTORY OF PRESENT ILLNESS: This is a 50-year-old female who returns to the pain clinic today for renewal of her opioid medications. Unfortunately, the patient realized last [place] that she was almost out of her medications and she is here today due to the fact that she is out of her medications. Normally, she has been quite responsible being here on time, but she should have been here last week to fill her medications. Today, therefore she is reporting increased pain score of 8/10. She has been slowly decreasing some of her pain medications over the last week and that has caused an increase in her pain. Her pain is located in her bilateral knees, but lately she has been having more pain in her left hip as well. She recently reports having x-rays done for the [facility] of her knees and is awaiting those results and to schedule an x-ray of her hips bilaterally. She will then follow up with [facility] where she has undergone procedures for her avascular necrosis. The patient states that she is considering having hip surgery on her left hip because it has become so problematic with any walking. The patient describes her pain as an aching, throbbing, stabbing sensation that is especially worse with walking, standing, which she does have to do with her job. She believes her normal dose of medication as well as resting are beneficial. She denies significant constipation that is not relieved by vpjx-lju-vultydi laxatives and denies any daytime somnolence. ALLERGIES: BUPROPION. MEDICATIONS: Current list of medications, Lyrica 100 mg 3 times a day, OxyIR 10 mg p.r.n., methadone 10 mg b.i.d., Cymbalta 60 mg daily, vitamin D, Benadryl, calcium, vegetable laxative, B12 Active, folic acid, Flexeril, Xarelto, Lipitor, Vascepa, vitamin C and alprazolam p.r.n. PQRS: 1. She has osteoarthritic changes in her hips and knees. Denies any rheumatoid arthritis. Height is 5 feet 6 inches, weight is 184, BMI is 29. 2. Vital signs, 131/84, pulse is 78, respirations 14, oxygen [place] [address]. [place] [address] PAIN MANAGEMENT CONSULTATION Name: FREDERIC CA Room #: REG [facility]..#: [id number] Admission: 04/09/21 Attend Phys: Radha Sorensen Discharge: Date of : 74 Report #: [id number] 3. Pain score is 8/10. 4. Denies dizziness. Does not need help walking. Has not fallen in the last 3 months. 5. The patient is on Xarelto as well as medications for hypertension. Opioid therapy is greater than 6 weeks; therefore, an opioid signed contract is on the chart. Risk assessment is moderate. 6. Functional assessment is 54/70. 7. Recreational drug use, she denies. She is a former smoker, does not drink alcohol. According to the prescription monitoring system, she is due to fill her medications last week, filling them in a timely fashion from Dr. Cardoza. Her morphine mEq is 125. PHYSICAL EXAMINATION: GENERAL: This is a well-developed, well-nourished white female who appears her stated age of 50. She rates her pain score today at 7/10. She is a good historian. HEENT: Normocephalic, atraumatic. Extraocular eye muscles are intact. Mucous membranes are moist. She is wearing a facial covering. NECK: Without adenopathy or JVD. MUSCULOSKELETAL: She was without significant scoliosis, kyphosis, or lordosis. Upper extremity strength is symmetrical at 5/5. She has discomfort in her hips bilaterally and radiating into her knees, greater pain in the left hip. No swelling noted today in her knees bilaterally. She has an antalgic gait. Lower extremity strength is symmetrical at 5/5. IMPRESSION: 1. 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 2. Avascular necrosis of the knees bilaterally. 3. Bilateral hip pain, left greater than right. 4. Depression and anxiety. 5. History of seizure disorder. 6. Medication management under scheduled opioid medications. We reviewed the fact that opiate medications are being used to provide analgesia adequate to support activities of daily living, not attempting to achieve a specific pain score on the 0-10 Visual Analog Scale. The current opiate medications are providing sufficient analgesia to allow the patient to participate in activities of daily living. The patient is not exhibiting any aberrant behavior suggestive of drug diversion. The patient is not having any adverse reactions to medications. The patient is not suffering from daytime somnolence or mental acuity changes. The patient is managing opiate-induced constipation with appropriate huyw-iwu-gnjndcg agents and dietary considerations. The patient was counseled on concern for caution with operating a motor vehicle while using opiate medications. [facility] [address] [place] [address] PAIN MANAGEMENT CONSULTATION Name: FREDERIC CA [id number] Admission: 04/09/21 Attend Phys: Radha Sorensen Discharge: Date of : 74 Report #: [id number] PLAN: We discussed treatment options with the patient today. Unfortunately, the patient did not make a timely appointment for her medications and has decreased usage over the past few days, to make to her appointment today. 1. We will continue her on her methadone 10 mg b.i.d. and OxyIR 2-3 times a day. The patient normally finds these very beneficial in decreasing her pain, though the weather of heat and walking at her job does increase her pain. 2. The patient is to continue to follow up with [facility] and has recently had x-rays of her knees bilaterally taken and is awaiting orders for her hip x-rays, then she will follow up with the [facility] for possible surgery. She is also considering disability and is meeting with an advisor regarding this issue. 3. The patient will return in 2 months for medication management. Time spent with the patient in consultation, reviewing recent studies and clinical notes and physician, physical examination and correlation of findings and medical documentation to determine possible treatment options, 12 minutes. Time spent preparing for appointment, reviewing prescription monitoring system reports, reviewing previous records and proposed treatment options, reviewing current medications, 5 minutes. Time spent preparing and sending electronic prescriptions with collaborating physician, Dr. Eddi Arredondo today and documentation of visit and plan of treatment took 5 minutes. Total time spent 22 minutes. HENNY Samano/OTTONIEL <ELECTRONICALLY SIGNED> By: Radha Sorensen 04/10/21 [id number] Radha Sorensen /nt
== END ==
LOC: PAIN 04-08 14:07
PROVIDERS: ATTEND Clinical Nurse Specialist Adult Health
DX: G89.4 Chronic pain syndrome (principal); M87.88 Other osteonecrosis, other site; G40.909 Epilepsy, unspecified, not intractable, without status epilepticus; F32.9 Major depressive disorder, single episode, unspecified; F41.9 Anxiety disorder, unspecified; Z79.891 Long term (current) use of opiate analgesic; Z79.899 Other long term (current) drug therapy

== ENCOUNTER → 2021-06-05 | Outpatient (CLI) | payer OTHER ==
[~2021-06-05] VITALS: Ht 167.6 cm; Wt 81.1 kg
[2021-06-05 08:06] VITALS: BP 120/81
--- NOTE | 2021-06-05 08:24 | NUR ---
Pain Clinic Assessment: 1. History of Osteoarthritis: KNEES HIP History of Rheumatoid Arthritis: DENIES 2. Height: 5 ft. 6 in. 167.6 cm. Weight: 178.8 lb. oz. 81.103 kg. Patient's BMI: 28.9 3. Vital Signs: BP: 120/81 Pulse: 85 Resp: 16 Temp: 02 Sat: 100 ECG Mon: 4. Pain Intensity: 8 AVG (TODAY 5-6) 5. Fall Risk: Dizziness: N Needs help standing or walking: N Fallen in the last 3 months: N Fall risk comments: 6. Patient on Blood Thinner: XARELTO 7. History of Hypertension: Y 8. Opioid Therapy greater than 6 weeks: Y Opiate Contract Signed: 06/19/17 9. Risk Assessment Tool Provided: mod-4 10. Functional Assessment Tool: / 11. Recreational Drug Use: Never Drug Type: Tobacco Use: Former Smoker Tobacco Type: Amount or Packs/day: How Many Years: Alcohol Use: No Frequency: Quant:
== END ==
LOC: PAIN 06:49
PROVIDERS: ATTEND Anesthesiology Pain Medicine
DX: G89.29 Other chronic pain (principal); M87.88 Other osteonecrosis, other site; M25.552 Pain in left hip; M25.551 Pain in right hip; F41.8 Other specified anxiety disorders; Z88.8 Allergy status to other drugs, medicaments and biological substances; Z79.891 Long term (current) use of opiate analgesic; Z79.899 Other long term (current) drug therapy; Z87.891 Personal history of nicotine dependence

== ENCOUNTER → 2021-08-02 | Outpatient (CLI) | payer OTHER ==
[~2021-08-02] VITALS: Ht 165.1 cm; Wt 83.0 kg
[~2021-08-02] MED LIST changes: +BACLOFEN20 MG PO; +ZANAFLEX4 M2 PO
[2021-08-02 09:02] VITALS: BP 135/85
--- NOTE | 2021-08-02 09:06 | NUR ---
Pain Clinic Assessment: 1. History of Osteoarthritis: KNEES HIP History of Rheumatoid Arthritis: DENIES 2. Height: 5 ft. 5 in. 165.1 cm. Weight: 183.0 lb. oz. 83.008 kg. Patient's BMI: 30.5 3. Vital Signs: BP: 135/85 Pulse: 84 Resp: 16 Temp: 02 Sat: 94 ECG Mon: 4. Pain Intensity: 8 5. Fall Risk: Dizziness: N Needs help standing or walking: N Fallen in the last 3 months: N Fall risk comments: 6. Patient on Blood Thinner: XARELTO 7. History of Hypertension: Y 8. Opioid Therapy greater than 6 weeks: Y Opiate Contract Signed: 06/19/17 9. Risk Assessment Tool Provided: mod-4 10. Functional Assessment Tool: 11. Recreational Drug Use: Never Drug Type: Tobacco Use: Former Smoker Tobacco Type: Amount or Packs/day: How Many Years: Alcohol Use: No Frequency: Quant:
== END ==
LOC: PAIN 07:03
PROVIDERS: ATTEND Anesthesiology Pain Medicine
DX: G89.29 Other chronic pain (principal); M87.89 Other osteonecrosis, multiple sites; F41.8 Other specified anxiety disorders; Z79.899 Other long term (current) drug therapy; Z88.8 Allergy status to other drugs, medicaments and biological substances

== ENCOUNTER → 2021-10-04 | Outpatient (CLI) | payer OTHER ==
[~2021-10-04] VITALS: Ht 165.1 cm; Wt 79.8 kg
[2021-10-04 08:28] VITALS: BP 123/93
--- NOTE | 2021-10-04 08:41 | NUR ---
Pain Clinic Assessment: 1. History of Osteoarthritis: KNEES HIP History of Rheumatoid Arthritis: DENIES 2. Height: 5 ft. 5 in. 165.1 cm. Weight: 176.0 lb. oz. 79.833 kg. Patient's BMI: 29.3 3. Vital Signs: BP: 123/93 Pulse: 87 Resp: 16 Temp: 02 Sat: 99 ECG Mon: 4. Pain Intensity: 3 TO 4 5. Fall Risk: Dizziness: N Needs help standing or walking: N Fallen in the last 3 months: N Fall risk comments: 6. Patient on Blood Thinner: XARELTO 7. History of Hypertension: Y 8. Opioid Therapy greater than 6 weeks: Y Opiate Contract Signed: 06/19/17 9. Risk Assessment Tool Provided: mod-4 10. Functional Assessment Tool: 11. Recreational Drug Use: Never Drug Type: Tobacco Use: Former Smoker Tobacco Type: Amount or Packs/day: How Many Years: Alcohol Use: No Frequency: Quant:
== END ==
LOC: PAIN 07:51
PROVIDERS: ATTEND Anesthesiology Pain Medicine
DX: G89.29 Other chronic pain (principal); M25.561 Pain in right knee; M25.562 Pain in left knee; M87.852 Other osteonecrosis, left femur; M87.851 Other osteonecrosis, right femur; F41.8 Other specified anxiety disorders; Z88.8 Allergy status to other drugs, medicaments and biological substances; Z79.899 Other long term (current) drug therapy

== ENCOUNTER → 2021-12-04 | Outpatient (CLI) | payer OTHER ==
[~2021-12-04] VITALS: Ht 165.1 cm; Wt 79.3 kg
[2021-12-04 08:12] VITALS: BP 123/88
--- NOTE | 2021-12-04 08:26 | NUR ---
Pain Clinic Assessment: 1. History of Osteoarthritis: KNEES HIP History of Rheumatoid Arthritis: DENIES 2. Height: 5 ft. 5 in. 165.1 cm. Weight: 174.8 lb. oz. 79.289 kg. Patient's BMI: 29.1 3. Vital Signs: BP: 123/88 Pulse: 94 Resp: 16 Temp: 02 Sat: 100 ECG Mon: 4. Pain Intensity: 4 5. Fall Risk: Dizziness: N Needs help standing or walking: N Fallen in the last 3 months: N Fall risk comments: 6. Patient on Blood Thinner: XARELTO 7. History of Hypertension: Y 8. Opioid Therapy greater than 6 weeks: Y Opiate Contract Signed: 06/19/17 9. Risk Assessment Tool Provided: mod-4 10. Functional Assessment Tool: 11. Recreational Drug Use: Never Drug Type: Tobacco Use: Former Smoker Tobacco Type: Amount or Packs/day: How Many Years: Alcohol Use: No Frequency: Quant:
== END ==
LOC: PAIN 07:38
PROVIDERS: ATTEND Clinical Nurse Specialist Adult Health
DX: M87.08 Idiopathic aseptic necrosis of bone, other site (principal); G89.29 Other chronic pain; M25.561 Pain in right knee; M25.562 Pain in left knee; M25.552 Pain in left hip; F32.A Depression, unspecified; F41.8 Other specified anxiety disorders; Z79.899 Other long term (current) drug therapy; Z88.8 Allergy status to other drugs, medicaments and biological substances